=== PATIENT | female | born 1935 | race Caucasian/White ===

== ENCOUNTER → 2023-08-17 11:30 | Outpatient (REF) | payer OTHER, SELFPAY | LOC: WOUND 11:30 | PROVIDERS: ATTENDING PHYSICIAN Surgery Plastic and Reconstructive Surgery; REFERRING PHYSICIAN Family Medicine | DX: L89.623 Pressure ulcer of left heel, stage 3 (principal); L89.150 Pressure ulcer of sacral region, unstageable; I87.2 Venous insufficiency (chronic) (peripheral); I89.0 Lymphedema, not elsewhere classified; I12.9 Hypertensive chronic kidney disease with stage 1 through stage 4 chronic kidney disease, or unspecified chronic kidney disease; N18.32 Chronic kidney disease, stage 3b; I06.0 Rheumatic aortic stenosis; G89.4 Chronic pain syndrome; R26.2 Difficulty in walking, not elsewhere classified; I44.1 Atrioventricular block, second degree; I47.29 Other ventricular tachycardia; Z95.0 Presence of cardiac pacemaker | CPT/HCPCS: 11042; 17250; 97597; 99213 ==

== ENCOUNTER → 2023-08-31 14:26 | Outpatient (REF) | payer OTHER, SELFPAY | LOC: WOUND 14:26 | PROVIDERS: ATTENDING PHYSICIAN Surgery; FAMILY PHYSICIAN Family Medicine | DX: L89.153 Pressure ulcer of sacral region, stage 3 (principal); I87.2 Venous insufficiency (chronic) (peripheral); I10 Essential (primary) hypertension; I89.0 Lymphedema, not elsewhere classified; I12.9 Hypertensive chronic kidney disease with stage 1 through stage 4 chronic kidney disease, or unspecified chronic kidney disease; N18.32 Chronic kidney disease, stage 3b; I06.0 Rheumatic aortic stenosis; G89.4 Chronic pain syndrome; R26.2 Difficulty in walking, not elsewhere classified; I44.1 Atrioventricular block, second degree; I47.29 Other ventricular tachycardia; Z95.0 Presence of cardiac pacemaker | CPT/HCPCS: 11042; 17250; 99213 ==

== ENCOUNTER → 2023-09-13 12:56 | Outpatient (REF) | payer OTHER, SELFPAY | LOC: WOUND 12:56 | PROVIDERS: ATTENDING PHYSICIAN Surgery; REFERRING PHYSICIAN Family Medicine | DX: I87.2 Venous insufficiency (chronic) (peripheral) (principal); L89.154 Pressure ulcer of sacral region, stage 4; N18.32 Chronic kidney disease, stage 3b; I89.0 Lymphedema, not elsewhere classified; I12.9 Hypertensive chronic kidney disease with stage 1 through stage 4 chronic kidney disease, or unspecified chronic kidney disease; I06.0 Rheumatic aortic stenosis; G89.4 Chronic pain syndrome; R26.2 Difficulty in walking, not elsewhere classified; I44.1 Atrioventricular block, second degree; I47.29 Other ventricular tachycardia; Z95.0 Presence of cardiac pacemaker | CPT/HCPCS: 11044; 72190; 76700 ==

== ENCOUNTER → 2023-09-20 14:32 | Outpatient (REF) | payer OTHER, SELFPAY | LOC: WOUND 14:32 | PROVIDERS: ATTENDING PHYSICIAN Surgery; REFERRING PHYSICIAN Family Medicine | DX: L89.154 Pressure ulcer of sacral region, stage 4 (principal); I87.2 Venous insufficiency (chronic) (peripheral); I89.0 Lymphedema, not elsewhere classified; R26.2 Difficulty in walking, not elsewhere classified | CPT/HCPCS: 11042 ==

== ENCOUNTER 2023-09-21 13:14 | Emergency (ER) | payer OTHER, SELFPAY ==
[2023-09-21 13:20] VITALS: BP 132/78
--- NOTE | 2023-09-21 15:43 | ED.GENMED ---
History of Present Illness
General
Chief Complaint: Wound Check/Suture Removal
Source: patient
Exam Limitations: none
Time Seen by Provider: 09/21/23 15:20
Nursing documentation reviewed up to this point in time: agreed with
Travel History
Have you had any contact with someone who has COVID-19?: No
Do you have any symptoms of coronavirus? Fever > 100 degrees, chills, cough, shortness of breath, sore throat, loss of taste or smell, muscle aches, or headache?: No
History of Present Illness
History of Present Illness:
87-year-old female presents emergency department with stage IV wound to sacrum. She has been seen at the wound center. She is them today and was told to come to the emergency department due to the bleeding. She is on Eliquis, and has had the
wound debrided recently.
Past History
Past History
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
ED Past Surgical History: Bowel resection (Gastric bypass), Cardiac (TAVR), Cholecystectomy, Orthopedic (Bilateral knee replacement, ) and Other (Cataracts, Gastric bypas)
Social History
Tobacco: Non-smoker
Alcohol: None
Personal:
Living: with family (Resides with son)
Employment: Retired
Family History
Family History: Other (reviewed and Noncontributory)
Review of Systems
Review of Systems
Allergies reviewed?: Yes
All Other Systems: Not applicable
Constitutional: Reports no symptoms
EENT: Reports no symptoms
Respiratory: Reports no symptoms
Cardiac: Reports no symptoms
ABD/GI: Reports no symptoms
: Reports no symptoms
Musculoskeletal: Reports no symptoms
Skin: Reports other (Open wound)
Neurological: Reports no symptoms
Endocrine: Reports no symptoms
Hematologic/Lymphatic: Reports bleeding
Psychiatric: Reports no symptoms
Phy Exam
Physical Exam
Physical Exam:
Physical Exam
General: no apparent distress, not acutely ill
Neck: supple. no meningeal signs.
HEENT: Pupils equal round reactive to light, EOMI
Lungs: no acute respiratory distress.
Abdomen: Nondistended
Neuro: alert and oriented.
Skin: no rash, open wound sacrum, gauze packing, slight ooze dark red blood
Psychiatric: well kept. interactive and cooperative
Extremities: no edema. no calf tenderness. negative homans. good distal pulses
Course
Vital Signs
Initial and Last Documented VS:
Initial Vital Signs
Temp Pulse Resp BP Pulse Ox
97.7 F 82 18 132/78 98
09/21/23 13:20 09/21/23 13:20 09/21/23 13:20 09/21/23 13:20 09/21/23 13:20
Last Documented Vital Signs
Temp Pulse Resp BP Pulse Ox
97.7 F 82 18 132/78 98
09/21/23 13:20 09/21/23 13:20 09/21/23 13:20 09/21/23 13:20 09/21/23 13:20
Procedures
Wound Exploration
Middle Sacrum:
Preparation: other (Saline)
Procedure- wound: probed to visualize
Findings- Extent of wound is: clearly visualized and other (Bleeding controlled, packed with Surgifoam)
MDM/Problems Addressed
Differential Diagnosis Includes:
Abscess, bleeding wound
MDM/Problems Addressed:
87-year-old female with bleeding sacral wound, slight ooze of blood, repacked with Surgifoam. Patient will follow-up with wound care.
Chronic conditions affecting care: Arrhythmia and Other (Anticoagulation)
Acute Exacerbation and/or Progression of Chronic Illness: Arrhythmia and Other (Anticoagulation)
*Pulse Oximetry
Patient hypoxic: no
*EKG
Interpreted by ED Provider?: NA
*Operations Support Analyst Interpretation
Rate: Operations Support Analyst- N/A
*Critical Care Note
Total Time (30-74mins, 75-104mins- exclusive of procedures): Not Applicable
Patient Management
Social determinants of health affecting care: Living situation
Escalation/DeEscalation of care consider admission/obs:
Admit not indicated
ED Attending Note
-
Portions of this chart may have been created with voice recognition software.� Occasional wrong word or��sound alike� substitutions may have occurred due to the inherent limitations of voice recognition software.
Discharge Plan
Departure
Patient Disposition: Home (Routine Discharge)
Date of Disposition: 09/21/23
Time of Disposition: 15:49
Patient with high blood pressure during this ER visit?: Yes
Discharge Problem:
Wound of sacral region
Instructions: Wound Care ([place]), [facility], BLOOD PRESSURE
Prescriptions:
No Action
cyanocobalamin (vitamin B-12) 1,000 MCG tablet
500 mcg PO HS
oxybutynin chloride 5 mg Tablet
5 mg PO BID
gabapentin 300 mg capsule
300 mg PO TID
calcium carbonate-vitamin D3 [Calcium 600 + D(3)] 600 mg-10 mcg (400 unit) Tablet
1 tab PO DAILY Qty: 0
atorvastatin 40 MG tablet
40 mg PO HS
Hold Instructions: Resume on 04/24/23. Resume on April 24, 2023 after you finish taking your Paxlovid (Nirmatrelvir 300 mg with ritonavir 100 mg). DO NOT TAKE THE ATORVASTATIN WHILE TAKING PAXLOVID.
docusate sodium 100 mg capsule
100 mg PO BID
levothyroxine 150 MCG tablet
150 mcg PO DAILY Qty: 0 0RF
Rx Instructions:
increase from 5x/week to daily
multivitamin Tablet
1 tab PO DAILY
midodrine 5 mg Tablet
10 mg PO TID@0800,1300,1800 Qty: 60 1RF
amoxicillin 500 mg Capsule
500 mg PO TID Qty: 13 0RF
Paxlovid 300 mg (150 mg x 2)-100 mg Tablets,Dose Pack
See Rx Instructions .ROUTE .COMPLEX Qty: 3 0RF
Rx Instructions:
Nirmatrelvir 300 mg with ritonavir 100 mg, administered together, twice daily for 3 more days (Apr 21, 2023 to Apr 23, 2023)
clindamycin HCl 150 mg capsule
450 mg PO TID 7 Days Qty: 63 0RF
Interventions
Interventions:
*Risk Screen - Suicide Last Done: 09/21/23 13:20
*Neglect/Abuse Screening Last Done: 09/21/23 13:20
ED- Fall Risk Assessment Last Done: 09/21/23 15:48
*ED COVID-19 Vaccine History Last Done: 09/21/23 13:20
ED-Skin Assessment Last Done: 09/21/23 15:47
== END 2023-09-21 16:03 | disposition home or self-care (01) ==
LOC: EMR 13:14
PROVIDERS: EMERGENCY PHYSICIAN Emergency Medicine; FAMILY PHYSICIAN Family Medicine
DX: S31.000A Unspecified open wound of lower back and pelvis without penetration into retroperitoneum, initial encounter (principal); X58.XXXA Exposure to other specified factors, initial encounter
CPT/HCPCS: 99283

== ENCOUNTER → 2023-09-27 15:21 | Outpatient (REF) | payer OTHER, SELFPAY | LOC: WOUND 15:21 | PROVIDERS: ATTENDING PHYSICIAN Surgery; REFERRING PHYSICIAN Family Medicine | DX: L89.154 Pressure ulcer of sacral region, stage 4 (principal); I87.2 Venous insufficiency (chronic) (peripheral); N18.32 Chronic kidney disease, stage 3b; I89.0 Lymphedema, not elsewhere classified; I12.9 Hypertensive chronic kidney disease with stage 1 through stage 4 chronic kidney disease, or unspecified chronic kidney disease; I06.0 Rheumatic aortic stenosis; G89.4 Chronic pain syndrome; R26.2 Difficulty in walking, not elsewhere classified; J44.1 Chronic obstructive pulmonary disease with (acute) exacerbation; I47.29 Other ventricular tachycardia; Z95.0 Presence of cardiac pacemaker | CPT/HCPCS: 11042; 99213 ==

== ENCOUNTER → 2023-10-03 14:39 | Outpatient (REF) | payer OTHER, SELFPAY | LOC: WOUND 14:39 | PROVIDERS: ATTENDING PHYSICIAN Surgery; FAMILY PHYSICIAN Family Medicine | DX: L89.154 Pressure ulcer of sacral region, stage 4 (principal); I87.2 Venous insufficiency (chronic) (peripheral); N18.32 Chronic kidney disease, stage 3b; I89.0 Lymphedema, not elsewhere classified; I12.9 Hypertensive chronic kidney disease with stage 1 through stage 4 chronic kidney disease, or unspecified chronic kidney disease; I06.0 Rheumatic aortic stenosis; G89.4 Chronic pain syndrome; R26.2 Difficulty in walking, not elsewhere classified; I44.1 Atrioventricular block, second degree; I47.29 Other ventricular tachycardia; Z95.0 Presence of cardiac pacemaker | CPT/HCPCS: 11042; 97605; 99213 ==

== ENCOUNTER → 2023-10-10 12:11 | Outpatient (REF) | payer OTHER, SELFPAY | LOC: WOUND 12:11 | PROVIDERS: ATTENDING PHYSICIAN Surgery; FAMILY PHYSICIAN Family Medicine | DX: L89.154 Pressure ulcer of sacral region, stage 4 (principal); I87.2 Venous insufficiency (chronic) (peripheral); N18.32 Chronic kidney disease, stage 3b; I89.0 Lymphedema, not elsewhere classified; I12.9 Hypertensive chronic kidney disease with stage 1 through stage 4 chronic kidney disease, or unspecified chronic kidney disease; I06.0 Rheumatic aortic stenosis; G89.4 Chronic pain syndrome; R26.2 Difficulty in walking, not elsewhere classified; I47.29 Other ventricular tachycardia; Z95.0 Presence of cardiac pacemaker | CPT/HCPCS: 11042; 97605 ==

== ENCOUNTER → 2023-10-17 14:19 | Outpatient (REF) | payer OTHER, SELFPAY | LOC: WOUND 14:19 | PROVIDERS: ATTENDING PHYSICIAN Surgery; FAMILY PHYSICIAN Family Medicine | DX: L89.154 Pressure ulcer of sacral region, stage 4 (principal); I87.2 Venous insufficiency (chronic) (peripheral); N18.32 Chronic kidney disease, stage 3b; I89.0 Lymphedema, not elsewhere classified; I12.9 Hypertensive chronic kidney disease with stage 1 through stage 4 chronic kidney disease, or unspecified chronic kidney disease; I06.0 Rheumatic aortic stenosis; G89.4 Chronic pain syndrome; R26.2 Difficulty in walking, not elsewhere classified; I44.1 Atrioventricular block, second degree; I47.29 Other ventricular tachycardia; Z95.0 Presence of cardiac pacemaker | CPT/HCPCS: 11042; 97607 ==

== ENCOUNTER → 2023-10-24 12:42 | Outpatient (REF) | payer OTHER, SELFPAY | LOC: WOUND 12:42 | PROVIDERS: ATTENDING PHYSICIAN Surgery; FAMILY PHYSICIAN Family Medicine | DX: L89.154 Pressure ulcer of sacral region, stage 4 (principal); I87.2 Venous insufficiency (chronic) (peripheral); I10 Essential (primary) hypertension; N18.32 Chronic kidney disease, stage 3b; I89.0 Lymphedema, not elsewhere classified; I12.9 Hypertensive chronic kidney disease with stage 1 through stage 4 chronic kidney disease, or unspecified chronic kidney disease; G89.4 Chronic pain syndrome; R26.2 Difficulty in walking, not elsewhere classified; I44.1 Atrioventricular block, second degree; I47.29 Other ventricular tachycardia; Z95.0 Presence of cardiac pacemaker | CPT/HCPCS: 11042; 97607 ==

== ENCOUNTER → 2023-10-31 13:31 | Outpatient (REF) | payer OTHER, SELFPAY | LOC: WOUND 13:31 | PROVIDERS: ATTENDING PHYSICIAN Surgery; FAMILY PHYSICIAN Family Medicine | DX: I87.2 Venous insufficiency (chronic) (peripheral) (principal); L89.154 Pressure ulcer of sacral region, stage 4; N18.32 Chronic kidney disease, stage 3b; I89.0 Lymphedema, not elsewhere classified; I12.9 Hypertensive chronic kidney disease with stage 1 through stage 4 chronic kidney disease, or unspecified chronic kidney disease; I06.0 Rheumatic aortic stenosis; G89.4 Chronic pain syndrome; I44.1 Atrioventricular block, second degree; I47.29 Other ventricular tachycardia; Z95.0 Presence of cardiac pacemaker | CPT/HCPCS: 11042; 97607 ==

== ENCOUNTER → 2023-11-07 14:28 | Outpatient (REF) | payer OTHER, SELFPAY | LOC: WOUND 14:28 | PROVIDERS: ATTENDING PHYSICIAN Surgery; FAMILY PHYSICIAN Family Medicine | DX: L89.154 Pressure ulcer of sacral region, stage 4 (principal); I87.2 Venous insufficiency (chronic) (peripheral); N18.32 Chronic kidney disease, stage 3b; I89.0 Lymphedema, not elsewhere classified; I12.9 Hypertensive chronic kidney disease with stage 1 through stage 4 chronic kidney disease, or unspecified chronic kidney disease; I06.0 Rheumatic aortic stenosis; G89.4 Chronic pain syndrome; R26.2 Difficulty in walking, not elsewhere classified; I44.1 Atrioventricular block, second degree; I47.29 Other ventricular tachycardia; Z95.0 Presence of cardiac pacemaker | CPT/HCPCS: 11042; 97605 ==

== ENCOUNTER → 2023-11-14 14:43 | Outpatient (REF) | payer OTHER, SELFPAY | LOC: WOUND 14:43 | PROVIDERS: ATTENDING PHYSICIAN Surgery; FAMILY PHYSICIAN Family Medicine | DX: L89.154 Pressure ulcer of sacral region, stage 4 (principal); I87.2 Venous insufficiency (chronic) (peripheral); N18.32 Chronic kidney disease, stage 3b; I89.0 Lymphedema, not elsewhere classified; I12.9 Hypertensive chronic kidney disease with stage 1 through stage 4 chronic kidney disease, or unspecified chronic kidney disease; I06.0 Rheumatic aortic stenosis; G89.4 Chronic pain syndrome; R26.2 Difficulty in walking, not elsewhere classified; I47.29 Other ventricular tachycardia; I44.1 Atrioventricular block, second degree | CPT/HCPCS: 11042; 97607 ==

== ENCOUNTER → 2023-11-28 14:27 | Outpatient (REF) | payer OTHER, SELFPAY | LOC: WOUND 14:27 | PROVIDERS: ATTENDING PHYSICIAN Surgery; FAMILY PHYSICIAN Family Medicine | DX: L89.154 Pressure ulcer of sacral region, stage 4 (principal); I87.2 Venous insufficiency (chronic) (peripheral); N18.32 Chronic kidney disease, stage 3b; I89.0 Lymphedema, not elsewhere classified; I12.9 Hypertensive chronic kidney disease with stage 1 through stage 4 chronic kidney disease, or unspecified chronic kidney disease; I06.0 Rheumatic aortic stenosis; G89.4 Chronic pain syndrome; R26.2 Difficulty in walking, not elsewhere classified; I44.1 Atrioventricular block, second degree; I47.29 Other ventricular tachycardia; Z95.0 Presence of cardiac pacemaker | CPT/HCPCS: 11042; 97605 ==

== ENCOUNTER → 2023-12-05 14:08 | Outpatient (REF) | payer OTHER, SELFPAY | LOC: WOUND 14:08 | PROVIDERS: ATTENDING PHYSICIAN Surgery; FAMILY PHYSICIAN Family Medicine | DX: L89.154 Pressure ulcer of sacral region, stage 4 (principal); I87.2 Venous insufficiency (chronic) (peripheral); I10 Essential (primary) hypertension; N18.32 Chronic kidney disease, stage 3b; I89.0 Lymphedema, not elsewhere classified; I12.9 Hypertensive chronic kidney disease with stage 1 through stage 4 chronic kidney disease, or unspecified chronic kidney disease; I06.0 Rheumatic aortic stenosis; G89.4 Chronic pain syndrome; R26.2 Difficulty in walking, not elsewhere classified; I44.1 Atrioventricular block, second degree; I47.29 Other ventricular tachycardia; Z95.0 Presence of cardiac pacemaker | CPT/HCPCS: 11042; 97605 ==

== ENCOUNTER → 2023-12-05 15:17 | Outpatient (REF) | payer OTHER, SELFPAY | LOC: RAD 15:17 | PROVIDERS: ATTENDING PHYSICIAN Nurse Practitioner Family; FAMILY PHYSICIAN Family Medicine | DX: S99.921A Unspecified injury of right foot, initial encounter (principal); R60.0 Localized edema | CPT/HCPCS: 73630 ==

== ENCOUNTER → 2023-12-12 14:45 | Outpatient (REF) | payer OTHER, SELFPAY | LOC: WOUND 14:45 | PROVIDERS: ATTENDING PHYSICIAN Surgery; FAMILY PHYSICIAN Family Medicine | DX: L89.154 Pressure ulcer of sacral region, stage 4 (principal); I87.2 Venous insufficiency (chronic) (peripheral); N18.32 Chronic kidney disease, stage 3b; I89.0 Lymphedema, not elsewhere classified; I12.9 Hypertensive chronic kidney disease with stage 1 through stage 4 chronic kidney disease, or unspecified chronic kidney disease; I06.0 Rheumatic aortic stenosis; G89.4 Chronic pain syndrome; R26.2 Difficulty in walking, not elsewhere classified; I44.1 Atrioventricular block, second degree; I47.29 Other ventricular tachycardia; Z95.0 Presence of cardiac pacemaker | CPT/HCPCS: 11042; 97605 ==

== ENCOUNTER → 2023-12-26 14:01 | Outpatient (REF) | payer OTHER, SELFPAY | LOC: WOUND 14:01 | PROVIDERS: ATTENDING PHYSICIAN Surgery; FAMILY PHYSICIAN Family Medicine | DX: L89.154 Pressure ulcer of sacral region, stage 4 (principal); I87.2 Venous insufficiency (chronic) (peripheral); I12.9 Hypertensive chronic kidney disease with stage 1 through stage 4 chronic kidney disease, or unspecified chronic kidney disease; I89.0 Lymphedema, not elsewhere classified; N18.32 Chronic kidney disease, stage 3b; I06.0 Rheumatic aortic stenosis; G89.4 Chronic pain syndrome; R26.2 Difficulty in walking, not elsewhere classified; I44.1 Atrioventricular block, second degree; I47.29 Other ventricular tachycardia; Z95.0 Presence of cardiac pacemaker | CPT/HCPCS: 99213 ==

== ENCOUNTER → 2024-01-09 14:11 | Outpatient (REF) | payer OTHER, SELFPAY | LOC: WOUND 14:11 | PROVIDERS: ATTENDING PHYSICIAN Surgery; FAMILY PHYSICIAN Family Medicine | DX: L89.154 Pressure ulcer of sacral region, stage 4 (principal); I87.2 Venous insufficiency (chronic) (peripheral); N18.32 Chronic kidney disease, stage 3b; I89.0 Lymphedema, not elsewhere classified; I12.9 Hypertensive chronic kidney disease with stage 1 through stage 4 chronic kidney disease, or unspecified chronic kidney disease; I06.0 Rheumatic aortic stenosis; G89.4 Chronic pain syndrome; R26.2 Difficulty in walking, not elsewhere classified; I44.1 Atrioventricular block, second degree; I47.29 Other ventricular tachycardia; Z95.0 Presence of cardiac pacemaker | CPT/HCPCS: 11042 ==

== ENCOUNTER → 2024-01-23 09:57 | Outpatient (REF) | payer OTHER, SELFPAY | LOC: WOUND 09:57 | PROVIDERS: ATTENDING PHYSICIAN Surgery; FAMILY PHYSICIAN Family Medicine | DX: L89.154 Pressure ulcer of sacral region, stage 4 (principal); I87.2 Venous insufficiency (chronic) (peripheral); N18.32 Chronic kidney disease, stage 3b; I89.0 Lymphedema, not elsewhere classified; I12.9 Hypertensive chronic kidney disease with stage 1 through stage 4 chronic kidney disease, or unspecified chronic kidney disease; G89.4 Chronic pain syndrome; I06.0 Rheumatic aortic stenosis; R26.2 Difficulty in walking, not elsewhere classified; I44.1 Atrioventricular block, second degree; I47.29 Other ventricular tachycardia; Z95.0 Presence of cardiac pacemaker | CPT/HCPCS: 11042 ==

== ENCOUNTER → 2024-02-20 13:55 | Outpatient (REF) | payer OTHER, SELFPAY | LOC: MRI 13:55 | PROVIDERS: ATTENDING PHYSICIAN Surgery; FAMILY PHYSICIAN Family Medicine | DX: L89.154 Pressure ulcer of sacral region, stage 4 (principal) | CPT/HCPCS: 72195 ==

== ENCOUNTER → 2024-02-20 15:43 | Outpatient (REF) | payer OTHER, SELFPAY ==
[2024-02-20 14:04] LABS: % Eosinophils 4.1 % (0-6); % Immature Granulocytes 0.2 % (0-0.5); % Lymphocytes 24.2 % (20.5-51.1); % Monocytes 7.9 % (1.7-9.3); % Neutrophils 62.6 % (42.2-75.2); Absolute Basophils 0.1 10^3/uL (0-0.2); Absolute Eosinophils 0.2 10^3/uL (0-0.7); Absolute Lymphocytes 1.4 10^3/uL (1.2-3.4); Absolute Monocytes 0.5 10^3/uL (0.1-0.6); Absolute Neutrophils 3.7 10^3/uL (1.4-6.5); Hematocrit 36.4 % (37.0-47.0); Hemoglobin 11.4 g/dL (12.0-16.0); Mean Corp Hgb Conc. 31.3 g/dL (33.0-37.0); Mean Corpuscular Hgb 28.1 pg (27.0-31.0); Mean Corpuscular Volume 89.7 fL (81.0-99.0); Mean Platelet Volume 10.3 fL (7.4-10.4); Nucleated Red Blood Cells % 0 %; Platelet Count 175 10^3/uL (130-400); Red Blood Cell Count 4.06 10^6/uL (4.20-5.40); Red Cell Dist. Width 16.1 % (11.5-14.5); White Blood Cell Count 5.9 10^3/uL (4.8-10.8)
== END ==
LOC: OIDL 15:43
PROVIDERS: ATTENDING PHYSICIAN Internal Medicine Hematology & Oncology
DX: D50.9 Iron deficiency anemia, unspecified (principal)
CPT/HCPCS: 85025

== ENCOUNTER → 2024-02-21 13:29 | Outpatient (REF) | payer OTHER, SELFPAY | LOC: WOUND 13:29 | PROVIDERS: ATTENDING PHYSICIAN Surgery; FAMILY PHYSICIAN Family Medicine | DX: L89.154 Pressure ulcer of sacral region, stage 4 (principal); I87.2 Venous insufficiency (chronic) (peripheral); N18.32 Chronic kidney disease, stage 3b; I89.0 Lymphedema, not elsewhere classified; I12.9 Hypertensive chronic kidney disease with stage 1 through stage 4 chronic kidney disease, or unspecified chronic kidney disease; I06.0 Rheumatic aortic stenosis; G89.4 Chronic pain syndrome; R26.2 Difficulty in walking, not elsewhere classified; I44.1 Atrioventricular block, second degree; I47.29 Other ventricular tachycardia; Z95.0 Presence of cardiac pacemaker | CPT/HCPCS: 99213 ==

== ENCOUNTER → 2024-02-29 10:25 | Outpatient (REF) | payer OTHER, SELFPAY | LOC: WDC 10:25 | PROVIDERS: ATTENDING PHYSICIAN Nurse Practitioner Family | DX: N63.42 Unspecified lump in left breast, subareolar (principal); N63.10 Unspecified lump in the right breast, unspecified quadrant | CPT/HCPCS: 76642; 77062; 77066 ==

== ENCOUNTER → 2024-03-06 12:50 | Outpatient (REF) | payer OTHER, SELFPAY ==
[2024-03-06 13:00] LABS: % Basophils 0.4 % (0-2); % Immature Granulocytes 0.2 % (0-0.5); % Lymphocytes 29.4 % (20.5-51.1); % Monocytes 9.1 % (1.7-9.3); % Neutrophils 56.9 % (42.2-75.2); Absolute Eosinophils 0.2 10^3/uL (0-0.7); Absolute Lymphocytes 1.5 10^3/uL (1.2-3.4); Absolute Monocytes 0.5 10^3/uL (0.1-0.6); Absolute Neutrophils 2.8 10^3/uL (1.4-6.5); Hematocrit 32.5 % (37.0-47.0); Hemoglobin 10.6 g/dL (12.0-16.0); Mean Corp Hgb Conc. 32.6 g/dL (33.0-37.0); Mean Corpuscular Hgb 29.2 pg (27.0-31.0); Mean Corpuscular Volume 89.5 fL (81.0-99.0); Platelet Count 156 10^3/uL (130-400); Red Blood Cell Count 3.63 10^6/uL (4.20-5.40); Red Cell Dist. Width 16.1 % (11.5-14.5)
[2024-03-06 15:47] LABS: Iron 109 ug/dl (37-170)
[2024-03-06 15:56] LABS: Percent Saturation 50 % (20-50); Total Iron Binding Capacity 216 ug/dl (265-497)
== END ==
LOC: OIDL 12:50
PROVIDERS: ATTENDING PHYSICIAN Internal Medicine Hematology & Oncology
DX: D50.9 Iron deficiency anemia, unspecified (principal); K90.9 Intestinal malabsorption, unspecified; D63.1 Anemia in chronic kidney disease
CPT/HCPCS: 36415; 82728; 83540; 83550; 85025

== ENCOUNTER → 2024-03-09 13:20 | Outpatient (REF) | payer OTHER, SELFPAY | LOC: WOUND 13:20 | PROVIDERS: ATTENDING PHYSICIAN Surgery; FAMILY PHYSICIAN Family Medicine | DX: L89.154 Pressure ulcer of sacral region, stage 4 (principal); I87.2 Venous insufficiency (chronic) (peripheral) | CPT/HCPCS: 11042; 87070; 87075; 87076; 87077; 87186; 87205 ==

== ENCOUNTER 2024-03-17 13:36 | Inpatient (IN) | payer OTHER, SELFPAY ==
[2024-03-17] VITALS (19 sets, daily range): BP systolic 115–155; BP diastolic 45–114; BMI 29.2
[2024-03-17 11:33] LABS: % Basophils 0.7 % (0-2); % Eosinophils 3.9 % (0-6); % Immature Granulocytes 0.2 % (0-0.5); % Lymphocytes 25.6 % (20.5-51.1); % Monocytes 7.4 % (1.7-9.3); % Neutrophils 62.2 % (42.2-75.2); Absolute Eosinophils 0.2 10^3/uL (0-0.7); Absolute Monocytes 0.3 10^3/uL (0.1-0.6); Absolute Neutrophils 2.5 10^3/uL (1.4-6.5); Hematocrit 21.6 % (37.0-47.0); Hemoglobin 7.1 g/dL (12.0-16.0); Mean Corp Hgb Conc. 32.9 g/dL (33.0-37.0); Mean Corpuscular Hgb 29.7 pg (27.0-31.0); Mean Corpuscular Volume 90.4 fL (81.0-99.0); Mean Platelet Volume 9.7 fL (7.4-10.4); Nucleated Red Blood Cells % 0 %; Platelet Count 146 10^3/uL (130-400); Red Blood Cell Count 2.39 10^6/uL (4.20-5.40); Red Cell Dist. Width 17.7 % (11.5-14.5); White Blood Cell Count 4.1 10^3/uL (4.8-10.8)
[2024-03-17 11:47] LABS: ALT (SGPT) 56 U/L (0-35); AST (SGOT) 68 U/L (14-36); Alkaline Phosphatase 75 U/L (38-126); Blood Urea Nitrogen 47 mg/dl (7-17); Calcium 8.3 mg/dl (8.4-10.2); Carbon Dioxide 27 mmol/L (22-30); Chloride 105 mmol/L (98-107); Estimated Creatinine Clearance 34 ml/min; Glucose 130 mg/dl (70-99); Sodium 135 mmol/L (135-145); Total Bilirubin 0.3 mg/dl (0.2-1.3); eGFR 48.63
--- NOTE | 2024-03-17 12:00 | ED.GENMED ---
History of Present Illness
General
Chief Complaint: Fainting/Passed Out
Source: patient and family
Exam Limitations: none
Time Seen by Provider: 03/17/24 11:29
Nursing documentation reviewed up to this point in time: agreed with
History of Present Illness
History of Present Illness:
pt si a 88 y/o F with h/o pacer, s/p TAVR, orthostasis, h/o chronic anemia, s/p remotegastric bypass
here with syncope today witnessed by son
pt apparently had normal morning, was helped up and to breakfast
was sitting in her chair when son came downstairs and noticed she looked pale and wasn't really responding, staring off; he got her to wake up and then went to get her up to the commode and she had a full syncope episode, eyes still open but not
responsive; never stopped breathing, no sahking
911 pts bp 70s/50s
recovered with ivf
now feels fine
says she felt weak just before this happened
no cp, sob,
apparently pt has been having some blck stools the past few weeks but they did seem to clear up to a normal bottle blower brown
she has a remote history pof some sort of ulcer or something in her stomach years ago causing GI bleed
it was not treated here
she is not chroniclaly on PPI
no abdominal pain, fever, chills
does see heme for epogen for anemia
last hg 10 from 03/06
Past History
Past History
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
ED Past Surgical History: Bowel resection (Gastric bypass), Cardiac (TAVR), Cholecystectomy, Orthopedic (Bilateral knee replacement, ) and Other (Cataracts, Gastric bypas)
Social History
Tobacco: Non-smoker
Alcohol: None
Personal:
Living: with family (Resides with son)
Employment: Retired
Family History
Family History: Other (reviewed and Noncontributory)
Review of Systems
Review of Systems
Allergies reviewed?: Yes
All Other Systems: Not applicable
Phy Exam
Physical Exam
Physical Exam:
GENERAL: Alert , in no apparent distress
EYE: pupils equal and reactive
NECK: Supple
ENT: o/p clr, mmm.
CARDIAC: Regular rate and rhythm .
LUNGS: Clear breath sounds bilaterally, no acute respiratory distress, no wheezes/rales/rhonchi
ABDOMEN: Soft, without focal tenderness, no r/g, no cvat, normal bowel sounds
NEUROLOGICAL: Alert and oriented, no focal neuro deficits
SKIN: Warm and dry, skin intact.
MUSCULOSKELETAL: No edema, well perfused. neg shanelle's sign
PSYCH: Normal and appropriate interaction.
Course
Orders/Labs/Results
Orders:
Orders
03/17/24 11:12
Electrocardiogram (*1) Urgent
Reason for Study: Syncope
03/17/24 11:13
EKG- Treatment ONCE
03/17/24 11:20
UA Reflex to Culture [Urinalysis Reflex To Culture] Urgent
Date Specimen was Collected: 03/17/24
Time Specimen was Collected: 11:20
03/17/24 11:22
CMP [Comprehensive Metabolic Panel] Urgent
Complete Blood Count/With Diff Urgent
03/17/24 11:42
Type And Crossmatch Urgent
03/17/24 11:59
* Blood Bank Products Urgent
Blood Bank Products: *Packed RBC Leuko(PRBC's)
Quantity: 1
Transfuse Today: Yes
Reason: Anemia
03/17/24 12:07
0.9% Sodium Chloride 500 ml [Nss] 500 ml IV BOLUS
03/17/24 12:15
Pantoprazole 80 mg/100 ml Nss [Protonix] 80 mg in 100 ml IV Q10H
Abnormal Lab Results
03/17/24
11:22
WBC 4.1 L 10^3/uL
(4.8-10.8)
RBC 2.39 L 10^6/uL
(4.20-5.40)
Hgb 7.1 L g/dL
(12.0-16.0)
Hct 21.6 L %
(37.0-47.0)
MCHC 32.9 L g/dL
(33.0-37.0)
RDW 17.7 H %
(11.5-14.5)
Absolute Lymphs (auto) 1.0 L 10^3/uL
(1.2-3.4)
BUN 47 H mg/dl
(7-17)
Creatinine 1.1 H mg/dL
(0.6-1.0)
Glucose 130 H mg/dl
(70-99)
Calcium 8.3 L mg/dl
(8.4-10.2)
AST 68 H U/L
(14-36)
ALT 56 H U/L
(0-35)
Total Protein 6.0 L g/dl
(6.3-8.2)
Albumin 3.0 L g/dl
(3.5-5.0)
03/17/24 11:22
03/17/24 11:22
Vital Signs
Initial and Last Documented VS:
Initial Vital Signs
Temp Pulse Resp BP Pulse Ox
97.7 F 70 18 128/56 100
03/17/24 11:13 03/17/24 11:13 03/17/24 11:13 03/17/24 11:13 03/17/24 11:13
Last Documented Vital Signs
Temp Pulse Resp BP Pulse Ox
97.7 F 70 14 128/56 100
03/17/24 11:13 03/17/24 11:16 03/17/24 11:16 03/17/24 11:16 03/17/24 11:13
MDM/Problems Addressed
Differential Diagnosis Includes:
syncope, orthostasis, GI bleed, anemia
MDM/Problems Addressed:
rashaad pool 88 y/o F with h/ol remote gastric bypass and remote GI bleed (sounds like from stomach, treated elsewhere, son doesn' tknow details but said it wasn't an ulcer)
not on PPI
TAVR
pacer
chronic anemia on epogen; last hg 10 fro 03/06
had 2 syncopal events this morning and for EMS was hypotensive 70/50; bp here 120/60
apparently had been having a week or more of black stools but more recently look bottle blower brown
no abd pain, no cp, no sob
not anticoagulated
has h/o pacer for bradycardia
today abdomen notnender
pt awake and alert
pale
murmur on exam
abd soft nontender
small hernia
hg is 7.1
her stool was bottle blower brown in her vault, no active bleeeding, may have had a trace of red; def heme pos
getting iv protonix and i will transfuse;
pacer will be interrogated
GI attending aware
pacer interrogated no events, i spoke with rep at 1220;
*Critical Care Note
Total Time (30-74mins, 75-104mins- exclusive of procedures): Not Applicable
ED Attending Note
-
Portions of this chart may have been created with voice recognition software.� Occasional wrong word or��sound alike� substitutions may have occurred due to the inherent limitations of voice recognition software.
Discharge Plan
Departure
Patient Disposition: Admit
Date of Disposition: 03/17/24
Time of Disposition: 12:09
Admit to: IMU
Presentation/result/management discussed w/ accepting MD/DO: Hospitalist
Condition: Fair
Covid-19: Not Applicable
Discharge Problem:
GI bleed, Syncope, Symptomatic anemia
Prescriptions:
No Action
cyanocobalamin (vitamin B-12) 1,000 MCG tablet
500 mcg PO HS
oxybutynin chloride 5 mg Tablet
5 mg PO BID
gabapentin 300 mg capsule
300 mg PO TID
calcium carbonate-vitamin D3 [Calcium 600 + D(3)] 600 mg-10 mcg (400 unit) Tablet
1 tab PO DAILY Qty: 0
atorvastatin 40 MG tablet
40 mg PO HS
docusate sodium 100 mg capsule
100 mg PO BID
levothyroxine 150 MCG tablet
150 mcg PO DAILY Qty: 0 0RF
Rx Instructions:
increase from 5x/week to daily
multivitamin Tablet
1 tab PO DAILY
midodrine 5 mg Tablet
10 mg PO TID@0800,1300,1800 Qty: 60 1RF
amoxicillin 500 mg Capsule
500 mg PO TID Qty: 13 0RF
Paxlovid 300 mg (150 mg x 2)-100 mg Tablets,Dose Pack
See Rx Instructions .ROUTE .COMPLEX Qty: 3 0RF
Rx Instructions:
Nirmatrelvir 300 mg with ritonavir 100 mg, administered together, twice daily for 3 more days (Apr 21, 2023 to Apr 23, 2023)
clindamycin HCl 150 mg capsule
450 mg PO TID 7 Days Qty: 63 0RF
Referrals:
Dima Maldonado MD [Family Provider] -
Interventions
Interventions:
*Risk Screen - Suicide Last Done: 03/17/24 11:18
*General Assessment Last Done: 03/17/24 11:19
*Neglect/Abuse Screening Last Done: 03/17/24 11:18
ED- Fall Risk Assessment Last Done: 03/17/24 11:22
*ED COVID-19 Vaccine History Last Done: 03/17/24 11:21
ED- Cardiac Assessment Last Done: 03/17/24 11:22
ED- Neurological Assessment Last Done: 03/17/24 11:22
Discharge Date and Time
Print Language: BULGARIAN
[2024-03-17] MEDS: NSS 500 IV (12:13)
--- NOTE | 2024-03-17 12:23 | HPS.HSE ---
Family Physician
-
Family Physician: Dima Maldonado
Chief Complaint
-
syncope
History of Present Illness
88 y/o F with PMHx:
CKD3b
Chronic, mild transaminitis
Hyperlipidemia
h/o symptomatic orthostatic hypotension and chronic hypotension
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
Anemia of chronic disease
Paroxysmal A-fib
Hypothyroidism
h/o Right Distal Femur Fracture s/p Open Reduction Internal Fixation in January 2023
h/o Pneumonia with Parapneumonic Effusion requiring Thoracentesis in January 2023
h/o Hemorrhagic Pericardial effusion with Tamponade status post Pericardiocentesis in January 2023
Prior to admission wounds: Left heel pressure ulcer, Left heel unstageable in center, with ring of stage 2 vs 3 surrounding eschar
who p/w CC syncope. Patient reports she helped with breakfast this morning. She was in her wheelchair and felt too weak to get up. As per her family the patient was sitting in her wheelchair unresponsive. The patient's son was able to arouse
her. When he was trying to get her to the commode she passed out. No witnessed tonic-clonic activity. EMS was called and the patient's blood pressure was 70s/50s. Blood pressure improved with IV fluids. Currently the patient feels asymptomatic.
The patient states a few weeks ago she had a few days of melena. She denies chest pain, shortness of breath, abdominal pain, nausea, vomiting, diarrhea, headache, neck stiffness, rash, dysuria, focal neurological deficit.
Medical History
Past Medical History
Past Medical History: Reports Other (as per HPI)
Past Surgical History: Reports Other (as per HPI)
Social History
Tobacco: Non-smoker
Alcohol: None
Drug: None
Family History
Family History: Not pertinent
Allergies / Home Medications
Allergies reflects when Allergies were last updated in [facility].
Home Medications with original date entered in [facility]
Allergy/Medication List:
Allergies
Allergy/AdvReac Type Severity Reaction Status Date / Time
erythromycin base Allergy Unknown Verified 09/21/23 13:20
Penicillins Allergy skin rxn Verified 09/21/23 13:20
after
'shots';Tolerated
cephalosporins,
Amoxicillin
Home Medications
cyanocobalamin (vitamin B-12) 1,000 mcg tablet 1,000 mcg PO DAILY Supplement 07/25/21
oxybutynin chloride 5 mg tablet 5 mg PO BID Urinary issue 04/28/22
calcium carbonate 600 mg-vitamin D3 10 mcg (400 unit) tablet (Calcium 600 + D(3)) 1 tab PO DAILY Supplement ##0 02/11/23
gabapentin 300 mg capsule 300 mg PO BID Pain 02/11/23
docusate sodium 100 mg capsule 100 mg PO BID Constipation 02/24/23
levothyroxine 150 mcg tablet 150 mcg PO DAILY Thyroid #0 tabs 03/03/23
apixaban 5 mg tablet (Eliquis) 5 mg PO BID 03/17/24
atorvastatin 40 mg tablet 40 mg PO HS 03/17/24
flaxseed oil 1,000 mg capsule 1,000 mg PO HS 03/17/24
furosemide 20 mg tablet 20 mg PO DAILY 03/17/24
omega [id number]-fish oil 1,200 mg (144 mg-216 mg) capsule (Fish Oil) 1 cap PO BID 03/17/24
sennosides 8.6 mg tablet (senna) 8.6 mg PO HS 03/17/24
therapeutic multivitamin 1 tab PO DAILY 03/17/24
Review of Systems
-
History Source: Patient
A 12 point ROS was completed and negative except as noted: Yes
Physical Exam
Vital Signs
Vital Signs
Temp Pulse Resp BP Pulse Ox
97.7 F 70 14 128/56 100
03/17/24 11:13 03/17/24 11:16 03/17/24 11:16 03/17/24 11:16 03/17/24 11:13
Physical Exam
General: Other (.)
Laboratory Results
-
03/17/24 11:22
03/17/24 11:22
Laboratory Results
Total Bilirubin 0.3 mg/dl (0.2-1.3) 03/17/24 11:22
AST 68 U/L (14-36) H 03/17/24 11:22
ALT 56 U/L (0-35) H 03/17/24 11:22
Alkaline Phosphatase 75 U/L (38-126) 03/17/24 11:22
Impression/Plan
-
Gen: NAD, AAOx3.
Eyes: EOMI, PERRLA, no scleral icterus.
Neck: supple.
CV: RRR, +S1/S2, no m/r/g.
Resp: CTAB, no rales, wheezes, or rhonchi.
Abd: +BS, soft, NT, ND
Skin: No rashes. 2+ B/L LE lymphedema
Neuro: CN 2-12 intact, non-focal.
Psych: Normal mood and affect.
Syncope due to acute blood loss anemia (on chronic anemia) due to upper gastrointestinal bleeding exacerbated by Eliquis:
-stop Eliquis (last dose 03/17/24AM)
-NPO/IVFs/PPI gtt
-trend Hb
-transfuse 2U pRBCs
-c/s GI For EGD
Other problems:
CKD3b
Chronic, mild transaminitis
Hyperlipidemia: cont statin
h/o symptomatic orthostatic hypotension and chronic hypotension
Transcatheter aortic valve replacement 23mm Aquino KAE 3 on 11/10/22
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
Anemia of chronic disease
Paroxysmal A-fib: Hold Eliquis.
Hypothyroidism: cont Synthroid
h/o Right Distal Femur Fracture s/p Open Reduction Internal Fixation in January 2023
h/o Pneumonia with Parapneumonic Effusion requiring Thoracentesis in January 2023
h/o Hemorrhagic Pericardial effusion with Tamponade status post Pericardiocentesis in January 2023
Prior to admission wounds: Left heel pressure ulcer, Left heel unstageable in center, with ring of stage 2 vs 3 surrounding eschar
FULL/SCDs
[2024-03-17 12:35] LABS: Urine Albumin Negative (Neg - Trace); Urine Bilirubin Negative (Negative); Urine Character Clear (Clear); Urine Color Yellow; Urine Glucose Negative (Negative); Urine Ketone Negative (Negative); Urine Leukocyte Trace (Negative); Urine Nitrite Negative (Negative); Urine Occult Blood Negative (Negative); Urine Urobilinogen Negative (Neg - 1+)
--- NOTE | 2024-03-17 12:41 | CON.GI ---
Consultation
-
Date/Time Consultation Requested: 03/17/24
Date/Time Consultation Performed: 03/17/24
Requesting Provider: Valeri Cano
Performing Provider: Cristal Mitchell
Reason for Consultation: Anemia, c/f GIB
Medical History
Chief Complaint / HPI
Chief Complaint: GI bleeding, anemia
History of Present Illness:
Kianna is an 88-year-old female with past medical history of CKD, aortic valve replacement, left bundle branch block following aortic valve replacement, pacemaker, anemia of chronic disease, paroxysmal A-fib on Eliquis, hypothyroidism hemorrhagic
pericardial effusion with tamponade status post pericardiocentesis, sacral decubitus ulcer, hyperlipidemia, history of CVA, history of GI bleeding admitted from home after patient noted to be more lethargic and unresponsive. On arrival patient was
noted to be hypertensive with blood pressures 70s/50s, with large drop in hemoglobin of 7.1, previously 10.6 on 03/06. Most of history obtained from daughter, who is at bedside. Patient gets her labs checked every 2 weeks, hemoglobin has been stable
for the last few months. She was started on eliquis about 6 months ago. She was having black tarry stools last tuesday, which resolved on Tuesday. Her stool was brown on Tuesday, and last BM was yesterday, also brown. Kianna has a history of GI
bleeding, admitted in March 2017 with an acute drop in hemoglobin with associated melena, EGD and colonoscopy with evidence of diverticulosis and internal hemorrhoids, returned a week later with ongoing drops in hemoglobin and continued GI bleeding
with repeat endoscopy again without evidence of active bleeding. She then had a nuclear bleeding scan which showed abnormal radiotracer accumulation over the left mid abdomen with propagation into torturous bowel loops most suggestive of a small
bowel hemorrhage, this was followed by three-vessel mesenteric arteriogram which showed no active bleeding or pseudoaneurysm. She was then transferred to [facility] for a single balloon enteroscopy, which showed a single
angioectasia in the mid jejunum which was successfully treated with APC as well as an area in the mid jejunum which was erythematous and ulcerated, about 1.5 cm but no active bleeding after a hemostatic clip was applied. No recurrent bleeding
following successful treatment with APC and patient was discharged on a PPI. No recurrent bleeding following successful treatment with APC and patient was discharged on a PPI. Patient has not had any recurrent GI bleeding since that time.
-EGD 11/24/2016: Normal esophagus. Evidence of Traci-en-Y gastric bypass.
-Colonoscopy 11/24/2016: Sigmoid diverticulosis. Internal hemorrhoids.
-EGD 04/05/2017, Dr. Fernandes: Evidence of Traci-en-Y gastrojejunostomy. The pouch appeared healthy. Patch to jejunum limb was characterized by healthy-appearing mucosa. The blind loop was also healthy. No blood or inflammation seen anywhere during
the EGD.
-Single balloon enteroscopy (03/2017)�antegrade: Evidence of previous Traci-en-Y gastric bypass was seen, normal gastric pouch. A single angioectasia was seen in the mid jejunum, treated with APC erythema and ulceration of the mucosa with no
evidence of bleeding was found in the mid jejunum, 1 Endo Clip was applied to the mid jejunum. Gifty ink tattoo was applied to the most distal point of intubation in the jejunum.
Past Medical History
Past Medical History: Other (CVA, afib, AVR, sacral decubitus ulcer, GI bleeding, Anemia, pericardia effusion, hypothyroidism)
Past Surgical History: Other (pericardiocentesis, RYGB)
Social History
Tobacco: Non-Smoker
Alcohol: None
Drug: None
Living: With Family
Family History
Family History: Reviewed & Not Pertinent
Allergies / Home Medications
Allergy/AdvReac Type Severity Reaction Status Date / Time
erythromycin base Allergy Unknown Verified 09/21/23 13:20
Penicillins Allergy skin rxn Verified 09/21/23 13:20
after
'shots';Tolerated
cephalosporins,
Amoxicillin
�Medication �Instructions �Recorded
cyanocobalamin (vitamin B-12) 1,000 mcg PO DAILY Supplement 07/25/21
1,000 mcg tablet
oxybutynin chloride 5 mg tablet 5 mg PO BID Urinary issue 04/28/22
calcium carbonate 600 mg-vitamin 1 tab PO DAILY Supplement ##0 02/11/23
D3 10 mcg (400 unit) tablet
(Calcium 600 + D(3))
gabapentin 300 mg capsule 300 mg PO BID Pain 02/11/23
docusate sodium 100 mg capsule 100 mg PO BID Constipation 02/24/23
levothyroxine 150 mcg tablet 150 mcg PO DAILY Thyroid #0 tabs 03/03/23
apixaban 5 mg tablet (Eliquis) 5 mg PO BID 03/17/24
atorvastatin 40 mg tablet 40 mg PO HS 03/17/24
flaxseed oil 1,000 mg capsule 1,000 mg PO HS 03/17/24
furosemide 20 mg tablet 20 mg PO DAILY 03/17/24
omega 9-rtv-zwo-fish oil 1,200 mg 1 cap PO BID 03/17/24
(144 mg-216 mg) capsule (Fish Oil)
sennosides 8.6 mg tablet (senna) 8.6 mg PO HS 03/17/24
therapeutic multivitamin 1 tab PO DAILY 03/17/24
Review of Systems
-
History Source: Patient and Family
All other systems: A 12 pt ROS was Negative except as stated above in HPI
Vital Signs
Temp Pulse Resp BP Pulse Ox
97.7 F 70 14 128/56 100
03/17/24 11:13 03/17/24 11:16 03/17/24 11:16 03/17/24 11:16 03/17/24 11:13
Physical Exam
Exam
GENERAL: chronically-ill appearing, in no acute distress
ABDOMEN: +BS; soft, non-tender and non-distended; no rebound or guarding
RECTAL: brown, heme positive stool
Results
WBC 4.1 10^3/uL (4.8-10.8) L 03/17/24 11:22
Hgb 7.1 g/dL (12.0-16.0) L 03/17/24 11:22
Hct 21.6 % (37.0-47.0) L 03/17/24 11:22
MCV 90.4 fL (81.0-99.0) 03/17/24 11:22
Plt Count 146 10^3/uL (130-400) 03/17/24 11:22
Absolute Neuts (auto) 2.5 10^3/uL (1.4-6.5) 03/17/24 11:22
Sodium 135 mmol/L (135-145) 03/17/24 11:22
Potassium 4.0 mmol/L (3.5-5.1) 03/17/24 11:22
Chloride 105 mmol/L (98-107) 03/17/24 11:22
Carbon Dioxide 27 mmol/L (22-30) 03/17/24 11:22
BUN 47 mg/dl (7-17) H 03/17/24 11:22
Creatinine 1.1 mg/dL (0.6-1.0) H 03/17/24 11:22
Calcium 8.3 mg/dl (8.4-10.2) L 03/17/24 11:22
Total Bilirubin 0.3 mg/dl (0.2-1.3) 03/17/24 11:22
AST 68 U/L (14-36) H 03/17/24 11:22
ALT 56 U/L (0-35) H 03/17/24 11:22
Alkaline Phosphatase 75 U/L (38-126) 03/17/24 11:22
Diagnostic Image Results:
Prior GI Procedures:
EGD:
Colonoscopy:
Assessment / Plan
-
88-year-old female with past medical history of CKD, aortic valve replacement, hx RYGB, left bundle branch block following aortic valve replacement, pacemaker, anemia of chronic disease, paroxysmal A-fib on Eliquis, hypothyroidism hemorrhagic
pericardial effusion with tamponade status post pericardiocentesis, sacral decubitus ulcer, hyperlipidemia, history of CVA, history of GI bleeding admitted with change in mental status and melena with concerns for hemodynamically unstable GI
bleeding.
Anemia, Melena-- c/f UGIB
-hemoglobin drop 10.6 --> 7.1; brown stool on rectal, likely stopped bleeding, (pictures viewed from daughter) of melena, which stopped on Tuesday
-IVF
-blood transfusion-- agree with 2 units
-2 large bore peripheral gauge IVs
-active T&C
-IV iron
-hold eliquis--weigh risks/benefits-- if deemed absolutely necessary, prefer heparin gtt
-please check post-transfusion CBC
-hx of small bowel AVM bleeding requiring transfer to [facility] for small-bowel enteroscopy
-I suspect AVM bleeding is culprit-- had a lengthy discussion with patient and family regarding standard of care, proceeding with endoscopy, however, timing of this depends on clinical stability, as well as ideally once eliquis has been washed out
(48 hours); they are unsure if they want to proceed with endoscopy, but prefer to see how she does over the next 24 hours, then reevaluate, they understand it is possible the EGD will be unrevealing and may need to further evaluate for a small bowel
source
-if she develops active GI bleeding, please obtain STAT bleeding scan in attempts to help localize the source
Data Reviewed
-
Old Records: Reviewed
-
-
Thank you for consultation and allowing me to participate in the patient's care. Please call the business economist GI physician during the after hours with any questions or concerns.
[2024-03-17 12:47] LABS: Urine Bacteria Few (Negative); Urine Red Blood Cell 0-2 /HPF (0-2)
[2024-03-17] MEDS: PROTONIX 100 IV ×2 (13:02→21:28)
--- NOTE | 2024-03-17 17:06 | PTCARENOTE ---
Addendum entered by Alonso Mcmahon RN 03/17/24 17:06:
Pt was rec'd into IMU at approx 15:30. AOx3 with stock worker and deliverer Mi and son Spencer at bedside, assisting to answer admission questions. Pt will receive 2 units PRBCs per orders. Pt oriented to room and plan of care. Call bello in reach, no other
needs at this time.
Original Note:
1st unit blood rec'd and hung at this time.
--- NOTE | 2024-03-17 20:52 | PTCARENOTE ---
First unit PRBC finished infusing without any s/s of reaction. VSS. Afebrile. Slip sent for second unit PRBC.
[2024-03-17] MEDS: DITROPAN 5 MG PO (21:18)
[2024-03-17] MEDS: LIPITOR 40 MG PO (21:18)
[2024-03-17] MEDS: NEURONTIN 300 MG PO (21:18)
[2024-03-18] VITALS (21 sets, daily range): BP systolic 89–174; BP diastolic 48–102; PULSE 75–125; BMI 28.3
--- NOTE | 2024-03-18 00:15 | PTCARENOTE ---
Second unit PRBC finished infusing without issue. VSS. Afebrile. Pt more comfortable not as cold. Granddaughter Mi called floor and given update on pt. Pt currently resting comfortably. Call bello remains within reach. Will continue to monitor.
[2024-03-18] MEDS: NSS 1000 IV ×3 (00:37→13:19)
[2024-03-18] MEDS: NSS IV (00:37)
[2024-03-18 01:58] LABS: Hematocrit 23.7 % (37.0-47.0); Hemoglobin 8.4 g/dL (12.0-16.0); Mean Corp Hgb Conc. 35.4 g/dL (33.0-37.0); Mean Corpuscular Hgb 29.6 pg (27.0-31.0); Mean Corpuscular Volume 83.5 fL (81.0-99.0); Platelet Count 140 10^3/uL (130-400); Red Blood Cell Count 2.84 10^6/uL (4.20-5.40); Red Cell Dist. Width 16.8 % (11.5-14.5); White Blood Cell Count 5.3 10^3/uL (4.8-10.8)
[2024-03-18 02:04] LABS: Blood Urea Nitrogen 52 mg/dl (7-17); Calcium 8.2 mg/dl (8.4-10.2); Carbon Dioxide 25 mmol/L (22-30); Chloride 108 mmol/L (98-107); Estimated Creatinine Clearance 41 ml/min; Glucose 90 mg/dl (70-99); Potassium 4.3 mmol/L (3.5-5.1); Sodium 136 mmol/L (135-145); eGFR > 60.00
[2024-03-18] MEDS: SYNTHROID PO (06:25)
[2024-03-18] MEDS: PROTONIX 100 IV ×2 (07:59→17:03)
[2024-03-18] MEDS: DITROPAN 5 MG PO ×2 (08:00→20:09)
[2024-03-18] MEDS: NEURONTIN 300 MG PO ×2 (08:00→20:09)
[2024-03-18] MEDS: VITAMIN B-12 1000 MCG PO (08:00)
[2024-03-18] MEDS: THERAGRAN 1 TABLET PO (08:01)
--- NOTE | 2024-03-18 08:09 | W.PN.HOSP.TC ---
Today's Communication/Plan
-
see bold
Assessment / Plan
Assessment / Plan
Gen: NAD, AAOx3.
Eyes: EOMI, PERRLA, no scleral icterus.
Neck: supple.
CV: RRR, +S1/S2, no m/r/g.
Resp: CTAB, no rales, wheezes, or rhonchi.
Abd: +BS, soft, NT, ND
Skin: No rashes. 2+ B/L LE lymphedema
Neuro: CN 2-12 intact, non-focal.
Psych: Normal mood and affect.
Syncope due to acute blood loss anemia (on chronic anemia) due to upper gastrointestinal bleeding exacerbated by Eliquis:
-h/o SB AVMs (was transferred to [place] in the past for SB-enteroscopy)
-stop Eliquis (last dose 03/17/24)
-NPO/IVFs/PPI gtt
-Hb improved s/p 2U pRBCs, cont to trend
-GI following
-pt/family unsure if they would want EGD (would need 48 hours eliquis washout)
Other problems:
CKD3b
Chronic, mild transaminitis
Hyperlipidemia: cont statin
h/o symptomatic orthostatic hypotension and chronic hypotension
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
Anemia of chronic disease
Paroxysmal A-fib: Hold Eliquis.
Hypothyroidism: cont Synthroid
h/o Right Distal Femur Fracture s/p Open Reduction Internal Fixation in January 2023
h/o Pneumonia with Parapneumonic Effusion requiring Thoracentesis in January 2023
h/o Hemorrhagic Pericardial effusion with Tamponade status post Pericardiocentesis in January 2023
Prior to admission wounds: Left heel pressure ulcer, Left heel unstageable in center, with ring of stage 2 vs 3 surrounding eschar
FULL/SCDs
Total time spent on today's encounter was 50 minutes which included time spent in counseling the patient/family regarding diagnosis and treatment plan as listed above, goals of care, and symptom management. Case was discussed with nursing staff,
specialists, and care coordinators/case management. All labs and imaging personally reviewed by me. Remainder the time spent in detailed review of previous records, lab data, imaging, and other medical provider documentation.
Anticipated Discharge: 24 - 48 hours
Subjective/Interval History
-
Date of Service: March 18, 2024
No BM overnight. Denies CP/SOB.
Objective Data
-
Labs:
Laboratory Results
03/17/24 03/18/24 03/18/24
20:00 01:37 02:00
WBC Cancelled 5.3
Hgb Cancelled 8.4 L Cancelled
Hct Cancelled 23.7 L Cancelled
Plt Count Cancelled 140
Sodium 136
Potassium 4.3
Chloride 108 H
Carbon Dioxide 25
BUN 52 H
Creatinine 0.9
Glucose 90
Calcium 8.2 L
03/18/24 03/18/24 03/18/24
03:57 08:00 09:57
WBC
Hgb Cancelled Pending Pending
Hct Cancelled Pending Pending
Plt Count
Sodium
Potassium
Chloride
Carbon Dioxide
BUN
Creatinine
Glucose
Calcium
03/18/24
14:00
WBC
Hgb Pending
Hct Pending
Plt Count
Sodium
Potassium
Chloride
Carbon Dioxide
BUN
Creatinine
Glucose
Calcium
Vital Signs:
Vital Signs
Temp Pulse Resp BP Pulse Ox
98.1 F 70 15 137/61 96
03/18/24 07:25 03/18/24 06:15 03/18/24 06:15 03/18/24 06:00 03/18/24 06:15
I&O
03/17/24 03/18/24 03/19/24
06:59 06:59 06:59
Intake Total 750 / 750
Output Total 1400 / 1400
Balance -650 / -650
[2024-03-18] MEDS: OSCAL 500 + D 500 MG PO (08:13)
--- NOTE | 2024-03-18 09:07 | W.PN.GI.CBS2 ---
Today's Communication / Plan
-
Monitor H&H; obtain bleeding scan if active bleeding; consent family for EGD tomorrow. Start IV iron
Assessment / Plan
-
88-year-old female with past medical history of CKD, aortic valve replacement, hx RYGB, left bundle branch block following aortic valve replacement, pacemaker, anemia of chronic disease, paroxysmal A-fib on Eliquis, hypothyroidism hemorrhagic
pericardial effusion with tamponade status post pericardiocentesis, sacral decubitus ulcer, hyperlipidemia, history of CVA, history of GI bleeding admitted with change in mental status and melena with concerns for hemodynamically unstable GI
bleeding.
Anemia, Melena-- c/f UGIB
-hemoglobin drop 10.6 --> 7.1; brown stool on rectal, likely stopped bleeding, (pictures viewed from daughter) of melena, which stopped on Tuesday
-repeat Hgb following 2units of PRBC was 8.4, repeat AM labs pending, no BMs overnight
-IVF
-2 large bore peripheral gauge IVs
-active T&C
-IV iron
-hold eliquis--weigh risks/benefits-- if deemed absolutely necessary, prefer heparin gtt
-hx of small bowel AVM bleeding requiring transfer to [facility] for small-bowel enteroscopy
-I suspect AVM bleeding is culprit-- had a lengthy discussion with patient and family (granddaughter and son) regarding standard of care, proceeding with endoscopy, however, timing of this depends on clinical stability, as well as ideally once
eliquis has been washed out (48 hours); will call family again today, recommend proceeding with endoscopy tomorrow
-if she develops active GI bleeding, please obtain STAT bleeding scan in attempts to help localize the source
Subjective
Subjective
Date of Service: March 18, 2024
Patient seen in follow-up, reports feeling well, asking when she can go home. No bowel movements overnight. Hemoglobin was 8.4 yesterday from 7.1, she was transfused with 2 units of PRBC, a.m. labs pending.
Objective
Data Reviewed
Laboratory Data:
Laboratory Results
03/18/24 01:37
Laboratory Results
Total Bilirubin 0.3 mg/dl (0.2-1.3) 03/17/24 11:22
AST 68 U/L (14-36) H 03/17/24 11:22
ALT 56 U/L (0-35) H 03/17/24 11:22
Alkaline Phosphatase 75 U/L (38-126) 03/17/24 11:22
Vital Signs and I&O:
Vital Signs
Temp Pulse Resp BP Pulse Ox
98.1 F 72 16 149/79 95
03/18/24 07:25 03/18/24 08:00 03/18/24 08:00 03/18/24 08:00 03/18/24 08:00
I&O
03/17/24 03/18/24 03/19/24
06:59 06:59 06:59
Intake Total 750 / 750
Output Total 1400 / 1400
Balance -650 / -650
Physical Exam
Physical Exam
GENERAL: In no acute distress, appears comfortable; chronically-ill appearing
ABDOMEN: +BS; soft, non-tender and non-distended; no rebound or guarding
[2024-03-18 09:41] LABS: Hematocrit 24.6 % (37.0-47.0); Hemoglobin 8.4 g/dL (12.0-16.0)
--- NOTE | 2024-03-18 11:18 | PTCARENOTE ---
Pt rec'd this am from awake overnight counselor RN, AOx3, VSS, no complaints. Labs drawn and sent. Hgb stable, no BMs overnight. Remains NPO with sips and meds. Plan discussed with GI MD, will poss go for EGD in am. Pt fully washed, Q2T continue. Family visiting
at bedside, safe environment maintained.
[2024-03-18] MEDS: FERRLECIT 110 MG IV (13:19)
[2024-03-18 14:31] LABS: Hematocrit 22.2 % (37.0-47.0); Hemoglobin 7.8 g/dL (12.0-16.0)
--- NOTE | 2024-03-18 16:01 | CHAP ---
Visited Ms. Martinez at 10:00. She said she was doing okay. Offered a prayer for her and brought a prayer blanket, as she was cold.
--- NOTE | 2024-03-18 16:51 | PTCARENOTE ---
Orthos attempted while trying to get to bedside commode however pt became very weak upon standing, tachy to 130s (alarmed VTach on tele) and BP dropped to 89/77. ECG obtained, confirmed AV Paced rhythm. Pt assisted back to bed. Will notify attending.
--- NOTE | 2024-03-18 17:19 | W.PN.UPDATE ---
Update Note
Progress Note Update
As per nursing patient had an urge to have a bowel movement and then became tachycardic and weak. Blood pressure was 89/77 when the patient was upright. Patient reports that she requires stool softeners to have a bowel movement. MiraLAX ordered.
As hemoglobin is slightly trended down and patient was orthostatic we will order another unit of packed red blood cells. Should the patient have any evidence of active bleeding she will need a stat nuclear bleeding scan.
--- NOTE | 2024-03-18 18:11 | PTCARENOTE ---
1 unit PRBCs ordered per Dr. El. Infusing now.
[2024-03-18] MEDS: MIRALAX 17 GRAMS PO (18:14)
[2024-03-18] MEDS: SENOKOT 8.6 MG PO (20:09)
[2024-03-18] MEDS: MELATONIN 5 MG PO (20:09)
[2024-03-18] MEDS: LIPITOR 40 MG PO (20:09)
--- NOTE | 2024-03-18 20:56 | CON.CAR ---
Consultation
Consultation Request
Date/Time Consultation Requested: 03/17/2024 1310
Date/Time Consultation Performed: 03/18/2024 1215
Requesting Provider: Royer El MD
Performing Provider: Palomo Bustillo DO
Reason for Consultation: PAF, GIB on Eliquis
Medical History
-
Chief Complaint: Syncope
History of Present Illness:
Patient is a pleasant 88-year-old female with a past medical history significant for paroxysmal atrial fibrillation, recurrent syncope, severe status post TAVR, recurrent CVA, upon a ranch block, hypercholesterolemia, pericardial effusion
pericardiocentesis 2022, anemia, symptomatic bradycardia with left bundle branch block status post pacemaker, symptomatic orthostatic hypotension with chronic hypotension, CKD 3B initially presented due to fatigue and syncope. EMS had arrived at
home was noted to have blood pressure 70s over 50s which improved with IV fluids. Patient reports melena for past few days prior to admission. Patient noted to have downtrending hemoglobin concerning for GI bleed for which GI has been consulted.
In discussion with patient, patient reports that she otherwise feels well currently. Denies chest pain, shortness of breath, palpitations, PND, orthopnea, edema, or weakness. She does note some dizziness with position changes. Initial hemoglobin
noted to be 7.1 (previous 10.6 roughly 10 days prior). Patient given 2 units of packed red blood cells and hemoglobin has continued to trend downward 7.8 at most recent check. Eliquis is been placed on hold. Patient has possible planned
EGD/colonoscopy by GI service on 03/19/2024.
Past Medical History
Past Medical History: Other (see hpi)
Past Surgical History: Other (gastric bypass 2005, DTH 2016, breast bx, IVCF, TKR , TAVR 06/2022, pericardiocentesis 2022)
Social History
Tobacco: Non-Smoker
Alcohol: None
Drug: None
Living: With Family
Family History
Family History: Cancer and Hypertension
Allergies / Home Medications
Allergy/AdvReac Type Severity Reaction Status Date / Time
erythromycin base Allergy Unknown Verified 09/21/23 13:20
Penicillins Allergy skin rxn Verified 09/21/23 13:20
after
'shots';Tolerated
cephalosporins,
Amoxicillin
�Medication �Instructions �Recorded �Confirmed �Type
cyanocobalamin (vitamin B-12) 1,000 mcg PO DAILY Supplement 07/25/21 03/17/24 History
1,000 mcg tablet
oxybutynin chloride 5 mg tablet 5 mg PO BID Urinary issue 04/28/22 03/17/24 History
calcium carbonate 600 mg-vitamin 1 tab PO DAILY Supplement ##0 02/11/23 03/17/24 History
D3 10 mcg (400 unit) tablet
(Calcium 600 + D(3))
gabapentin 300 mg capsule 300 mg PO BID Pain 02/11/23 03/17/24 History
docusate sodium 100 mg capsule 100 mg PO BID Constipation 02/24/23 03/17/24 History
levothyroxine 150 mcg tablet 150 mcg PO DAILY Thyroid #0 tabs 03/03/23 03/17/24 Rx
apixaban 5 mg tablet (Eliquis) 5 mg PO BID Blood Clot 03/17/24 03/17/24 History
Prevention/Tx
atorvastatin 40 mg tablet 40 mg PO HS High Cholesterol 03/17/24 03/17/24 History
flaxseed oil 1,000 mg capsule 1,000 mg PO HS Supplement 03/17/24 03/17/24 History
furosemide 20 mg tablet 20 mg PO DAILY Fluid 03/17/24 03/17/24 History
Retention/Swelling
omega 0-tla-prc-fish oil 1,200 mg 1 cap PO BID Supplement 03/17/24 03/17/24 History
(144 mg-216 mg) capsule (Fish Oil)
sennosides 8.6 mg tablet (senna) 8.6 mg PO HS Constipation 03/17/24 03/17/24 History
therapeutic multivitamin 1 tab PO DAILY Supplement 03/17/24 03/17/24 History
Review of Systems
-
History Source: Patient and Family
All other systems: Negative unless noted
Constitutional: Fatigue
EENT: No Symptoms
Respiratory: No Symptoms
Cardiac: Syncope
Abdomen/GI: Abdominal Pain and Black Stools
: No Symptoms
Musculoskeletal: No Symptoms
Skin: No Symptoms
Neurological: No Symptoms
Endocrine: No Symptoms
Hematologic/Lymphatic: No Symptoms
Physical Exam
Vital Signs
Temp Pulse Resp BP Pulse Ox
99.0 F 70 19 155/76 96
03/18/24 19:35 03/18/24 18:24 03/18/24 18:24 03/18/24 18:24 03/18/24 18:24
Lab Results
03/18/24 14:20
03/18/24 01:37
Physical Exam
General: No Apparent Distress and Comfortable
HEENT: Normocephalic, Anicteric and Moist Mucous Membranes
Respiratory: Clear and Non Labored Respirations
Cardiac: S1/S2, Regular Rhythm and Other (no murmur, rub or gallop)
Breast: Deferred by me
GI: Soft, Non Tender, Non Distended and Normal Bowel Sounds
Rectal: Deferred by Provider
Musculoskeletal: No Clubbing, No Cyanosis and Edema (chronic BL LE 2+ lymphedema)
Skin: Warm and Dry
Neuro: Awake, Alert and Oriented
Psych: Calm
Impression / Plan
-
PCP:Family Physician:� Dima Maldonado
Senior Field Service Engineer: Dr. Sales
Impression:
Syncope, likely due to blood loss anemia with chronic medical conditions
GIB, acute
- Hbg 7.1 on admission (10 roughly 10 days prior)
- planned intervention/evaluation by GI this admission
History of Syncope
- Readmitted 04/17/2023 with syncope after getting out of car shortly after discharge 04/16/2023
- Presented 04/11/2023 with syncope/unresponsive episode while in the shower
Orthostatic hypotension-symptomatic
COVID+ 04/19/2023
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
LBBB following TAVR
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
s/p DC Murphy PPM placement 03/01/23Pericardial effusion with tamponade
status post pericardiocentesis 02/11/2023 for 650 mL of bloody fluid, drain removed 02/13/2023
Paroxysmal atrial fibrillation
- on Eliquis chronically, currently on hold
Right distal periprosthetic femoral fracture 02/11/23, for ORIF 02/16/2023
CVA 08/11
Obstructive sleep apnea
Chronic Lymphedema
Hypertension
Dyslipidemia
Morbid obesity/gastric bypass 2005
GI bleeding, gastric ulcer 2016, transfused 6 units of packed red blood cells, transferred to [facility]
Chronic anemia with transfusion 02/24/2023
IVC filter was prophylactically placed at the time of her gastric bypass
Bilateral TKA
Spinal stenosis/peripheral neuropathy
Ambulatory dysfunction
UTIs
Echocardiogram 11/15/2022: Ejection fraction 50 to 55%, status post TAVR mean gradient of 12 mmHg
ECHO 02/12/23:�Large pericardial effusion with cardiac tamponade.� LVEF estimated at 45% with no focal wall motion abnormality.� Echocardiogram obtained as a follow-up with resolution of pericardial effusion and pericardial tamponade then
demonstrates normal LV systolic function with LVEF estimated at approximately 55%.� Stable TAVR gradients
Echo February 14 2023:�EF 55% with mild LVH, AVR with peak/mean gradients of 30/13 mmHg, mil to mod TR with PASP 29 mmHg, small pericardial effusion without hemodynamic compromise.
Echo 02/21/23:�EF 55%, trivial pericardial effusion
ECHO 04/12/23: EF 55-60%, mild MR, mild TR, trace pericardial effusion, no significant change compared to prior
Recommendations:
- Hold Eliquis in the setting of possible GIB/acute blood loss anemia; patient currently AP sequential pacing; prior reported AF burden low; no recent CV or ablation; would resume when able pending results from GI; additional thoughtful discussion
recommended regarding benefits/risks associated with OAC for this patient and her frailty
- 2D echocardiogram given history of significant pericardial effusion, VHD, and syncope
- Monitor on telemetry
- Gentle diuresis with transfusions; monitor renal function and weights
- Will follow with you
d/w family at bedside, nursing
Data Reviewed
-
EKG: Tracing Personally Visualized and interpreted
Medical Tests (Nuc Med, Echo etc): Report Reviewed by me
Labs: Labs Reviewed by me
Old Records: Reviewed
Total Time Spent with Patient (in minutes): 55
--- NOTE | 2024-03-18 22:30 | PTCARENOTE ---
Pt received at beginning of shift resting in bed. Unit PRBC infusing. Pt without issues of s/s reactions. Unit PRBC finished infusing at approx 2114. During this time pt c/o feeling like she had to have a bm, feeling intense pressure. On assessment
pt had not had any bm in attends. She denied any abdominal pain or discomfort. Pt requesting this RN disimpact her. Pt informed that would not happen since we do not know where her bleeding is and it would not be safe. Apparently at home her
granddaughter disimpacts pt on a daily basis. Pt became very upset and started thrashing about in her bed appearing to cry but without tears. Pt stated she wanted to go home and attempted to get oob while blood infusing. Lily ELIAS on floor for
another pt made aware and spoke with pt with the same result. Pt stated she wanted her son here and became upset again when her son could not come up for approx 1 hr stating 'it doesn't take that long to get her.' Pt requested something to make her
sleep. Order entered for Senokot and Melatonin which pt received. Was turned to her side and was comfortable. Son arrived at approx 2100 but pt sleepy and left after approx 1.5hrs. Protonix gtt and IVF's infusing as ordered. Continues on clears till
the am. Purewick in place draining large amount clear yellow urine. Rest of assessment as documented. Call bello remains within reach. Will continue to monitor.
[2024-03-19] VITALS (21 sets, daily range): BP systolic 82–142; BP diastolic 52–88; PULSE 70–72; O2SAT 95–97; BMI 28.8
[2024-03-19] MEDS: NSS 1000 IV ×2 (02:07→10:43)
[2024-03-19] MEDS: PROTONIX 100 IV (02:07)
[2024-03-19 04:59] LABS: Hematocrit 21.8 % (37.0-47.0); Hemoglobin 7.5 g/dL (12.0-16.0); Mean Corp Hgb Conc. 34.4 g/dL (33.0-37.0); Mean Corpuscular Hgb 29.2 pg (27.0-31.0); Mean Corpuscular Volume 84.8 fL (81.0-99.0); Mean Platelet Volume 9.9 fL (7.4-10.4); Platelet Count 132 10^3/uL (130-400); Red Blood Cell Count 2.57 10^6/uL (4.20-5.40); Red Cell Dist. Width 16.9 % (11.5-14.5); White Blood Cell Count 5.3 10^3/uL (4.8-10.8)
[2024-03-19] MEDS: SYNTHROID PO (05:16)
[2024-03-19 05:21] LABS: Blood Urea Nitrogen 61 mg/dl (7-17); Calcium 7.8 mg/dl (8.4-10.2); Carbon Dioxide 23 mmol/L (22-30); Chloride 113 mmol/L (98-107); Estimated Creatinine Clearance 40 ml/min; Glucose 83 mg/dl (70-99); Sodium 137 mmol/L (135-145); eGFR > 60.00
--- NOTE | 2024-03-19 06:09 | PTCARENOTE ---
Pt able to sleep most of night after receiving Melatonin. VSS. Afebrile. MORTAR MAKER paced/PVCs on CM. IVF/Protonix gtt continue infusing. AM Hgb 7.5 after receiving one unit PRBC last evening - previous Hgb 7.8. No bleeding events overnight. Lily ELIAS
TT'd and updated on this am's Hgb after infusion last evening and that pt is for EGD today. Waiting for response back. Pt remained on bedrest. Maintained on Q2hr turns. Call bello remains within reach. Will continue to monitor.
--- NOTE | 2024-03-19 08:29 | W.PN.CARDCBS ---
Today's Communication / Plan
-
Cont to hold Eliquis given acute GIB with acute blood loss anemia.
She remains AV paced. Reported aFib burden has been low in the past.
Eventual resume anticoagulation once ok with surgery.
Given recurrent GI bleed, could consider eval for Watchman as outpt.
Echo pending.
Continue to transfuse as necessary. Monitor H/H. Hb coming down. AVM suspected per GI.
EGD pending. GI following.
Consider gentle diuresis IV lasix 20 mg between units.
Impression / Plan
-
.
PCP:Family Physician:� Dima Maldonado
Spinner Frame: Dr. Sales
Impression:
Syncope, likely due to blood loss anemia with chronic medical conditions
GIB, acute, Hbg 7.1 on admission (10 roughly 10 days prior)
History of Syncope
- Readmitted 04/17/2023 with syncope after getting out of car shortly after discharge 04/16/2023
- Presented 04/11/2023 with syncope/unresponsive episode while in the shower
Orthostatic hypotension-symptomatic
COVID+ 04/19/2023
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
LBBB following TAVR
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
s/p DC Murphy PPM placement 03/01/23Pericardial effusion with tamponade
status post pericardiocentesis 02/11/2023 for 650 mL of bloody fluid, drain removed 02/13/2023
Paroxysmal atrial fibrillation, on Eliquis chronically, currently on hold
Right distal periprosthetic femoral fracture 02/11/23, for ORIF 02/16/2023
CVA 08/11
Obstructive sleep apnea
Chronic Lymphedema
Hypertension
Dyslipidemia
Morbid obesity/gastric bypass 2005
Hx GI bleeding, gastric ulcer 2016, transfused 6 units of packed red blood cells, transferred to [facility]
Chronic anemia with transfusion 02/24/2023
IVC filter was prophylactically placed at the time of her gastric bypass
Bilateral TKA
Spinal stenosis/peripheral neuropathy
Ambulatory dysfunction
UTIs
Echo 11/15/2022: Ejection fraction 50 to 55%, status post TAVR mean gradient of 12 mmHg
Echo 02/12/23:�Large pericardial effusion with cardiac tamponade.� LVEF estimated at 45% with no focal wall motion abnormality.� Echocardiogram obtained as a follow-up with resolution of pericardial effusion and pericardial tamponade then
demonstrates normal LV systolic function with LVEF estimated at approximately 55%.� Stable TAVR gradients
Echo February 14 2023:�EF 55% with mild LVH, AVR with peak/mean gradients of 30/13 mmHg, mil to mod TR with PASP 29 mmHg, small pericardial effusion without hemodynamic compromise.
Echo 02/21/23:�EF 55%, trivial pericardial effusion
ECHO 04/12/23: EF 55-60%, mild MR, mild TR, trace pericardial effusion, no significant change compared to prior
Plan:
Cont to hold Eliquis given acute GIB with acute blood loss anemia.
She remains AV paced. Reported aFib burden has been low in the past.
Eventual resume anticoagulation once ok with surgery.
Given recurrent GI bleed, could consider eval for Watchman as outpt.
Echo pending.
Continue to transfuse as necessary. Monitor H/H. Hb coming down. AVM suspected per GI.
EGD pending. GI following.
Consider gentle diuresis IV lasix 20 mg between units.
Discussed with family at bedside.
HPI: Patient is a pleasant 88-year-old female with a past medical history significant for paroxysmal atrial fibrillation, recurrent syncope, severe status post TAVR, recurrent CVA, upon a ranch block, hypercholesterolemia, pericardial effusion
pericardiocentesis 2022, anemia, symptomatic bradycardia with left bundle branch block status post pacemaker, symptomatic orthostatic hypotension with chronic hypotension, CKD 3B initially presented due to fatigue and syncope. EMS had arrived at
home was noted to have blood pressure 70s over 50s which improved with IV fluids. Patient reports melena for past few days prior to admission. Patient noted to have downtrending hemoglobin concerning for GI bleed for which GI has been consulted.
In discussion with patient, patient reports that she otherwise feels well currently. Denies chest pain, shortness of breath, palpitations, PND, orthopnea, edema, or weakness. She does note some dizziness with position changes. Initial hemoglobin
noted to be 7.1 (previous 10.6 roughly 10 days prior). Patient given 2 units of packed red blood cells and hemoglobin has continued to trend downward 7.8 at most recent check. Eliquis is been placed on hold. Patient has possible planned
EGD/colonoscopy by GI service on 03/19/2024.
Progress Note - Spinner Frame
Subjective
Date of Service: March 19, 2024
Pt seen and examined. No cp or dyspnea
Objective
Labs:
03/19/24 04:37
03/19/24 04:37
Labs
Hgb 7.5 g/dL (12.0-16.0) L 03/19/24 04:37
Hct 21.8 % (37.0-47.0) L 03/19/24 04:37
Plt Count 132 10^3/uL (130-400) 03/19/24 04:37
Sodium 137 mmol/L (135-145) 03/19/24 04:37
Potassium 4.0 mmol/L (3.5-5.1) 03/19/24 04:37
BUN 61 mg/dl (7-17) H 03/19/24 04:37
Creatinine 0.9 mg/dL (0.6-1.0) 03/19/24 04:37
Glucose 83 mg/dl (70-99) 03/19/24 04:37
Vital Signs and I&O:
Vital Signs
Temp Pulse Resp BP Pulse Ox
98.0 F 70 18 126/57 93
03/19/24 07:17 03/19/24 06:00 03/19/24 06:00 03/19/24 04:00 03/19/24 06:00
Vital Signs
Temp Pulse Resp BP Pulse Ox
98.0 F 70 18 126/57 93
03/19/24 07:17 03/19/24 06:00 03/19/24 06:00 03/19/24 04:00 03/19/24 06:00
Intake & Output
03/17/24 03/18/24 03/19/24 03/20/24
06:59 06:59 06:59 06:59
Intake Total 1000 / 1000 3585 / 3585
Output Total 1400 / 1400 1850 / 1850
Balance -400 / -400 1735 / 1735
Physical Exam
Physical Exam
General: No acute distress, AAOX3
Neck: Negative JVD
Heart: Regular, Negative S3 positive S1/S2, Negative S4, No murmur
Lungs: CTA b/l, negative wheezes/rales/rhonchi
Abd: Positive BS, NT/ND, neg rebound/rigidity/guarding
Ext: Negative cyanosis/clubbing. b/l lymphedema
Neuro: nonfocal
--- NOTE | 2024-03-19 08:40 | VNURNOTE ---
Chart reviewed. Patient is current with [facility]. Will continue to follow hospital course.
--- NOTE | 2024-03-19 08:55 | W.PN.HOSP.TC ---
Today's Communication/Plan
-
Monitor Hb, restart a/c
Assessment / Plan
Assessment / Plan
Gen: NAD, AAOx3.
Eyes: EOMI, PERRLA, no scleral icterus.
Neck: supple.
CV: RRR, +S1/S2, no m/r/g.
Resp: CTAB, no rales, wheezes, or rhonchi.
Abd: +BS, soft, NT, ND
Skin: No rashes. 2+ B/L LE lymphedema
Neuro: CN 2-12 intact, non-focal.
Psych: Normal mood and affect.
A/P:
Syncope due to acute blood loss anemia (on chronic anemia) due to upper gastrointestinal bleeding exacerbated by Eliquis:
-h/o SB AVMs (was transferred to [place] in the past for SB-enteroscopy)
-stop Eliquis (last dose 03/17/24)
-Stop IV fluids, start regular diet, stop IV PPI drip and changed to oral Protonix daily, restart Eliquis tonight--> discussed with GI. Discussed with family at bedside.
-Hb improved s/p 2U pRBCs, cont to trend
-GI following
EGD:
Impression: - Normal esophagus.
- Traci-en-Y gastrojejunostomy with gastrojejunal
anastomosis characterized by healthy appearing mucosa.
- No specimens collected.
Recommendation: - [facility] patient to [facility] for ongoing care.
- Monitor HH. Okay to resume eliquis. If hemoglobin
remains stable after resuming AC, recommend outpatient
VCE. If evidence of active GI bleeding, please obtain
stat CTA.
Other problems:
CKD3b
Chronic, mild transaminitis
Hyperlipidemia: cont statin
h/o symptomatic orthostatic hypotension and chronic hypotension
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
Anemia of chronic disease
Paroxysmal A-fib: Hold Eliquis.
Hypothyroidism: cont Synthroid
h/o Right Distal Femur Fracture s/p Open Reduction Internal Fixation in January 2023
h/o Pneumonia with Parapneumonic Effusion requiring Thoracentesis in January 2023
h/o Hemorrhagic Pericardial effusion with Tamponade status post Pericardiocentesis in January 2023
Prior to admission wounds: Left heel pressure ulcer, Left heel unstageable in center, with ring of stage 2 vs 3 surrounding eschar
FULL/SCDs
Total time spent on today's encounter was 50 minutes which included time spent in counseling the patient/family regarding diagnosis and treatment plan as listed above, goals of care, and symptom management. Case was discussed with nursing staff,
specialists, and care coordinators/case management. All labs and imaging personally reviewed by me. Remainder the time spent in detailed review of previous records, lab data, imaging, and other medical provider documentation.
Anticipated Discharge: 24 - 48 hours
Subjective/Interval History
-
Date of Service: March 19, 2024
Denies hematemesis. Reports dark stools. No chest pain or shortness of breath
Objective Data
-
Labs:
Laboratory Results
03/19/24
04:37
WBC 5.3
Hgb 7.5 L
Hct 21.8 L
Plt Count 132
Sodium 137
Potassium 4.0
Chloride 113 H
Carbon Dioxide 23
BUN 61 H
Creatinine 0.9
Glucose 83
Calcium 7.8 L
Vital Signs:
Vital Signs
Temp Pulse Resp BP Pulse Ox
98.0 F 70 18 126/57 93
03/19/24 07:17 03/19/24 06:00 03/19/24 06:00 03/19/24 04:00 03/19/24 06:00
I&O
03/18/24 03/19/24 03/20/24
06:59 06:59 06:59
Intake Total 1000 / 1000 3585 / 3585
Output Total 1400 / 1400 1850 / 1850
Balance -400 / -400 1735 / 1735
--- NOTE | 2024-03-19 10:54 | CM ---
Cm met with pt and granddtr/Mi bedside
Pt resides with her granddtr and son/Singh (granddtr's uncle) in a 1SH with ramp entrance
Son works full-time and granddtr is full-time caregiver for pt
Pt is independent with ambulation and transfers with use of a WW
Granddtr assists with bathin tasks, pt is AxO 3x
Pt has a WC, WW, SPC, coomode, and tubseat
She sis current with [facility]
No financial insecurities
PCP- Dima Maldonado
Rx- [facility] Rx
TT/Dr Means- PT/OT requested as pt noted to be a 2 person nursing assist
Discharge Disposition- anticipate home with [facility], watch for higher needs
--- NOTE | 2024-03-19 12:48 | PTCARENOTE ---
Patient off unit to GI lab for EGD.
[2024-03-19] MEDS: DITROPAN 5 MG PO ×2 (14:04→21:10)
[2024-03-19] MEDS: NEURONTIN 300 MG PO ×2 (14:04→21:10)
[2024-03-19] MEDS: SYNTHROID 150 MCG PO (14:04)
[2024-03-19] MEDS: THERAGRAN PO (14:05)
[2024-03-19] MEDS: VITAMIN B-12 PO (14:05)
[2024-03-19] MEDS: OSCAL 500 + D PO (14:05)
[2024-03-19] MEDS: MIRALAX PO (14:05)
[2024-03-19] MEDS: LASIX 20 MG PO (15:06)
[2024-03-19] MEDS: FERRLECIT 110 MG IV (15:06)
--- NOTE | 2024-03-19 15:27 | PTCARENOTE ---
Patient on commode and while trying to get her back to bed patient unable to assist and we guided to the floor. Roselyn lift to get patient back to bed. Assistance of 6 staff members to get patient back to bed. Vital signs stable.
[2024-03-19] MEDS: PROTONIX IV (18:00)
--- NOTE | 2024-03-19 18:45 | PTCARENOTE ---
Patient resting comfortably in bed. Family in room at bedside. Patient tolerated dinner. No signs of rectal bleeding. Vital signs stable.
[2024-03-19] MEDS: ELIQUIS 5 MG PO (21:10)
[2024-03-19] MEDS: LIPITOR 40 MG PO (21:10)
[2024-03-20] VITALS (25 sets, daily range): BP systolic 82–109; BP diastolic 39–69; BMI 28.6
--- NOTE | 2024-03-20 01:33 | PTCARENOTE ---
Pt received from previous shift in bed w/family at bedside. AAOx3/forgetful. Telemetry = occasional A pacing w/BBC. Full physical assessment documented (refer to worklist). Purewick external catheter changed and maintained. Sacral dressing
w/drainage, packed wound noted. Sacral silicone border foam placed, WOC consult. Pt reports 'Mi takes care of wound' also reports being treated outpatient at wound center. #22 RW and #20 RAC INTs patent. Medications administered whole in
applesauce. Turned and positioned for comfort. Call bello w/in reach. Plan of care ongoing
--- NOTE | 2024-03-20 02:35 | PTCARENOTE ---
BPs running soft. 85/40 HR 84. PRIMER WATERPROOFING MACHINE ADJUSTER covering house contacted, electronic orders received for IV bolus (refer to MAR). Will evaluate for effectiveness.
[2024-03-20] MEDS: NSS 500 IV (02:40)
--- NOTE | 2024-03-20 03:11 | PTCARENOTE ---
Pt occasionally desats into 80s [address] asleep. Place on 3L midflow, sats >95%. CLINICAL DOCUMENTATION MANAGER covering house contacted for order.
[2024-03-20 05:10] LABS: Hematocrit 21.1 % (37.0-47.0); Hemoglobin 7.1 g/dL (12.0-16.0); Mean Corp Hgb Conc. 33.6 g/dL (33.0-37.0); Mean Corpuscular Hgb 30.2 pg (27.0-31.0); Mean Corpuscular Volume 89.8 fL (81.0-99.0); Mean Platelet Volume 9.9 fL (7.4-10.4); Platelet Count 118 10^3/uL (130-400); Red Blood Cell Count 2.35 10^6/uL (4.20-5.40); Red Cell Dist. Width 17.2 % (11.5-14.5); White Blood Cell Count 11.4 10^3/uL (4.8-10.8)
[2024-03-20 05:12] LABS: Blood Urea Nitrogen 50 mg/dl (7-17); Calcium 7.6 mg/dl (8.4-10.2); Carbon Dioxide 21 mmol/L (22-30); Chloride 113 mmol/L (98-107); Estimated Creatinine Clearance 37 ml/min; Glucose 105 mg/dl (70-99); Potassium 3.8 mmol/L (3.5-5.1); Sodium 136 mmol/L (135-145); eGFR 54.53
--- NOTE | 2024-03-20 06:01 | W.PN.UPDATE ---
Update Note
Progress Note Update
Patient continues with hypotension after NS IVF bolus. Hgb this am 7.1. One Unit PRBCs ordered. No sign of active GI bleed.
--- NOTE | 2024-03-20 06:05 | PTCARENOTE ---
Hgb 7.1, communicated to [facility] house. Electronic order to transfuse on unit PRBCs. Release sent to blood bank.
--- NOTE | 2024-03-20 08:33 | W.PN.CARDCBS ---
Today's Communication / Plan
-
EGD without acute findings. Eliquis resumed by primary service as ok with GI.
Receiving transfusion for anemia, Hb 7.1 March 20. Cont to monitor H/H closely. GI would consider stat CTA with recurrent bleeding. Transfuse as needed.
Receiving lasix 20 mg daily. Consider Lasix 20 mg IV if requiring multiple units.
Remains AV paced. Reported aFib burden has been low in the past.
Given recurrent GI bleed, could consider eval for Watchman as outpt.
Echo March 19 2024: EF 55-60% mild LVH, mild MR, well-seated TAVR, Aquino Elvis 23. Peak/mean gradients are 25/11mmHg. Mild AR, mild TR with PASP 25-30mmHg
Echo reviewed with pt.
Impression / Plan
-
.
PCP:Family Physician:� Dima Maldonado
Tractor Trailer Technician: Dr. Sales
Impression:
Syncope, likely due to blood loss anemia with chronic medical conditions
GIB, acute, Hbg 7.1 on admission (10 roughly 10 days prior)
History of Syncope
- Readmitted 04/17/2023 with syncope after getting out of car shortly after discharge 04/16/2023
- Presented 04/11/2023 with syncope/unresponsive episode while in the shower
Orthostatic hypotension-symptomatic
COVID+ 04/19/2023
TAVR 23mm Aquino ELVIS 3 on 07/01/22
LBBB following TAVR
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
s/p DC Murphy PPM placement 03/01/23Pericardial effusion with tamponade
status post pericardiocentesis 02/11/2023 for 650 mL of bloody fluid, drain removed 02/13/2023
Paroxysmal atrial fibrillation, on Eliquis chronically, currently on hold
Right distal periprosthetic femoral fracture 02/11/23, for ORIF 02/16/2023
CVA 08/11
Obstructive sleep apnea
Chronic Lymphedema
Hypertension
Dyslipidemia
Morbid obesity/gastric bypass 2005
Hx GI bleeding, gastric ulcer 2016, transfused 6 units of packed red blood cells, transferred to [facility]
Chronic anemia with transfusion 02/24/2023
IVC filter was prophylactically placed at the time of her gastric bypass
Bilateral TKA
Spinal stenosis/peripheral neuropathy
Ambulatory dysfunction
UTIs
Echo 11/15/2022: Ejection fraction 50 to 55%, status post TAVR mean gradient of 12 mmHg
Echo 02/12/23:�Large pericardial effusion with cardiac tamponade.� LVEF estimated at 45% with no focal wall motion abnormality.� Echocardiogram obtained as a follow-up with resolution of pericardial effusion and pericardial tamponade then
demonstrates normal LV systolic function with LVEF estimated at approximately 55%.� Stable TAVR gradients
Echo February 14 2023:�EF 55% with mild LVH, AVR with peak/mean gradients of 30/13 mmHg, mil to mod TR with PASP 29 mmHg, small pericardial effusion without hemodynamic compromise.
Echo 02/21/23:�EF 55%, trivial pericardial effusion
ECHO 04/12/23: EF 55-60%, mild MR, mild TR, trace pericardial effusion, no significant change compared to prior
EGD:
Impression: - Normal esophagus.
- Traci-en-Y gastrojejunostomy with gastrojejunal
anastomosis characterized by healthy appearing mucosa.
- No specimens collected.
Recommendation: - Monitor HH. Okay to resume eliquis. If hemoglobin
remains stable after resuming AC, recommend outpatient
VCE. If evidence of active GI bleeding, please obtain
stat CTA.
Plan:
EGD without acute findings. Eliquis resumed by primary service as ok with GI.
Receiving transfusion for anemia, Hb 7.1 March 20. Cont to monitor H/H closely. GI would consider stat CTA with recurrent bleeding. Transfuse as needed. Receiving lasix 20 mg daily. Consider Lasix 20 mg IV if requiring multiple units.
Remains AV paced. Reported aFib burden has been low in the past.
Given recurrent GI bleed, could consider eval for Watchman as outpt.
Echo March 19 2024: EF 55-60% mild LVH, mild MR, well-seated TAVR, Aquino Elvis 23. Peak/mean gradients are 25/11mmHg. Mild AR, mild TR with PASP 25-30mmHg
Echo reviewed with pt.
Discussed with family last 24 hrs.
HPI: Patient is a pleasant 88-year-old female with a past medical history significant for paroxysmal atrial fibrillation, recurrent syncope, severe status post TAVR, recurrent CVA, upon a ranch block, hypercholesterolemia, pericardial effusion
pericardiocentesis 2022, anemia, symptomatic bradycardia with left bundle branch block status post pacemaker, symptomatic orthostatic hypotension with chronic hypotension, CKD 3B initially presented due to fatigue and syncope. EMS had arrived at
home was noted to have blood pressure 70s over 50s which improved with IV fluids. Patient reports melena for past few days prior to admission. Patient noted to have downtrending hemoglobin concerning for GI bleed for which GI has been consulted.
In discussion with patient, patient reports that she otherwise feels well currently. Denies chest pain, shortness of breath, palpitations, PND, orthopnea, edema, or weakness. She does note some dizziness with position changes. Initial hemoglobin
noted to be 7.1 (previous 10.6 roughly 10 days prior). Patient given 2 units of packed red blood cells and hemoglobin has continued to trend downward 7.8 at most recent check. Eliquis is been placed on hold. Patient has possible planned
EGD/colonoscopy by GI service on 03/19/2024.
Progress Note - Tractor Trailer Technician
Subjective
Date of Service: March 20, 2024
Pt seen and examined. No complaints. No chest pain or shortness of breath.
Objective
Labs:
03/20/24 04:32
03/20/24 04:32
Labs
Hgb 7.1 g/dL (12.0-16.0) L 03/20/24 04:32
Hct 21.1 % (37.0-47.0) L 03/20/24 04:32
Plt Count 118 10^3/uL (130-400) L 03/20/24 04:32
Sodium 136 mmol/L (135-145) 03/20/24 04:32
Potassium 3.8 mmol/L (3.5-5.1) 03/20/24 04:32
BUN 50 mg/dl (7-17) H 03/20/24 04:32
Creatinine 1.0 mg/dL (0.6-1.0) 03/20/24 04:32
Glucose 105 mg/dl (70-99) H 03/20/24 04:32
Vital Signs and I&O:
Vital Signs
Temp Pulse Resp BP Pulse Ox
98.0 F 70 14 103/45 99
03/20/24 06:49 03/20/24 06:49 03/20/24 06:49 03/20/24 06:49 03/20/24 06:00
Vital Signs
Temp Pulse Resp BP Pulse Ox
98.0 F 70 14 103/45 99
03/20/24 06:49 03/20/24 06:49 03/20/24 06:49 03/20/24 06:49 03/20/24 06:00
Intake & Output
03/18/24 03/19/24 03/20/24 03/21/24
06:59 06:59 06:59 06:59
Intake Total 1000 / 1000 3585 / 3585 2069
Output Total 1400 / 1400 1850 / 1850 1230 / 1230
Balance -400 / -400 1735 / 1735 840 / 840
Physical Exam
Physical Exam
General: No acute distress, AAOX3
Neck: Negative JVD
Heart: Regular, Negative S3 positive S1/S2, Negative S4, No murmur
Lungs: CTA b/l, negative wheezes/rales/rhonchi
Abd: Positive BS, NT/ND, neg rebound/rigidity/guarding
Ext: Negative cyanosis/clubbing. +lymphedema
Neuro: nonfocal
--- NOTE | 2024-03-20 09:00 | PTCARENOTE ---
Patient received from db2 developer. Patient resting comfortably in bed. AAO, VSS. No major events noted overnight, Hgb did drop with AM lab work and 1 unit PRBC was ordered, recheck H&H after unit completes. No complaints of pain. Caregiver at
bedisde. Will monitor for signs of bleeding. Call bello in reach.
--- NOTE | 2024-03-20 09:18 | W.PN.HOSP.TC ---
Addendum entered and electronically signed by Yon Means MD 03/20/24 17:01:
GI will do colonoscopy on so will stop Eliquis.
Addendum entered and electronically signed by Yon Means MD 03/20/24 14:40:
Stage 2 coccyx pressure injury, POA
Original Note:
Today's Communication/Plan
-
Blood transfusion. Monitor hemoglobin
Assessment / Plan
Assessment / Plan
Gen: NAD, AAOx3.
Eyes: EOMI, PERRLA, no scleral icterus.
Neck: supple.
CV: RRR, +S1/S2, no m/r/g.
Resp: CTAB, no rales, wheezes, or rhonchi.
Abd: +BS, soft, NT, ND
Skin: No rashes. 2+ B/L LE lymphedema
Neuro: CN 2-12 intact, non-focal.
Psych: Normal mood and affect.
A/P:
Syncope due to acute blood loss anemia (on chronic anemia) due to upper gastrointestinal bleeding exacerbated by Eliquis:
-h/o SB AVMs (was transferred to [place] in the past for SB-enteroscopy)
-stop Eliquis (last dose 03/17/24AM)
-Off IV fluids, on regular diet, stop IV PPI drip and changed to oral Protonix daily, restarted Eliquis since last night--> discussed with GI. Discussed with family at bedside. Transfuse blood today. Repeat hemoglobin tomorrow and if stable plan
to discharge.
-Hb improved s/p 2U pRBCs, cont to trend
-GI following
EGD:
Impression: - Normal esophagus.
- Traci-en-Y gastrojejunostomy with gastrojejunal
anastomosis characterized by healthy appearing mucosa.
- No specimens collected.
Recommendation: - [facility] patient to [facility] for ongoing care.
- Monitor HH. Okay to resume eliquis. If hemoglobin
remains stable after resuming AC, recommend outpatient
VCE. If evidence of active GI bleeding, please obtain
stat CTA.
Other problems:
CKD3b
Chronic, mild transaminitis
Hyperlipidemia: cont statin
h/o symptomatic orthostatic hypotension and chronic hypotension
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
Anemia of chronic disease
Paroxysmal A-fib: Hold Eliquis.
Hypothyroidism: cont Synthroid
h/o Right Distal Femur Fracture s/p Open Reduction Internal Fixation in January 2023
h/o Pneumonia with Parapneumonic Effusion requiring Thoracentesis in January 2023
h/o Hemorrhagic Pericardial effusion with Tamponade status post Pericardiocentesis in January 2023
Prior to admission wounds: Left heel pressure ulcer, Left heel unstageable in center, with ring of stage 2 vs 3 surrounding eschar
FULL/SCDs
Anticipated Discharge: 24 - 48 hours
Subjective/Interval History
-
Date of Service: March 20, 2024
Patient has some dark stools. No abdominal pain or nausea vomit
Objective Data
-
Labs:
Laboratory Results
03/20/24
04:32
WBC 11.4 H
Hgb 7.1 L
Hct 21.1 L
Plt Count 118 L
Sodium 136
Potassium 3.8
Chloride 113 H
Carbon Dioxide 21 L
BUN 50 H
Creatinine 1.0
Glucose 105 H
Calcium 7.6 L
Vital Signs:
Vital Signs
Temp Pulse Resp BP Pulse Ox
98.0 F 70 14 103/45 99
03/20/24 06:49 03/20/24 06:49 03/20/24 06:49 03/20/24 06:49 03/20/24 06:00
I&O
03/19/24 03/20/24 03/21/24
06:59 06:59 06:59
Intake Total 3585 / 3585 2069
Output Total 1850 / 1850 1230 / 1230
Balance 1735 / 1735 840 / 840
[2024-03-20] MEDS: MIRALAX 17 GRAMS PO (09:30)
[2024-03-20] MEDS: DITROPAN 5 MG PO ×2 (09:31→21:28)
[2024-03-20] MEDS: VITAMIN B-12 1000 MCG PO (09:31)
[2024-03-20] MEDS: LASIX 20 MG PO (09:31)
[2024-03-20] MEDS: NEURONTIN 300 MG PO ×2 (09:31→21:28)
[2024-03-20] MEDS: OSCAL 500 + D 500 MG PO (09:31)
[2024-03-20] MEDS: ELIQUIS 5 MG PO (09:31)
[2024-03-20] MEDS: THERAGRAN 1 TABLET PO (09:31)
[2024-03-20] MEDS: PROTONIX 40 MG PO (09:31)
--- NOTE | 2024-03-20 10:23 | PN.CDI ---
CDI
- -
CDI:
Physician Documentation Request
Admit Date: 03/17/24 13:36
Dear Doctor Clary,
Patient admitted with syncope due to acute blood loss anemia.
03/17 Nursing skin assessment, 'Stage 2 coccyx pressure injury, POA.'
Physician documentation of the type and location of wounds is required for compliant documentation. Based on the above clinical findings and your assessment, please provide the following in your progress note:
Type (etiology) of ulcer/wound:
- Diabetic ulcer
- Arterial (ischemic) ulcer
- Traumatic wound
- Venous stasis ulcer
- Pressure (decubitus) ulcer
- Non-healing surgical wound
- Other
- Unable to determine
For a pressure ulcer, please also include the stage* of the ulcer:
- Stage 1 - Skin intact, non-blanchable redness
- Stage 2 - Partial thickness loss of dermis, includes intact or open blister
- Stage 3 - Full thickness tissue not including bone, tendon or muscle
- Stage 4 - Full thickness tissue loss, including exposed bone, tendon or muscle
- Unstageable - Full thickness loss in which the base of the ulcer is covered by slough (yellow, velasco, larsen, green or brown) and/or eschar (velasoc, brown or black) in the wound bed.
- Unable to determine
Use of terms such as suspected, likely, concern for, or probable (associated with a specific diagnosis that is being evaluated, monitored, or treated as if it exists) are acceptable and can be coded in the inpatient setting, when documented at the
time of discharge.
Thank you,
Lyumdila DICKSON,RN,CCDS
CDI Specialist
Available via [place] text
Please use your independent medical judgment in providing your response.
*Source: National Pressure Ulcer Advisory Panel (NPUAP)
[2024-03-20 11:39] LABS: Hematocrit 24.8 % (37.0-47.0); Hemoglobin 8.2 g/dL (12.0-16.0)
--- NOTE | 2024-03-20 14:03 | W.PN.GI.CBS2 ---
Today's Communication / Plan
-
Will discuss performing colonoscopy with POA; trend H&H; STAT CTA if evidence of active GI bleeding
Assessment / Plan
-
88-year-old female with past medical history of CKD, aortic valve replacement, hx RYGB, left bundle branch block following aortic valve replacement, pacemaker, anemia of chronic disease, paroxysmal A-fib on Eliquis, hypothyroidism hemorrhagic
pericardial effusion with tamponade status post pericardiocentesis, sacral decubitus ulcer, hyperlipidemia, history of CVA, history of GI bleeding admitted with change in mental status and melena with concerns for hemodynamically unstable GI
bleeding.
Anemia, Melena-- c/f UGIB vs. small bowel source
-hemoglobin drop 10.6 --> 7.1; with adequate response to blood transfusion, however, continues to slowly trend down, requiring repeat transfusions without overt signs of GI bleeding
-Hemoglobin 8.2 following 1 unit PRBC this morning
-heme positive stool overnight
-2 large bore peripheral gauge IVs
-active T&C
-IV iron
-seen by cardiology, outpatient f/u to discuss possible watchman given c/f recurrent GI bleeding
-if she develops active GI bleeding, please obtain STAT bleeding scan in attempts to help localize the source
-Suspect distal small bowel source-- unfortunately, unable to perform inpatient capsule endoscopies at . In order to transfer patient to a tertiary care center for a capsule study, I need to first rule out a colonic source of bleeding, requiring
patient to take a bowel prep in order to perform colonoscopy. I will reach out to patients POAs-- son and granddaughter to discuss this workup to see if they wish to proceed
Subjective
Subjective
Date of Service: March 20, 2024
Patient was noted to be hypotensive this morning, hemoglobin 7.1 from 7.5 the day prior. She was transfused with 1 unit of PRBC, repeat following transfusion was 8.2. She had no evidence of GI bleeding overnight, she did have a bowel movement,
which was heme positive.
Objective
Data Reviewed
Laboratory Data:
Laboratory Results
03/20/24 11:13
03/20/24 04:32
Laboratory Results
Total Bilirubin 0.3 mg/dl (0.2-1.3) 03/17/24 11:22
AST 68 U/L (14-36) H 03/17/24 11:22
ALT 56 U/L (0-35) H 03/17/24 11:22
Alkaline Phosphatase 75 U/L (38-126) 03/17/24 11:22
Vital Signs and I&O:
Vital Signs
Temp Pulse Resp BP Pulse Ox
97.9 F 70 13 99/69 100
03/20/24 09:26 03/20/24 09:31 03/20/24 09:26 03/20/24 09:31 03/20/24 09:26
I&O
03/19/24 03/20/24 03/21/24
06:59 06:59 06:59
Intake Total 3585 / 3585 2070 / 2070 250 / 250
Output Total 1850 / 1850 1230 / 1230
Balance 1735 / 1735 840 / 840 250 / 250
Physical Exam
Physical Exam
GENERAL: In no acute distress, appears comfortable; chronically-ill appearing
ABDOMEN: +BS; soft, non-tender and non-distended; no rebound or guarding
[2024-03-20] MEDS: FERRLECIT 110 MG IV (14:54)
--- NOTE | 2024-03-20 16:59 | WOUNDNOTE ---
SACRUM AND COCCYX WITH FLASH
--- NOTE | 2024-03-20 17:00 | WOUNDNOTE ---
SACRUM AND GLUTEAL CLEFT
--- NOTE | 2024-03-20 17:05 | WOUNDNOTE ---
EUSEBIO RN note: Patient admitted with GI bleed, syncope and anemia.
See H&P for complete history.
PMH: recent pacer, recent R femur ORIF for fracture, a fib, aortic stenosis, TAVR, syncope, CKD3, anemia, bilateral TKR, gastric bypass, venous stasis, sacral stage 4 PI, follows at [facility].
Wound Location and type/assessment: Patient admitted with Sacral stage 4 PI. Discussed current wound care with wound care center nurse. Currently using Mesalt packing with foam dressing. Had been using a wound vac but that was discontinued few wks
ago. Recent MRI showed mild osteomyelitis. Gluteal cleft with redness, mild MASD. Patient incontinent of stool, skin care given. Heels with adhesive foams in use. Chronic lymphedema of legs.
Appetite: good.
Pressure redistribution devices in place: Air mattress. Pillows under calves.
Plan: Mesalt ribbon packed into wound, cover with silicone foam daily. Barrier cream to gluteal cleft daily and prn stool. Offload heels and change foams q 2-3 days.
Will confirm the above with hospitalist and nurse Singh updated on care.
Care plan to be updated and will follow as needed.
Note to case management of equipment requested for discharge: Air mattress if not already in place. Patient to follow up with Dr. Chung.
[2024-03-20] MEDS: GAVILAX 238 GM PO (17:43)
[2024-03-20] MEDS: DULCOLAX 10 MG PO (17:43)
--- NOTE | 2024-03-20 19:00 | PTCARENOTE ---
Unable to verify VS captured prior to 190
[2024-03-20] MEDS: LIPITOR 40 MG PO (21:28)
--- NOTE | 2024-03-20 22:20 | PTCARENOTE ---
Telephone report to RN on 3W. VIDEO OPERATOR covering house contacted regarding soft BPs. Electronic orders received to transfer to telemetry and IVF at 75 (awaiting pharmacy verification).
--- NOTE | 2024-03-20 22:50 | PTCARENOTE ---
Pt transferred in bed with all personal belongings.
--- NOTE | 2024-03-20 23:15 | TRANSFER ---
Assumed care of patient following transfer to 327 from IMU. Patient alert and oriented, no complaints at this time, denies pain. Patient stating that she feels she needs to have a BM but has not been able to get anything out. Upon turning patient
with PCT, patient able to push out large amount of formed, dark stool, heme +. Patient still with more stool to come out but unable to get anything further out at this time. Purewick changed and maintained, sacral foam dressing CDI. Small slit to
sacral crease -- barrier applied at this time and patient maintained Q2T. IVFs initiated and maintained per MD orders, BP stable at this time. marine steamfitter #19 initiated on patient -- AV paced with BBBC and prolonged QT present. Patient ready
to fall asleep, comfortable in bed at this time, lights turned off and call bello in reach. Will continue to monitor.
[2024-03-20] MEDS: NSS 1000 IV (23:32)
[2024-03-21] VITALS (8 sets, daily range): BP systolic 101–120; BP diastolic 35–78; PULSE 68; O2SAT 99; BMI 28.6
--- NOTE | 2024-03-21 03:15 | PTCARENOTE ---
Assumed care of Pt previous RN. assessment unchanged. Pt resting comfortably. no complaints offered. call bello within reach.
[2024-03-21] MEDS: SYNTHROID 150 MCG PO (05:59)
[2024-03-21 06:33] LABS: Hematocrit 24.5 % (37.0-47.0); Hemoglobin 8.1 g/dL (12.0-16.0); Mean Corp Hgb Conc. 33.1 g/dL (33.0-37.0); Mean Corpuscular Hgb 29.5 pg (27.0-31.0); Mean Corpuscular Volume 89.1 fL (81.0-99.0); Platelet Count 117 10^3/uL (130-400); Red Blood Cell Count 2.75 10^6/uL (4.20-5.40); Red Cell Dist. Width 18.8 % (11.5-14.5); White Blood Cell Count 6.2 10^3/uL (4.8-10.8)
[2024-03-21 07:26] LABS: Blood Urea Nitrogen 34 mg/dl (7-17); Calcium 7.6 mg/dl (8.4-10.2); Carbon Dioxide 23 mmol/L (22-30); Chloride 112 mmol/L (98-107); Estimated Creatinine Clearance 41 ml/min; Glucose 87 mg/dl (70-99); Potassium 3.8 mmol/L (3.5-5.1); Sodium 137 mmol/L (135-145); eGFR > 60.00
--- NOTE | 2024-03-21 08:43 | W.PN.HOSP.TC ---
Today's Communication/Plan
-
Plan for colonoscopy tomorrow
Assessment / Plan
Assessment / Plan
Gen: NAD, AAOx3.
Eyes: EOMI, PERRLA, no scleral icterus.
Neck: supple.
CV: RRR, +S1/S2, no m/r/g.
Resp: CTAB, no rales, wheezes, or rhonchi.
Abd: +BS, soft, NT, ND
Skin: No rashes. 2+ B/L LE lymphedema
Neuro: CN 2-12 intact, non-focal.
Psych: Normal mood and affect.
A/P:
Syncope due to acute blood loss anemia (on chronic anemia) due to upper gastrointestinal bleeding exacerbated by Eliquis:
-h/o SB AVMs (was transferred to [place] in the past for SB-enteroscopy)
-stop Eliquis (last dose 03/17/24)
-Off IV fluids, on regular diet, stop IV PPI drip and changed to oral Protonix daily, Eliquis on hold, GI planning doing a colonoscopy tomorrow . Blood transfusion as needed. Discussed with daughter at bedside today.
-Hb improved s/p 2U pRBCs, cont to trend. Latest hemoglobin 8.1
-GI following
EGD:
Impression: - Normal esophagus.
- Traci-en-Y gastrojejunostomy with gastrojejunal
anastomosis characterized by healthy appearing mucosa.
- No specimens collected.
Recommendation: - [facility] to [facility] for [facility] care.
- Monitor HH. Okay to resume eliquis. If hemoglobin
remains stable after resuming AC, recommend outpatient
VCE. If evidence of active GI bleeding, please obtain
stat CTA.
Other problems:
CKD3b
Chronic, mild transaminitis
Hyperlipidemia: cont statin
h/o symptomatic orthostatic hypotension and chronic hypotension
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
Anemia of chronic disease
Paroxysmal A-fib: Hold Eliquis. Might consider Watchman procedure but will defer to cardiology if she is a candidate for it.
Hypothyroidism: cont Synthroid
h/o Right Distal Femur Fracture s/p Open Reduction Internal Fixation in January 2023
h/o Pneumonia with Parapneumonic Effusion requiring Thoracentesis in January 2023
h/o Hemorrhagic Pericardial effusion with Tamponade status post Pericardiocentesis in January 2023
Prior to admission wounds: Left heel pressure ulcer, Left heel unstageable in center, with ring of stage 2 vs 3 surrounding eschar
FULL/SCDs
Anticipated Discharge: 24 - 48 hours
Subjective/Interval History
-
Date of Service: March 21, 2024
No bowel movement today. No hematemesis or melena.
Objective Data
-
Labs:
Laboratory Results
03/21/24
06:08
WBC 6.2
Hgb 8.1 L
Hct 24.5 L
Plt Count 117 L
Sodium 137
Potassium 3.8
Chloride 112 H
Carbon Dioxide 23
BUN 34 H
Creatinine 0.9
Glucose 87
Calcium 7.6 L
Vital Signs:
Vital Signs
Temp Pulse Resp BP Pulse Ox
97.9 F 74 17 107/44 99
03/21/24 08:00 03/21/24 08:00 03/21/24 08:00 03/21/24 08:00 03/21/24 08:00
I&O
03/20/24 03/21/24 03/22/24
06:59 06:59 06:59
Intake Total 2069
Output Total 1230 / 1230 1000 / 1000
Balance 840 / 840 958 / 580
[2024-03-21] MEDS: NEURONTIN 300 MG PO ×2 (08:56→20:34)
[2024-03-21] MEDS: PROTONIX 40 MG PO (08:56)
[2024-03-21] MEDS: LASIX 20 MG PO (08:56)
[2024-03-21] MEDS: THERAGRAN 1 TABLET PO (08:56)
[2024-03-21] MEDS: VITAMIN B-12 1000 MCG PO (08:56)
[2024-03-21] MEDS: OSCAL 500 + D 500 MG PO (08:57)
[2024-03-21] MEDS: MIRALAX PO (08:57)
[2024-03-21] MEDS: DITROPAN 5 MG PO ×2 (08:57→20:34)
--- NOTE | 2024-03-21 11:00 | WOUNDNOTE ---
EUSEBIO PAGE NOTE: Followed up today regarding heels with assist from PCT. Patient is on a [facility] air bed with pillow under calves. Old L heel pressure injury is healed, R heel intact. Skin prep and adhesive foams re applied.
--- NOTE | 2024-03-21 11:06 | W.PN.GI.CBS2 ---
Today's Communication / Plan
-
Hemoglobin stable. Colonoscopy tomorrow.
Assessment / Plan
-
88-year-old female with past medical history of CKD, aortic valve replacement, hx RYGB, left bundle branch block following aortic valve replacement, pacemaker, anemia of chronic disease, paroxysmal A-fib on Eliquis, hypothyroidism hemorrhagic
pericardial effusion with tamponade status post pericardiocentesis, sacral decubitus ulcer, hyperlipidemia, history of CVA, history of GI bleeding admitted with change in mental status and melena with concerns for hemodynamically unstable GI
bleeding.
Anemia, Melena-- c/f UGIB vs. small bowel source
-hemoglobin drop 10.6 --> 7.1; with adequate response to blood transfusion, however, continues to slowly trend down, requiring repeat transfusions without overt signs of GI bleeding
-Hemoglobin 8.2 following 1 unit PRBC yesterday, repeat this morning with stable hemoglobin of 8.2
-2 large bore peripheral gauge IVs
-active T&C
-eliquis held (last dose 03/20)
-seen by cardiology, outpatient f/u to discuss possible watchman given c/f recurrent GI bleeding
-if she develops active GI bleeding, please obtain STAT bleeding scan in attempts to help localize the source
-Suspect distal small bowel source-- unfortunately, unable to perform inpatient capsule endoscopies at . In order to transfer patient to a tertiary care center for a capsule study, I need to first rule out a colonic source of bleeding, requiring
patient to take a bowel prep in order to perform colonoscopy. Discussed at length with Mi, patient's POA. She would like to proceed with colonoscopy. She will remain on clear liquid diet and prep today, plan for colonoscopy tomorrow as the next
step in her evaluation.
Subjective
Subjective
Date of Service: March 21, 2024
No overnight events. Patient started taking prep last night, says it is going well. Offers no complaints. Hemoglobin stable.
Objective
Data Reviewed
Laboratory Data:
Laboratory Results
03/21/24 06:08
03/21/24 06:08
Laboratory Results
Total Bilirubin 0.3 mg/dl (0.2-1.3) 03/17/24 11:22
AST 68 U/L (14-36) H 03/17/24 11:22
ALT 56 U/L (0-35) H 03/17/24 11:22
Alkaline Phosphatase 75 U/L (38-126) 03/17/24 11:22
Vital Signs and I&O:
Vital Signs
Temp Pulse Resp BP Pulse Ox
97.9 F 74 17 107/44 99
03/21/24 08:00 03/21/24 08:56 03/21/24 08:00 03/21/24 08:56 03/21/24 08:00
I&O
03/20/24 03/21/24 03/22/24
06:59 06:59 06:59
Intake Total 2069
Output Total 1230 / 1230 1000 / 1000
Balance 840 / 840 958 / 958
Physical Exam
Physical Exam
GENERAL: In no acute distress, appears comfortable; chronically-ill appearing
ABDOMEN: +BS; soft, non-tender and non-distended; no rebound or guarding
[2024-03-21] MEDS: NSS 1000 IV (12:19)
--- NOTE | 2024-03-21 14:28 | W.PN.CARDCBS ---
Addendum entered and electronically signed by Pola Campbell MD 03/21/24 15:14:
I saw and examined the patient.
The New Car Driver's note was reviewed and I agree with the note.
Comment:
GEN: No distress, awake, Ox3
HEENT: supple, anicteric, mmm
LUNGS: CTA, no wheezes/rales
CV: Reg, S1/S2, 1/6 syst LSB, no murmur
ABD: soft, BS+, NT/ND
EXT: No edema
NEURO: Gross non-focal
SKIN: No rash
PLan:
Hemoglobin at 8.1. Continue to follow. Continue to hold anticoagulation. For colonoscopy tomorrow.
Would eventually consider watchman evaluation.
On echocardiogram transcatheter aortic valve is stable with mild AI and a preserved ejection fraction.
Weight is overall stable at 156 pounds. Continue to follow. Continue Lasix 20 mg daily with extra IV Lasix as needed. If she requires transfusion will give IV Lasix.
Original Note:
Today's Communication / Plan
-
Colonoscopy tomorrow
Follow weight, she has received 8 L IVFs and 4 units of PRBCs, cont Lasix 20 mg PO daily for now
Impression / Plan
-
PCP:Family Physician:� Dima Maldonado
Band Instrument Repairer: Dr. Sales
Impression:
Syncope, likely due to blood loss anemia with chronic medical conditions
Acute blood loss anemia, GIB
h/o GI bleeding, gastric ulcer, transfused 6 units of packed red blood cells, transferred to [facility] 2016
History of Syncope
previous admission 04/17/2023 with syncope after getting out of car shortly after discharge 04/16/2023
previous admission 04/11/2023 with syncope/unresponsive episode while in the shower
Orthostatic hypotension, symptomatic
TAVR 23mm Aquino ELVIS 3 on 07/01/22
LBBB following TAVR
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
s/p DC [facility] PPM placement 03/01/23
Pericardial effusion with tamponade
status post pericardiocentesis 02/11/2023 for 650 mL of bloody fluid, drain removed 02/13/2023
Paroxysmal atrial fibrillation
Chronic Eliquis OAC
Right distal periprosthetic femoral fracture 02/11/23, for ORIF 02/16/2023
CVA 08/11
Obstructive sleep apnea
Chronic Lymphedema
Hypertension
Dyslipidemia
Morbid obesity/gastric bypass 2005
IVC filter was prophylactically placed at the time of her gastric bypass
Bilateral TKA
Spinal stenosis/peripheral neuropathy
Ambulatory dysfunction
h/o UTIs
Echo 11/15/2022: Ejection fraction 50 to 55%, status post TAVR mean gradient of 12 mmHg
Echo 02/12/23:�Large pericardial effusion with cardiac tamponade.� LVEF estimated at 45% with no focal wall motion abnormality.� Echocardiogram obtained as a follow-up with resolution of pericardial effusion and pericardial tamponade then
demonstrates normal LV systolic function with LVEF estimated at approximately 55%.� Stable TAVR gradients
Echo February 14 2023:�EF 55% with mild LVH, AVR with peak/mean gradients of 30/13 mmHg, mil to mod TR with PASP 29 mmHg, small pericardial effusion without hemodynamic compromise.
Echo 02/21/23:�EF 55%, trivial pericardial effusion
ECHO 04/12/23: EF 55-60%, mild MR, mild TR, trace pericardial effusion, no significant change compared to prior
Echo 03/19/24: EF 55-60% mild LVH, mild MR, well-seated TAVR, Aquino Elvis 23. Peak/mean gradients are 25/11mmHg. Mild AR, mild TR with PASP 25-30mmHg
Plan:
-Patient admitted with syncope in the setting of GIB. Patient with a h/o of GIB and syncope. Eliquis 5 mg BID held on admission and patient had unremarkable upper endoscopy 03/19/24. Eliquis restarted 03/19/24 PM and Hgb dropped again. Now scheduled
for colonoscopy 03/22/24.
-Patient is stable to proceed with colonoscopy from a cardiac standpoint.
-Cont to hold Eliquis. No h/o thromboembolic event and so need for bridge. Eventual consideration for watchman once recovered from this acute event.
-Weight is up 2 lbs from admission after 8 L IVFs and 4 units PRBCs. Outpatient dose of Lasix 20 mg PO dialy has been continued. No doses of Lasix IV have been given. She is not SOB or hypoxic. Follow volume status closely and would give Lasix 40 mg
IV x1 if weight increases further or patient becomes symptomatic.
-Tele is AV paced by my review. Patient with h/o paroxysmal Afib. Last episode of Afib detected on [facility] PPM was 06/2023
HPI: Patient is a pleasant 88-year-old female with a past medical history significant for paroxysmal atrial fibrillation, recurrent syncope, severe status post TAVR, recurrent CVA, upon a ranch block, hypercholesterolemia, pericardial effusion
pericardiocentesis 2022, anemia, symptomatic bradycardia with left bundle branch block status post pacemaker, symptomatic orthostatic hypotension with chronic hypotension, CKD 3B initially presented due to fatigue and syncope. EMS had arrived at
home was noted to have blood pressure 70s over 50s which improved with IV fluids. Patient reports melena for past few days prior to admission. Patient noted to have downtrending hemoglobin concerning for GI bleed for which GI has been consulted.
In discussion with patient, patient reports that she otherwise feels well currently. Denies chest pain, shortness of breath, palpitations, PND, orthopnea, edema, or weakness. She does note some dizziness with position changes. Initial hemoglobin
noted to be 7.1 (previous 10.6 roughly 10 days prior). Patient given 2 units of packed red blood cells and hemoglobin has continued to trend downward 7.8 at most recent check. Eliquis is been placed on hold. Patient has possible planned
EGD/colonoscopy by GI service on 03/19/2024.
Progress Note - Band Instrument Repairer
Subjective
Date of Service: March 21, 2024
She is tired
Objective
Labs:
03/21/24 06:08
03/21/24 06:08
Labs
Hgb 8.1 g/dL (12.0-16.0) L 03/21/24 06:08
Hct 24.5 % (37.0-47.0) L 03/21/24 06:08
Plt Count 117 10^3/uL (130-400) L 03/21/24 06:08
Sodium 137 mmol/L (135-145) 03/21/24 06:08
Potassium 3.8 mmol/L (3.5-5.1) 03/21/24 06:08
BUN 34 mg/dl (7-17) H 03/21/24 06:08
Creatinine 0.9 mg/dL (0.6-1.0) 03/21/24 06:08
Glucose 87 mg/dl (70-99) 03/21/24 06:08
Vital Signs and I&O:
Vital Signs
Temp Pulse Resp BP Pulse Ox
97.7 F 91 18 112/54 94
03/21/24 11:00 03/21/24 11:00 03/21/24 11:00 03/21/24 11:00 03/21/24 11:00
Vital Signs
Temp Pulse Resp BP Pulse Ox
97.7 F 91 18 112/54 94
03/21/24 11:00 03/21/24 11:00 03/21/24 11:00 03/21/24 11:00 03/21/24 11:00
Intake & Output
03/19/24 03/20/24 03/21/24 03/22/24
06:59 06:59 06:59 06:59
Intake Total 3585 / 3585 2069 / 2069
Output Total 1850 / 1850 1230 / 1230 1000 / 1000
Balance 1735 / 1735 840 / 840 958 / 958
Physical Exam
Physical Exam
GEN: AAOx3
HEENT: mmm
LUNGS: No audible wheeze
CV: Paced on tele review
ABD: ND
EXT: No edema B/L
NEURO: Gross non-focal
SKIN: No rash
--- NOTE | 2024-03-21 16:03 | CM ---
Case management following for d/c planning
Chart reviewed
For colonoscopy tomorrow
PT/OT recommending HH - Current with [facility]
Plan - anticipate home with HH when medically ready
[2024-03-21] MEDS: GAVILAX 238 GM PO (17:46)
[2024-03-21] MEDS: LIPITOR 40 MG PO (20:34)
[2024-03-22] VITALS (9 sets, daily range): BP systolic 97–135; BP diastolic 46–71; BMI 29.3
[2024-03-22] MEDS: SYNTHROID 150 MCG PO (05:45)
[2024-03-22 06:22] LABS: Hematocrit 22.4 % (37.0-47.0); Hemoglobin 7.5 g/dL (12.0-16.0); Mean Corp Hgb Conc. 33.5 g/dL (33.0-37.0); Mean Corpuscular Hgb 29.5 pg (27.0-31.0); Mean Corpuscular Volume 88.2 fL (81.0-99.0); Platelet Count 109 10^3/uL (130-400); Red Blood Cell Count 2.54 10^6/uL (4.20-5.40); Red Cell Dist. Width 18.4 % (11.5-14.5); White Blood Cell Count 8.4 10^3/uL (4.8-10.8)
[2024-03-22 06:45] LABS: Blood Urea Nitrogen 22 mg/dl (7-17); Calcium 7.9 mg/dl (8.4-10.2); Carbon Dioxide 23 mmol/L (22-30); Chloride 110 mmol/L (98-107); Estimated Creatinine Clearance 46 ml/min; Glucose 85 mg/dl (70-99); Potassium 3.4 mmol/L (3.5-5.1); Sodium 136 mmol/L (135-145); eGFR > 60.00
[2024-03-22] MEDS: NEURONTIN 300 MG PO ×2 (08:35→20:17)
[2024-03-22] MEDS: DITROPAN 5 MG PO ×2 (08:35→20:17)
[2024-03-22] MEDS: PROTONIX 40 MG PO (08:35)
[2024-03-22] MEDS: THERAGRAN 1 TABLET PO (08:35)
[2024-03-22] MEDS: VITAMIN B-12 1000 MCG PO (08:35)
[2024-03-22] MEDS: OSCAL 500 + D 500 MG PO (08:35)
[2024-03-22] MEDS: LASIX 20 MG PO (08:36)
--- NOTE | 2024-03-22 09:03 | W.PN.HOSP.TC ---
Today's Communication/Plan
-
Colonoscopy today
Assessment / Plan
Assessment / Plan
Gen: NAD, AAOx3.
Eyes: EOMI, PERRLA, no scleral icterus.
Neck: supple.
CV: RRR, +S1/S2, no m/r/g.
Resp: CTAB, no rales, wheezes, or rhonchi.
Abd: +BS, soft, NT, ND
Skin: No rashes. 2+ B/L LE lymphedema
Neuro: CN 2-12 intact, non-focal.
Psych: Normal mood and affect.
A/P:
Syncope due to acute blood loss anemia (on chronic anemia) due to upper gastrointestinal bleeding exacerbated by Eliquis:
-h/o SB AVMs (was transferred to [place] in the past for SB-enteroscopy)
-stop Eliquis (last dose 03/17/24)
-Off IV fluids, on regular diet, stop IV PPI drip and changed to oral Protonix daily, Eliquis on hold, GI planning doing a colonoscopy today. Blood transfusion as needed. Discussed with daughter at bedside.
-Hb improved s/p 2U pRBCs, cont to trend. Latest hemoglobin 8.1
-GI following
EGD:
Impression: - Normal esophagus.
- Traci-en-Y gastrojejunostomy with gastrojejunal
anastomosis characterized by healthy appearing mucosa.
- No specimens collected.
Recommendation: - [facility] to [facility] for [facility] care.
- Monitor HH. Okay to resume eliquis. If hemoglobin
remains stable after resuming AC, recommend outpatient
VCE. If evidence of active GI bleeding, please obtain
stat CTA.
Other problems:
CKD3b
Chronic, mild transaminitis
Hyperlipidemia: cont statin
h/o symptomatic orthostatic hypotension and chronic hypotension
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
Anemia of chronic disease
Paroxysmal A-fib: Hold Eliquyazan. Might consider Watchman procedure but will defer to cardiology if she is a candidate for it.
Hypothyroidism: cont Synthroid
h/o Right Distal Femur Fracture s/p Open Reduction Internal Fixation in January 2023
h/o Pneumonia with Parapneumonic Effusion requiring Thoracentesis in January 2023
h/o Hemorrhagic Pericardial effusion with Tamponade status post Pericardiocentesis in January 2023
Prior to admission wounds: Left heel pressure ulcer, Left heel unstageable in center, with ring of stage 2 vs 3 surrounding eschar
FULL/SCDs
Anticipated Discharge: 24 - 48 hours
Subjective/Interval History
-
Date of Service: March 22, 2024
No new complaints. No abdominal pain or nausea.
Objective Data
-
Labs:
Laboratory Results
03/22/24
05:46
WBC 8.4
Hgb 7.5 L
Hct 22.4 L
Plt Count 109 L
Sodium 136
Potassium 3.4 L
Chloride 110 H
Carbon Dioxide 23
BUN 22 H
Creatinine 0.8
Glucose 85
Calcium 7.9 L
Vital Signs:
Vital Signs
Temp Pulse Resp BP Pulse Ox
98.2 F 78 17 110/55 95
03/22/24 08:00 03/22/24 08:36 03/22/24 08:00 03/22/24 08:36 03/22/24 08:00
I&O
03/21/24 03/22/24 03/23/24
06:59 06:59 06:59
Intake Total 1957 / 1957 1005 / 1005
Output Total 1000 / 1000 300 / 300
Balance 958 / 958 705 / 705
[2024-03-22] MEDS: KCL 270 MEQ IV (09:18)
--- NOTE | 2024-03-22 13:47 | VNURNOTE ---
Obtained updates from SEMAJ Marley. WOC RN recommending air mattress overlay at home. This author called patient's son Singh who confirmed they have a hospital bed with air mattress overlay at home. DME co [facility]. Son aware [facility] will reach
out within a few days of DC to schedule resumption VN visit.
--- NOTE | 2024-03-22 14:39 | CM ---
Case management following for d/c planning
Discussed PT/OT recs - with pt and grand-daughter
Current with [facility] - prefers to continue with them for home care needs
[facility] following for needs
CM will follow for d/c needs
Plan - anticipate home with [facility] when medically stable
--- NOTE | 2024-03-22 15:12 | W.PN.CARDCBS ---
Today's Communication / Plan
-
Colonoscopy noted. Anticoagulation with Eliquis to be resumed once ok with GI.
Monitor H/H.
Consider Watchman eval as outpt.
Echo with stable TAVR and preserved EF
Cont oral lasix. Remains euvolemic. Consider IV lasix after transfusions
AV pacing. Hx PaFib. Last episode AFib detected on ST PPM Jun 2023.
Impression / Plan
-
.
PCP:Family Physician:� Dima Maldonado
[employer] Lead: Dr. Sales
Impression:
Syncope, likely due to blood loss anemia with chronic medical conditions
Acute blood loss anemia, GIB
h/o GI bleeding, gastric ulcer, transfused 6 units of packed red blood cells, transferred to [facility] 2016
History of Syncope
previous admission 04/17/2023 with syncope after getting out of car shortly after discharge 04/16/2023
previous admission 04/11/2023 with syncope/unresponsive episode while in the shower
Orthostatic hypotension, symptomatic
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
LBBB following TAVR
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
s/p DC [facility]/Murphy PPM placement 03/01/23
Pericardial effusion with tamponade
status post pericardiocentesis 02/11/2023 for 650 mL of bloody fluid, drain removed 02/13/2023
Paroxysmal atrial fibrillation
Chronic Eliquis OAC
Right distal periprosthetic femoral fracture 02/11/23, for ORIF 02/16/2023
CVA 08/11
Obstructive sleep apnea
Chronic Lymphedema
Hypertension
Dyslipidemia
Morbid obesity/gastric bypass 2005
IVC filter was prophylactically placed at the time of her gastric bypass
Bilateral TKA
Spinal stenosis/peripheral neuropathy
Ambulatory dysfunction
h/o UTIs
Echo 11/15/2022: Ejection fraction 50 to 55%, status post TAVR mean gradient of 12 mmHg
Echo 02/12/23:�Large pericardial effusion with cardiac tamponade.� LVEF estimated at 45% with no focal wall motion abnormality.� Echocardiogram obtained as a follow-up with resolution of pericardial effusion and pericardial tamponade then
demonstrates normal LV systolic function with LVEF estimated at approximately 55%.� Stable TAVR gradients
Echo February 14 2023:�EF 55% with mild LVH, AVR with peak/mean gradients of 30/13 mmHg, mil to mod TR with PASP 29 mmHg, small pericardial effusion without hemodynamic compromise.
Echo 02/21/23:�EF 55%, trivial pericardial effusion
ECHO 04/12/23: EF 55-60%, mild MR, mild TR, trace pericardial effusion, no significant change compared to prior
Echo 03/19/24: EF 55-60% mild LVH, mild MR, well-seated TAVR, Aquino Kae 23. Peak/mean gradients are 25/11mmHg. Mild AR, mild TR with PASP 25-30mmHg
Plan:
Colonoscopy noted. Anticoagulation with Eliquis to be resumed once ok with GI.
Monitor H/H.
Consider Watchman eval as outpt.
Echo with stable TAVR and preserved EF
Cont oral lasix. Remains euvolemic. Consider IV lasix after transfusions
AV pacing. Hx PaFib. Last episode AFib detected on ST PPM Jun 2023.
Discussed with family at bedside.
Additional hx: Patient admitted with syncope in the setting of GIB. Patient with a h/o of GIB and syncope. Eliquis 5 mg BID held on admission and patient had unremarkable upper endoscopy 03/19/24. Eliquis restarted 03/19/24 PM and Hgb dropped again.
Now scheduled for colonoscopy 03/22/24.
HPI: Patient is a pleasant 88-year-old female with a past medical history significant for paroxysmal atrial fibrillation, recurrent syncope, severe status post TAVR, recurrent CVA, upon a ranch block, hypercholesterolemia, pericardial effusion
pericardiocentesis 2022, anemia, symptomatic bradycardia with left bundle branch block status post pacemaker, symptomatic orthostatic hypotension with chronic hypotension, CKD 3B initially presented due to fatigue and syncope. EMS had arrived at
home was noted to have blood pressure 70s over 50s which improved with IV fluids. Patient reports melena for past few days prior to admission. Patient noted to have downtrending hemoglobin concerning for GI bleed for which GI has been consulted.
In discussion with patient, patient reports that she otherwise feels well currently. Denies chest pain, shortness of breath, palpitations, PND, orthopnea, edema, or weakness. She does note some dizziness with position changes. Initial hemoglobin
noted to be 7.1 (previous 10.6 roughly 10 days prior). Patient given 2 units of packed red blood cells and hemoglobin has continued to trend downward 7.8 at most recent check. Eliquis is been placed on hold. Patient has possible planned
EGD/colonoscopy by GI service on 03/19/2024.
Progress Note - [employer] Lead
Subjective
Date of Service: March 22, 2024
Pt seen and examined. No complaints. No chest pain or shortness of breath.
Objective
Labs:
03/22/24 05:46
03/22/24 05:46
Labs
Hgb 7.5 g/dL (12.0-16.0) L 03/22/24 05:46
Hct 22.4 % (37.0-47.0) L 03/22/24 05:46
Plt Count 109 10^3/uL (130-400) L 03/22/24 05:46
Sodium 136 mmol/L (135-145) 03/22/24 05:46
Potassium 3.4 mmol/L (3.5-5.1) L 03/22/24 05:46
BUN 22 mg/dl (7-17) H 03/22/24 05:46
Creatinine 0.8 mg/dL (0.6-1.0) 03/22/24 05:46
Glucose 85 mg/dl (70-99) 03/22/24 05:46
Vital Signs and I&O:
Vital Signs
Temp Pulse Resp BP Pulse Ox
97.5 F 71 18 121/61 100
03/22/24 13:03 03/22/24 13:03 03/22/24 13:03 03/22/24 13:03 03/22/24 13:03
Vital Signs
Temp Pulse Resp BP Pulse Ox
97.5 F 71 18 121/61 100
03/22/24 13:03 03/22/24 13:03 03/22/24 13:03 03/22/24 13:03 03/22/24 13:03
Intake & Output
03/20/24 03/21/24 03/22/24 03/23/24
06:59 06:59 06:59 06:59
Intake Total 2069 / 2069 1957 / 1957 1005 / 1005
Output Total 1230 / 1230 1000 / 1000 300 / 300
Balance 840 / 840 958 / 958 705 / 705
Physical Exam
Physical Exam
General: No acute distress, AAOX3
Neck: Negative JVD
Heart: Regular, Negative S3 positive S1/S2, Negative S4, No murmur
Lungs: CTA b/l, negative wheezes/rales/rhonchi
Abd: Positive BS, NT/ND, neg rebound/rigidity/guarding
Ext: Negative cyanosis/clubbing/edema
Neuro: nonfocal
[2024-03-22 20:03] LABS: Hematocrit 26.7 % (37.0-47.0); Hemoglobin 8.8 g/dL (12.0-16.0)
[2024-03-22] MEDS: LIPITOR 40 MG PO (20:17)
[2024-03-23] VITALS (7 sets, daily range): BP systolic 92–126; BP diastolic 37–64; PULSE 102–105; O2SAT 93
[2024-03-23] MEDS: SYNTHROID 150 MCG PO (05:45)
[2024-03-23 06:22] LABS: Hematocrit 24.7 % (37.0-47.0); Hemoglobin 7.8 g/dL (12.0-16.0); Mean Corp Hgb Conc. 32.8 g/dL (33.0-37.0); Mean Corpuscular Hgb 29.2 pg (27.0-31.0); Mean Corpuscular Volume 89.1 fL (81.0-99.0); Platelet Count 120 10^3/uL (130-400); Red Blood Cell Count 2.67 10^6/uL (4.20-5.40); Red Cell Dist. Width 18.2 % (11.5-14.5); White Blood Cell Count 5.1 10^3/uL (4.8-10.8)
[2024-03-23 06:49] LABS: Blood Urea Nitrogen 18 mg/dl (7-17); Calcium 7.8 mg/dl (8.4-10.2); Carbon Dioxide 24 mmol/L (22-30); Chloride 109 mmol/L (98-107); Estimated Creatinine Clearance 42 ml/min; Glucose 87 mg/dl (70-99); Magnesium 1.6 mg/dl (1.6-2.3); Potassium 4.1 mmol/L (3.5-5.1); Sodium 136 mmol/L (135-145); eGFR > 60.00
[2024-03-23] MEDS: NEURONTIN 300 MG PO ×2 (09:08→21:13)
[2024-03-23] MEDS: PROTONIX 40 MG PO (09:09)
[2024-03-23] MEDS: DITROPAN 5 MG PO ×2 (09:09→21:13)
[2024-03-23] MEDS: VITAMIN B-12 1000 MCG PO (09:09)
[2024-03-23] MEDS: LASIX 20 MG PO (09:09)
[2024-03-23] MEDS: MIRALAX 17 GRAMS PO (09:09)
[2024-03-23] MEDS: OSCAL 500 + D 500 MG PO (09:09)
[2024-03-23] MEDS: THERAGRAN 1 TABLET PO (09:09)
--- NOTE | 2024-03-23 09:35 | W.PN.HOSP.TC ---
Addendum entered and electronically signed by Yon Means MD 03/23/24 14:37:
Thrombocytopenia
Original Note:
Today's Communication/Plan
-
Monitor hemoglobin. Awaiting GI recommendations.
Assessment / Plan
Assessment / Plan
Gen: NAD, AAOx3.
Eyes: EOMI, PERRLA, no scleral icterus.
Neck: supple.
CV: RRR, +S1/S2, no m/r/g.
Resp: CTAB, no rales, wheezes, or rhonchi.
Abd: +BS, soft, NT, ND
Skin: No rashes. 2+ B/L LE lymphedema
Neuro: CN 2-12 intact, non-focal.
Psych: Normal mood and affect.
A/P:
Syncope due to acute blood loss anemia (on chronic anemia) due to upper gastrointestinal bleeding exacerbated by Eliquis:
-h/o SB AVMs (was transferred to [place] in the past for SB-enteroscopy)
-stop Eliquis (last dose 03/17/24AM)
-Colonoscopy showed AVM as below. Reached out to GI to see if she would require transfer and if they have touched base with GI on the referring side or if they'd want to pursue these as outpatient and awaiting for response.
-Hb improved s/p 2U pRBCs, cont to trend. Latest hemoglobin 8.5
-GI following
Colonoscopy:
Impression: - Three non-bleeding colonic angioectasias. Treated
with a monopolar probe.
- Diverticulosis in the sigmoid colon.
- Stool in the entire examined colon.
- No specimens collected.

EGD:
Impression: - Normal esophagus.
- Traci-en-Y gastrojejunostomy with gastrojejunal
anastomosis characterized by healthy appearing mucosa.
- No specimens collected.
Recommendation: - [facility].
- Monitor HH. Okay to resume eliquis. If hemoglobin
remains stable after resuming AC, recommend outpatient
VCE. If evidence of active GI bleeding, please obtain
stat CTA.

Other problems:
CKD3b
Chronic, mild transaminitis
Hyperlipidemia: cont statin
h/o symptomatic orthostatic hypotension and chronic hypotension
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
Anemia of chronic disease
Paroxysmal A-fib: Hold Eliquis. Might consider Watchman procedure but will defer to cardiology if she is a candidate for it.
Hypothyroidism: cont Synthroid
h/o Right Distal Femur Fracture s/p Open Reduction Internal Fixation in January 2023
h/o Pneumonia with Parapneumonic Effusion requiring Thoracentesis in January 2023
h/o Hemorrhagic Pericardial effusion with Tamponade status post Pericardiocentesis in January 2023
Prior to admission wounds: Left heel pressure ulcer, Left heel unstageable in center, with ring of stage 2 vs 3 surrounding eschar
FULL/SCDs
Anticipated Discharge: 24 - 48 hours
Subjective/Interval History
-
Date of Service: March 23, 2024
No abdominal pain nausea or vomiting. No hematemesis or melena but there continues to be a drift on hemoglobin.
Objective Data
-
Labs:
Laboratory Results
03/23/24 03/23/24
05:57 12:00
WBC 5.1
Hgb 7.8 L Pending
Hct 24.7 L
Plt Count 120 L
Sodium 136
Potassium 4.1
Chloride 109 H
Carbon Dioxide 24
BUN 18 H
Creatinine 0.9
Glucose 87
Calcium 7.8 L
Vital Signs:
Vital Signs
Temp Pulse Resp BP Pulse Ox
98.1 F 79 18 105/60 96
03/23/24 07:05 03/23/24 09:09 03/23/24 07:05 03/23/24 09:09 03/23/24 07:05
I&O
03/22/24 03/23/24 03/24/24
06:59 06:59 06:59
Intake Total 1005 / 1005 800 / 800
Output Total 300 / 300 800 / 800
Balance 705 / 705 0 / 0
--- NOTE | 2024-03-23 10:50 | W.PN.CARDCBS ---
Addendum entered and electronically signed by Pola Campbell MD 03/23/24 11:35:
I saw and examined the patient.
The Waitstaff Captain's note was reviewed and I agree with the note.
Comment:
GEN: No distress, awake, Ox3
HEENT: supple, anicteric, mmm
LUNGS: CTA, no wheezes/rales
CV: Reg, S1/S2, 1/6 syst LSB, no gallop
ABD: soft, BS+, NT/ND
EXT: ++ chronic edema
NEURO: Gross non-focal
SKIN: No rash
PLan:
Hemoglobin back down to 7.8. Continue to hold anticoagulation. May need further evaluation at tertiary center for further evaluation of blood loss. Colonoscopy revealed several AVMs.
Volume status is overall acceptable. Continue to follow daily weights.
Continue Lasix 20 mg daily. If needs transfusion would give IV Lasix.
Original Note:
Today's Communication / Plan
-
Hgb down to 7.8. Repeat pending at noon
Continue to hold Eliquis
Continue PO lasix, if requires further transfusions, consider IV lasix following transfusions
Consideration for transfer to tertiary care center for VCE
Impression / Plan
-
PCP:Family Physician:� Dima Maldonado
[employer]ing Pipe Inspector: Dr. Sales
Impression:
Syncope, likely due to blood loss anemia with chronic medical conditions
Acute blood loss anemia, GIB
h/o GI bleeding, gastric ulcer, transfused 6 units of packed red blood cells, transferred to [facility] 2016
History of Syncope
previous admission 04/17/2023 with syncope after getting out of car shortly after discharge 04/16/2023
previous admission 04/11/2023 with syncope/unresponsive episode while in the shower
Orthostatic hypotension, symptomatic
TAVR 23mm Aquino ELVIS 3 on 07/01/22
LBBB following TAVR
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
s/p DC [facility]/Murphy PPM placement 03/01/23
Pericardial effusion with tamponade
status post pericardiocentesis 02/11/2023 for 650 mL of bloody fluid, drain removed 02/13/2023
Paroxysmal atrial fibrillation
Chronic Eliquis OAC
Right distal periprosthetic femoral fracture 02/11/23, s/p ORIF 02/16/2023
CVA 07/2021
Obstructive sleep apnea
Chronic Lymphedema
Hypertension
Dyslipidemia
Morbid obesity/gastric bypass 2005
IVC filter was prophylactically placed at the time of her gastric bypass
Bilateral TKA
Spinal stenosis/peripheral neuropathy
Ambulatory dysfunction
h/o UTIs
Echo 11/15/2022: Ejection fraction 50 to 55%, status post TAVR mean gradient of 12 mmHg
Echo 02/12/23:�Large pericardial effusion with cardiac tamponade.� LVEF estimated at 45% with no focal wall motion abnormality.� Echocardiogram obtained as a follow-up with resolution of pericardial effusion and pericardial tamponade then
demonstrates normal LV systolic function with LVEF estimated at approximately 55%.� Stable TAVR gradients
Echo February 14 2023:�EF 55% with mild LVH, AVR with peak/mean gradients of 30/13 mmHg, mil to mod TR with PASP 29 mmHg, small pericardial effusion without hemodynamic compromise.
Echo 02/21/23:�EF 55%, trivial pericardial effusion
ECHO 04/12/23: EF 55-60%, mild MR, mild TR, trace pericardial effusion, no significant change compared to prior
Echo 03/19/24: EF 55-60% mild LVH, mild MR, well-seated TAVR, Aquino Elvis 23. Peak/mean gradients are 25/11mmHg. Mild AR, mild TR with PASP 25-30mmHg
Plan:
-Patient admitted w/ syncope in the setting of GIB. She has known h/o GIB and syncope.
-Eliquis held on admission. Endoscopy 03/19 was unremarkable and Eliquis restarted, however then had drop in Hgb and Eliquis again placed on hold.
-s/p colonoscopy 03/22/2024 with three non bleeding colonic angioectasias.
-Hgb again dropped in AM 8, down to 7.8. down from 8.8 in PM 03/22. Repeat hemoglobin pending at noon. s/p 4 units PRBCs this admission, most recently 03/20.
-If hemoglobin continues to drop, considering transfer to tertiary care facility for VCE.
-May consider watchman eval as OP. For now continuing to hold Eliquis given ongoing anemia/GIB.
-Echo 03/19 with stable TAVR and preserved EF.
-Appears euvolemic. Continue PO lasix for now. If she requires further transfusions, would consider IV lasix after transfusions.
-Noted h/p paroxysmal atrial fibrillation. Last episode of AFib detected on ST PPM Jun 2023.
HPI: Patient is a pleasant 88-year-old female with a past medical history significant for paroxysmal atrial fibrillation, recurrent syncope, severe status post TAVR, recurrent CVA, upon a ranch block, hypercholesterolemia, pericardial effusion
pericardiocentesis 2022, anemia, symptomatic bradycardia with left bundle branch block status post pacemaker, symptomatic orthostatic hypotension with chronic hypotension, CKD 3B initially presented due to fatigue and syncope. EMS had arrived at
home was noted to have blood pressure 70s over 50s which improved with IV fluids. Patient reports melena for past few days prior to admission. Patient noted to have downtrending hemoglobin concerning for GI bleed for which GI has been consulted.
In discussion with patient, patient reports that she otherwise feels well currently. Denies chest pain, shortness of breath, palpitations, PND, orthopnea, edema, or weakness. She does note some dizziness with position changes. Initial hemoglobin
noted to be 7.1 (previous 10.6 roughly 10 days prior). Patient given 2 units of packed red blood cells and hemoglobin has continued to trend downward 7.8 at most recent check. Eliquis is been placed on hold. Patient has possible planned
EGD/colonoscopy by GI service on 03/19/2024.
Progress Note - Cooling Pipe Inspector
Subjective
Date of Service: March 23, 2024
Objective
Labs:
03/23/24 05:57
Labs
Hgb 7.8 g/dL (12.0-16.0) L 03/23/24 05:57
Hct 24.7 % (37.0-47.0) L 03/23/24 05:57
Plt Count 120 10^3/uL (130-400) L 03/23/24 05:57
Sodium 136 mmol/L (135-145) 03/23/24 05:57
Potassium 4.1 mmol/L (3.5-5.1) 03/23/24 05:57
BUN 18 mg/dl (7-17) H 03/23/24 05:57
Creatinine 0.9 mg/dL (0.6-1.0) 03/23/24 05:57
Glucose 87 mg/dl (70-99) 03/23/24 05:57
Vital Signs and I&O:
Vital Signs
Temp Pulse Resp BP Pulse Ox
98.1 F 79 18 105/60 96
03/23/24 07:05 03/23/24 09:09 03/23/24 07:05 03/23/24 09:09 03/23/24 07:05
Vital Signs
Temp Pulse Resp BP Pulse Ox
98.1 F 79 18 105/60 96
03/23/24 07:05 03/23/24 09:09 03/23/24 07:05 03/23/24 09:09 03/23/24 07:05
Intake & Output
03/21/24 03/22/24 03/23/24 03/24/24
06:59 06:59 06:59 06:59
Intake Total 1957 / 1957 1005 / 1005 800 / 800
Output Total 1000 / 1000 300 / 300 800 / 800
Balance 958 / 958 705 / 705 0 / 0
[2024-03-23 12:23] LABS: Hemoglobin 8.5 g/dL (12.0-16.0)
--- NOTE | 2024-03-23 12:55 | PN.CDI ---
CDI
- -
CDI:
Physician Documentation Request
Admit Date: 03/17/24 13:36
Dear Doctor Clary,
Patient admitted with syncope due to acute blood loss anemia.
Platelet count's documented below:
Laboratory Tests
03/20/24 03/21/24 03/22/24
04:32 06:08 05:46
Plt Count 118 L 117 L 109 L
03/23/24
05:57
Plt Count 120 L
Based on the above, please clarify in the progress notes, the appropriate diagnosis, if significant, that supports the above abnormalities and additional evaluation, monitoring and/or treatment rendered:
Thrombocytopenia
Insignificant abnormal lab findings
Other
Use of terms such as suspected, likely, concern for, or probable (associated with a specific diagnosis that is being evaluated, monitored, or treated as if it exists) are acceptable and can be coded in the inpatient setting, when documented at the
time of discharge.
Thank you,
Lyudmila DICKSON,RN,CCDS
CDI Specialist
Available via tiger text
Please use your independent medical judgment in providing your response.
--- NOTE | 2024-03-23 14:18 | CM ---
Case management following for d/c planning
PT recs - SNF at d/c
Discussed with pt - declining snf - reports she will have assist at home with friends and family. Pt does not want to stop chemo and is adamant about going home. Pt will accept home care - requesting [facility]
CM will send referral in [facility] for home care needs
Plan - anticipate home with [facility] when medically stable
--- NOTE | 2024-03-23 14:27 | CM ---
Case management following for d/c planning
Chart reviewed. Spoke with pt and granddaughter
[facility] to follow at d/c
CM available for d/c needs
Plan - anticipate home with [facility] when medically stable
--- NOTE | 2024-03-23 15:22 | W.PN.GI.CBS2 ---
Today's Communication / Plan
-
monitor Hb, reg diet
Assessment / Plan
-
88-year-old female with past medical history of CKD, aortic valve replacement, hx RYGB, left bundle branch block following aortic valve replacement, pacemaker, anemia of chronic disease, paroxysmal A-fib on Eliquis, hypothyroidism hemorrhagic
pericardial effusion with tamponade status post pericardiocentesis, sacral decubitus ulcer, hyperlipidemia, history of CVA, history of GI bleeding admitted with change in mental status and melena with concerns for hemodynamically unstable GI
bleeding.
Anemia, Melena-- likely small bowel bleed
s/p push entero and colon (small AVMs)
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
Hb today is stable no further overt bleeding
Recommendations:
- Regular diet
- Trend Hb
- Hold Eliquis (last dose 03/20)
- If no further bleeding plan d/c over weekend; if has ongoing bleeding needs to be transferred to [facility]
- Should have outpatient GI follow up - likely best to follow up at [facility] with history of small bowel AVM
D/w granddaughter at bedside and hospitalist
Total Time Spent with Patient (in minutes): 35
Subjective
Subjective
Date of Service: March 23, 2024
No BM today
Objective
Data Reviewed
Laboratory Data:
Laboratory Results
03/23/24 12:13
03/23/24 05:57
Laboratory Results
Magnesium 1.6 mg/dl (1.6-2.3) 03/23/24 05:57
Total Bilirubin 0.3 mg/dl (0.2-1.3) 03/17/24 11:22
AST 68 U/L (14-36) H 03/17/24 11:22
ALT 56 U/L (0-35) H 03/17/24 11:22
Alkaline Phosphatase 75 U/L (38-126) 03/17/24 11:22
Vital Signs and I&O:
Vital Signs
Temp Pulse Resp BP Pulse Ox
98.1 F 89 18 93/49 98
03/23/24 11:00 03/23/24 11:00 03/23/24 11:00 03/23/24 11:00 03/23/24 11:00
I&O
03/22/24 03/23/24 03/24/24
06:59 06:59 06:59
Intake Total 1005 / 1005 800 / 800
Output Total 300 / 300 800 / 800
Balance 705 / 705 0 / 0
Physical Exam
Physical Exam
HEENT: Anicteric
Cardiology: Normal Sinus Rhythm
Pulmonary: Clear
GI: Non Distended and Non Tender
[2024-03-23] MEDS: MAGNESIUM SULFATE 50 IV (17:57)
[2024-03-23] MEDS: LIPITOR 40 MG PO (21:13)
[2024-03-24 03:37] VITALS: BP 130/65
[2024-03-24] MEDS: SYNTHROID 150 MCG PO (05:00)
[2024-03-24 07:00] VITALS: BP 119/55
--- NOTE | 2024-03-24 08:43 | W.PN.HOSP.TC ---
Addendum entered and electronically signed by Yon Means MD 03/24/24 11:22:
GI reached out to me to restart anticoagulation today and if stable possible d/c in am.
Original Note:
Today's Communication/Plan
-
Monitor Hb
Assessment / Plan
Assessment / Plan
Gen: NAD, AAOx3.
Eyes: EOMI, PERRLA, no scleral icterus.
Neck: supple.
CV: RRR, +S1/S2, no m/r/g.
Resp: CTAB, no rales, wheezes, or rhonchi.
Abd: +BS, soft, NT, ND
Skin: No rashes. 2+ B/L LE lymphedema
Neuro: CN 2-12 intact, non-focal.
Psych: Normal mood and affect.
A/P:
Syncope due to acute blood loss anemia (on chronic anemia) due to upper gastrointestinal bleeding exacerbated by Eliquis:
-h/o SB AVMs (was transferred to [facility] in the past for SB-enteroscopy)
-stop Eliquis (last dose 03/17/24AM)
-Colonoscopy showed AVM as below. Reached out to GI and will follow final decision if d/c with OP follow up or ?need for inpte transfer. Cont monitor Hb
-Hb improved s/p 2U pRBCs, cont to trend. Latest hemoglobin 8.4
-GI following
Colonoscopy:
Impression: - Three non-bleeding colonic angioectasias. Treated
with a monopolar probe.
- Diverticulosis in the sigmoid colon.
- Stool in the entire examined colon.
- No specimens collected.

EGD:
Impression: - Normal esophagus.
- Traci-en-Y gastrojejunostomy with gastrojejunal
anastomosis characterized by healthy appearing mucosa.
- No specimens collected.
Recommendation: - [facility].
- Monitor HH. Okay to resume eliquis. If hemoglobin
remains stable after resuming AC, recommend outpatient
VCE. If evidence of active GI bleeding, please obtain
stat CTA.

Other problems:
CKD3b-->mild worsening so monitor closely
Hypomagnesemia-repleted yesterday iv-->today Mg 2.1 (K 4.1). On oral diuretics per cardio.
Chronic, mild transaminitis
Hyperlipidemia: cont statin
h/o symptomatic orthostatic hypotension and chronic hypotension
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
Anemia of chronic disease
Paroxysmal A-fib: Hold Eliquis. Might consider Watchman procedure but will defer to cardiology if she is a candidate for it.
Hypothyroidism: cont Synthroid
h/o Right Distal Femur Fracture s/p Open Reduction Internal Fixation in January 2023
h/o Pneumonia with Parapneumonic Effusion requiring Thoracentesis in January 2023
h/o Hemorrhagic Pericardial effusion with Tamponade status post Pericardiocentesis in January 2023
Prior to admission wounds: Left heel pressure ulcer, Left heel unstageable in center, with ring of stage 2 vs 3 surrounding eschar
FULL/SCDs
Anticipated Discharge: 24 - 48 hours
Subjective/Interval History
-
Date of Service: March 24, 2024
no BM today, no abd pain n/v. No cp/sob
Objective Data
-
Labs:
Laboratory Results
03/24/24
06:16
WBC Pending
Hgb Pending
Hct Pending
Plt Count Pending
Sodium Pending
Potassium Pending
Chloride Pending
Carbon Dioxide Pending
BUN Pending
Creatinine Pending
Glucose Pending
Calcium Pending
Vital Signs:
Vital Signs
Temp Pulse Resp BP Pulse Ox
97.6 F 71 16 119/55 97
03/24/24 07:00 03/24/24 07:00 03/24/24 07:00 03/24/24 07:00 03/24/24 07:00
I&O
03/23/24 03/24/24 03/25/24
06:59 06:59 06:59
Intake Total 800 / 800 1020 / 1020
Output Total 800 / 800 400 / 400
Balance 0 / 0 620 / 620
[2024-03-24] MEDS: VITAMIN B-12 1000 MCG PO (08:46)
[2024-03-24] MEDS: NEURONTIN 300 MG PO ×2 (08:46→19:54)
[2024-03-24] MEDS: PROTONIX 40 MG PO (08:46)
[2024-03-24] MEDS: DITROPAN 5 MG PO ×2 (08:46→19:55)
[2024-03-24] MEDS: THERAGRAN 1 TABLET PO (08:46)
[2024-03-24] MEDS: OSCAL 500 + D 500 MG PO (08:46)
[2024-03-24] MEDS: LASIX 20 MG PO (08:46)
[2024-03-24] MEDS: MIRALAX 17 GRAMS PO (08:46)
[2024-03-24 09:31] LABS: Hematocrit 25.4 % (37.0-47.0); Hemoglobin 8.4 g/dL (12.0-16.0); Mean Corp Hgb Conc. 33.1 g/dL (33.0-37.0); Mean Corpuscular Hgb 30.1 pg (27.0-31.0); Mean Platelet Volume 10.4 fL (7.4-10.4); Platelet Count 142 10^3/uL (130-400); Red Blood Cell Count 2.79 10^6/uL (4.20-5.40); Red Cell Dist. Width 18.2 % (11.5-14.5); White Blood Cell Count 5.3 10^3/uL (4.8-10.8)
[2024-03-24 09:34] LABS: Blood Urea Nitrogen 19 mg/dl (7-17); Calcium 7.6 mg/dl (8.4-10.2); Carbon Dioxide 24 mmol/L (22-30); Chloride 107 mmol/L (98-107); Estimated Creatinine Clearance 31 ml/min; Glucose 79 mg/dl (70-99); Magnesium 2.1 mg/dl (1.6-2.3); Phosphorus 3.8 mg/dl (2.5-4.5); Potassium 4.1 mmol/L (3.5-5.1); Sodium 135 mmol/L (135-145); eGFR 43.81
--- NOTE | 2024-03-24 09:52 | W.PN.CARDCBS ---
Today's Communication / Plan
-
Stable cv status
Remains euvolemic
Await further GI input regarding transfer vs outpt reeval and timing of resuming anticoagulation.
Impression / Plan
-
PCP:Family Physician:� Dima Maldonado
Sign Installer: Dr. Sales
Impression:
Syncope, likely due to blood loss anemia with chronic medical conditions
Acute blood loss anemia, GIB
h/o GI bleeding, gastric ulcer, transfused 6 units of packed red blood cells, transferred to [facility] 2016
History of Syncope
previous admission 04/17/2023 with syncope after getting out of car shortly after discharge 04/16/2023
previous admission 04/11/2023 with syncope/unresponsive episode while in the shower
Orthostatic hypotension, symptomatic
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
LBBB following TAVR
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
s/p DC [facility]/Murphy PPM placement 03/01/23
Pericardial effusion with tamponade
status post pericardiocentesis 02/11/2023 for 650 mL of bloody fluid, drain removed 02/13/2023
Paroxysmal atrial fibrillation
Chronic Eliquis OAC
Right distal periprosthetic femoral fracture 02/11/23, s/p ORIF 02/16/2023
CVA 07/2021
Obstructive sleep apnea
Chronic Lymphedema
Hypertension
Dyslipidemia
Morbid obesity/gastric bypass 2005
IVC filter was prophylactically placed at the time of her gastric bypass
Bilateral TKA
Spinal stenosis/peripheral neuropathy
Ambulatory dysfunction
h/o UTIs
Echo 11/15/2022: Ejection fraction 50 to 55%, status post TAVR mean gradient of 12 mmHg
Echo 02/12/23:�Large pericardial effusion with cardiac tamponade.� LVEF estimated at 45% with no focal wall motion abnormality.� Echocardiogram obtained as a follow-up with resolution of pericardial effusion and pericardial tamponade then
demonstrates normal LV systolic function with LVEF estimated at approximately 55%.� Stable TAVR gradients
Echo February 14 2023:�EF 55% with mild LVH, AVR with peak/mean gradients of 30/13 mmHg, mil to mod TR with PASP 29 mmHg, small pericardial effusion without hemodynamic compromise.
Echo 02/21/23:�EF 55%, trivial pericardial effusion
ECHO 04/12/23: EF 55-60%, mild MR, mild TR, trace pericardial effusion, no significant change compared to prior
Echo 03/19/24: EF 55-60% mild LVH, mild MR, well-seated TAVR, Aquino Kae 23. Peak/mean gradients are 25/11mmHg. Mild AR, mild TR with PASP 25-30mmHg
Plan:
-Patient admitted w/ syncope in the setting of GIB. She has known h/o GIB and syncope.
Eliquis held on admission. Endoscopy 03/19 was unremarkable and Eliquis restarted, however then had drop in Hgb and Eliquis again placed on hold.
-s/p colonoscopy 03/22/2024 with three non bleeding colonic angioectasias.
Hgb dropped in AM 03/23, down to 7.8. down from 8.8 in PM 03/22. Repeat hemoglobin 8.5 noon 03/23. Hemoglobin 8.4 on 03/24. s/p 4 units PRBCs this admission, most recently 03/20.
-If hemoglobin continues to drop, GI considering transfer to tertiary care facility for VCE vs outpt reeval
May consider watchman eval as outpt. For now continuing to hold Eliquis given ongoing anemia/GIB.
Remains euvolemic. Cont PO lasix.
-Echo 03/19 with stable TAVR and preserved EF.
-If she requires further transfusions, would consider IV lasix after transfusions.
-Noted h/x paroxysmal atrial fibrillation. Last episode of AFib detected on ST PPM Jun 2023.
Remains AV paced
Discussed with GI.
HPI: Patient is a pleasant 88-year-old female with a past medical history significant for paroxysmal atrial fibrillation, recurrent syncope, severe status post TAVR, recurrent CVA, upon a ranch block, hypercholesterolemia, pericardial effusion
pericardiocentesis 2022, anemia, symptomatic bradycardia with left bundle branch block status post pacemaker, symptomatic orthostatic hypotension with chronic hypotension, CKD 3B initially presented due to fatigue and syncope. EMS had arrived at
home was noted to have blood pressure 70s over 50s which improved with IV fluids. Patient reports melena for past few days prior to admission. Patient noted to have downtrending hemoglobin concerning for GI bleed for which GI has been consulted.
In discussion with patient, patient reports that she otherwise feels well currently. Denies chest pain, shortness of breath, palpitations, PND, orthopnea, edema, or weakness. She does note some dizziness with position changes. Initial hemoglobin
noted to be 7.1 (previous 10.6 roughly 10 days prior). Patient given 2 units of packed red blood cells and hemoglobin has continued to trend downward 7.8 at most recent check. Eliquis is been placed on hold. Patient has possible planned
EGD/colonoscopy by GI service on 03/19/2024.
Progress Note - Sign Installer
Subjective
Date of Service: March 24, 2024
Pt seen and examined. No complaints. No chest pain or shortness of breath.
Objective
Labs:
03/24/24 06:16
03/24/24 06:16
Labs
Hgb 8.4 g/dL (12.0-16.0) L 03/24/24 06:16
Hct 25.4 % (37.0-47.0) L 03/24/24 06:16
Plt Count 142 10^3/uL (130-400) 03/24/24 06:16
Sodium 135 mmol/L (135-145) 03/24/24 06:16
Potassium 4.1 mmol/L (3.5-5.1) 03/24/24 06:16
BUN 19 mg/dl (7-17) H 03/24/24 06:16
Creatinine 1.2 mg/dL (0.6-1.0) H 03/24/24 06:16
Glucose 79 mg/dl (70-99) 03/24/24 06:16
Vital Signs and I&O:
Vital Signs
Temp Pulse Resp BP Pulse Ox
97.6 F 71 16 119/55 97
03/24/24 07:00 03/24/24 07:00 03/24/24 07:00 03/24/24 07:00 03/24/24 07:00
Vital Signs
Temp Pulse Resp BP Pulse Ox
97.6 F 71 16 119/55 97
03/24/24 07:00 03/24/24 07:00 03/24/24 07:00 03/24/24 07:00 03/24/24 07:00
Intake & Output
03/22/24 03/23/24 03/24/24 03/25/24
06:59 06:59 06:59 06:59
Intake Total 1005 / 1005 800 / 800 1020 / 1020
Output Total 300 / 300 800 / 800 400 / 400
Balance 705 / 705 0 / 0 620 / 620
Physical Exam
Physical Exam
General: No acute distress, AAOX3
Neck: Negative JVD
Heart: Regular, Negative S3 positive S1/S2, Negative S4, No murmur
Lungs: CTA b/l, negative wheezes/rales/rhonchi
Abd: Positive BS, NT/ND, neg rebound/rigidity/guarding
Ext: Negative cyanosis/clubbing/edema
Neuro: nonfocal
[2024-03-24 11:00] VITALS: BP 113/52
--- NOTE | 2024-03-24 13:24 | W.PN.GI.CBS2 ---
Today's Communication / Plan
-
resume viji prieto planning
Assessment / Plan
-
88-year-old female with past medical history of CKD, aortic valve replacement, hx RYGB, left bundle branch block following aortic valve replacement, pacemaker, anemia of chronic disease, paroxysmal A-fib on Eliquis, hypothyroidism hemorrhagic
pericardial effusion with tamponade status post pericardiocentesis, sacral decubitus ulcer, hyperlipidemia, history of CVA, history of GI bleeding admitted with change in mental status and melena with concerns for hemodynamically unstable GI
bleeding.
Anemia, Melena-- likely small bowel bleed
s/p push entero and colon (small AVMs)
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
Hb today is stable no further overt bleeding
Recommendations:
- Regular diet
- Trend Hb
- Resume Luisa sykes d/w hospitalist
- If no further bleeding plan d/c tomorrow; if has ongoing bleeding needs to be transferred to [place]
- Should have outpatient GI follow up - likely best to follow up at [place] with history of small bowel AVM
Subjective
Subjective
Date of Service: March 24, 2024
hb stable no further bm
Objective
Data Reviewed
Laboratory Data:
Laboratory Results
03/24/24 06:16
03/24/24 06:16
Laboratory Results
Phosphorus 3.8 mg/dl (2.5-4.5) 03/24/24 06:16
Magnesium 2.1 mg/dl (1.6-2.3) 03/24/24 06:16
Total Bilirubin 0.3 mg/dl (0.2-1.3) 03/17/24 11:22
AST 68 U/L (14-36) H 03/17/24 11:22
ALT 56 U/L (0-35) H 03/17/24 11:22
Alkaline Phosphatase 75 U/L (38-126) 03/17/24 11:22
Vital Signs and I&O:
Vital Signs
Temp Pulse Resp BP Pulse Ox
97.8 F 71 16 113/52 98
03/24/24 11:00 03/24/24 11:00 03/24/24 11:00 03/24/24 11:00 03/24/24 11:00
I&O
03/23/24 03/24/24 03/25/24
06:59 06:59 06:59
Intake Total 800 / 800 1020 / 1020
Output Total 800 / 800 400 / 400
Balance 0 / 0 620 / 620
Physical Exam
Physical Exam
GI: Non Distended and Non Tender
[2024-03-24 15:00] VITALS: BP 121/59
[2024-03-24 19:15] VITALS: BP 120/54
[2024-03-24] MEDS: ELIQUIS 5 MG PO (19:54)
[2024-03-24] MEDS: LIPITOR 40 MG PO (19:55)
[2024-03-24 23:25] VITALS: BP 128/59
[2024-03-25] VITALS (7 sets, daily range): BP systolic 110–125; BP diastolic 51–65; PULSE 82
[2024-03-25] MEDS: SYNTHROID 150 MCG PO (05:34)
[2024-03-25] MEDS: OSCAL 500 + D 500 MG PO (08:14)
[2024-03-25] MEDS: THERAGRAN 1 TABLET PO (08:14)
[2024-03-25] MEDS: PROTONIX 40 MG PO (08:14)
[2024-03-25] MEDS: NEURONTIN 300 MG PO ×2 (08:14→21:59)
[2024-03-25] MEDS: MIRALAX 17 GRAMS PO (08:14)
[2024-03-25] MEDS: VITAMIN B-12 1000 MCG PO (08:14)
[2024-03-25] MEDS: LASIX 20 MG PO (08:15)
[2024-03-25] MEDS: DITROPAN 5 MG PO ×2 (08:15→22:01)
[2024-03-25] MEDS: ELIQUIS 5 MG PO ×2 (08:15→22:00)
--- NOTE | 2024-03-25 08:40 | W.PN.HOSP.TC ---
Today's Communication/Plan
-
Monitor hemoglobin.
Assessment / Plan
Assessment / Plan
Gen: NAD, AAOx3.
Eyes: EOMI, PERRLA, no scleral icterus.
Neck: supple.
CV: RRR, +S1/S2, no m/r/g.
Resp: CTAB, no rales, wheezes, or rhonchi.
Abd: +BS, soft, NT, ND
Skin: No rashes. 2+ B/L LE lymphedema
Neuro: CN 2-12 intact, non-focal.
Psych: Normal mood and affect.
A/P:
Syncope due to acute blood loss anemia (on chronic anemia) due to upper gastrointestinal bleeding exacerbated by Eliquis:
-h/o SB AVMs (was transferred to [place] in the past for SB-enteroscopy)
-Tolerating Eliquis
-Colonoscopy showed AVM as below. Hb remains stable after resuming anticoagulation. I reached out to granddaughter and she adamantly does not want her grandmother to be discharged today and she wants to repeat hemoglobin tomorrow-I let GI know.
-Hb improved s/p 2U pRBCs, cont to trend. Latest hemoglobin 9
-GI following
Colonoscopy:
Impression: - Three non-bleeding colonic angioectasias. Treated
with a monopolar probe.
- Diverticulosis in the sigmoid colon.
- Stool in the entire examined colon.
- No specimens collected.

EGD:
Impression: - Normal esophagus.
- Traci-en-Y gastrojejunostomy with gastrojejunal
anastomosis characterized by healthy appearing mucosa.
- No specimens collected.
Recommendation: - [facility].
- Monitor HH. Okay to resume eliquis. If hemoglobin
remains stable after resuming AC, recommend outpatient
VCE. If evidence of active GI bleeding, please obtain
stat CTA.

Other problems:
[id number]
Hypomagnesemia-repleted
Chronic, mild transaminitis
Hyperlipidemia: cont statin
h/o symptomatic orthostatic hypotension and chronic hypotension
Transcatheter aortic valve replacement 23mm Aquino KAE 3 on 07/01/22. On oral diuretics.
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
Anemia of chronic disease
Paroxysmal A-fib: Hold Eliquis. Might consider Watchman procedure as OP.
Hypothyroidism: cont Synthroid
h/o Right Distal Femur Fracture s/p Open Reduction Internal Fixation in January 2023
h/o Pneumonia with Parapneumonic Effusion requiring Thoracentesis in January 2023
h/o Hemorrhagic Pericardial effusion with Tamponade status post Pericardiocentesis in January 2023
Prior to admission wounds: Left heel pressure ulcer, Left heel unstageable in center, with ring of stage 2 vs 3 surrounding eschar
FULL/SCDs
Anticipated Discharge: 24 - 48 hours
Subjective/Interval History
-
Date of Service: March 25, 2024
No melena or hematemesis. No abdominal pain nausea or vomiting.
Objective Data
-
Labs:
Laboratory Results
03/25/24
06:00
WBC Pending
Hgb Pending
Hct Pending
Plt Count Pending
Sodium Pending
Potassium Pending
Chloride Pending
Carbon Dioxide Pending
BUN Pending
Creatinine Pending
Glucose Pending
Calcium Pending
Vital Signs:
Vital Signs
Temp Pulse Resp BP Pulse Ox
97.8 F 76 19 125/65 96
03/25/24 08:00 03/25/24 08:00 03/25/24 08:00 03/25/24 08:00 03/25/24 08:00
I&O
03/24/24 03/25/24 03/26/24
06:59 06:59 06:59
Intake Total 1020 / 1020 720 / 720
Output Total 400 / 400 900 / 900
Balance 620 / 620 -180 / -180
[2024-03-25 09:20] LABS: Hematocrit 27.6 % (37.0-47.0); Mean Corp Hgb Conc. 32.6 g/dL (33.0-37.0); Mean Corpuscular Hgb 30.2 pg (27.0-31.0); Mean Corpuscular Volume 92.6 fL (81.0-99.0); Mean Platelet Volume 9.8 fL (7.4-10.4); Platelet Count 146 10^3/uL (130-400); Red Blood Cell Count 2.98 10^6/uL (4.20-5.40); Red Cell Dist. Width 17.9 % (11.5-14.5)
--- NOTE | 2024-03-25 09:26 | W.PN.CARDCBS ---
Today's Communication / Plan
-
Back on Eliquis and hemoglobin stable at 9.0.
Okay for discharge from cardiac standpoint. Continue close monitoring of hemoglobin.
Will discuss watchman as outpatient.
Continue Lasix 20 mg daily.
Impression / Plan
-
PCP:Family Physician:� Dima Maldonado
Shipping Room Supervisor: Dr. Sales
Impression:
Syncope, likely due to blood loss anemia with chronic medical conditions
Acute blood loss anemia, GIB
h/o GI bleeding, gastric ulcer, transfused 6 units of packed red blood cells, transferred to [facility] 2016
History of Syncope
previous admission 04/17/2023 with syncope after getting out of car shortly after discharge 04/16/2023
previous admission 04/11/2023 with syncope/unresponsive episode while in the shower
Orthostatic hypotension, symptomatic
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
LBBB following TAVR
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
s/p DC [facility]/Murphy PPM placement 03/01/23
Pericardial effusion with tamponade
status post pericardiocentesis 02/11/2023 for 650 mL of bloody fluid, drain removed 02/13/2023
Paroxysmal atrial fibrillation
Chronic Eliquis OAC
Right distal periprosthetic femoral fracture 02/11/23, s/p ORIF 02/16/2023
CVA 07/2021
Obstructive sleep apnea
Chronic Lymphedema
Hypertension
Dyslipidemia
Morbid obesity/gastric bypass 2005
IVC filter was prophylactically placed at the time of her gastric bypass
Bilateral TKA
Spinal stenosis/peripheral neuropathy
Ambulatory dysfunction
h/o UTIs
Echo 11/15/2022: Ejection fraction 50 to 55%, status post TAVR mean gradient of 12 mmHg
Echo 02/12/23:�Large pericardial effusion with cardiac tamponade.� LVEF estimated at 45% with no focal wall motion abnormality.� Echocardiogram obtained as a follow-up with resolution of pericardial effusion and pericardial tamponade then
demonstrates normal LV systolic function with LVEF estimated at approximately 55%.� Stable TAVR gradients
Echo February 14 2023:�EF 55% with mild LVH, AVR with peak/mean gradients of 30/13 mmHg, mil to mod TR with PASP 29 mmHg, small pericardial effusion without hemodynamic compromise.
Echo 02/21/23:�EF 55%, trivial pericardial effusion
ECHO 04/12/23: EF 55-60%, mild MR, mild TR, trace pericardial effusion, no significant change compared to prior
Echo 03/19/24: EF 55-60% mild LVH, mild MR, well-seated TAVR, Aquino Kae 23. Peak/mean gradients are 25/11mmHg. Mild AR, mild TR with PASP 25-30mmHg
Plan:
-Patient admitted w/ syncope in the setting of GIB. She has known h/o GIB and syncope.
Eliquis held on admission. Endoscopy 03/19 was unremarkable and Eliquis restarted, however then had drop in Hgb and Eliquis again placed on hold.
-s/p colonoscopy 03/22/2024 with three non bleeding colonic angioectasias.
Hgb dropped in AM 03/23, down to 7.8. down from 8.8 in PM 03/22. Repeat hemoglobin 8.5 noon 03/23. Hemoglobin 8.4 on 03/24. s/p 4 units PRBCs this admission, most recently 03/20.
Hemoglobin back to 9.0 and back on Eliquis 03/24. Will need close monitoring of hemoglobin as outpatient.
May consider watchman eval as outpt.
Remains euvolemic. Cont PO lasix.
-Echo 03/19 with stable TAVR and preserved EF.
-If she requires further transfusions, would consider IV lasix after transfusions.
-Noted h/x paroxysmal atrial fibrillation. Last episode of AFib detected on ST PPM Jun 2023.
Remains AV paced
Discussed with GI.
HPI: Patient is a pleasant 88-year-old female with a past medical history significant for paroxysmal atrial fibrillation, recurrent syncope, severe status post TAVR, recurrent CVA, upon a ranch block, hypercholesterolemia, pericardial effusion
pericardiocentesis 2022, anemia, symptomatic bradycardia with left bundle branch block status post pacemaker, symptomatic orthostatic hypotension with chronic hypotension, CKD 3B initially presented due to fatigue and syncope. EMS had arrived at
home was noted to have blood pressure 70s over 50s which improved with IV fluids. Patient reports melena for past few days prior to admission. Patient noted to have downtrending hemoglobin concerning for GI bleed for which GI has been consulted.
In discussion with patient, patient reports that she otherwise feels well currently. Denies chest pain, shortness of breath, palpitations, PND, orthopnea, edema, or weakness. She does note some dizziness with position changes. Initial hemoglobin
noted to be 7.1 (previous 10.6 roughly 10 days prior). Patient given 2 units of packed red blood cells and hemoglobin has continued to trend downward 7.8 at most recent check. Eliquis is been placed on hold. Patient has possible planned
EGD/colonoscopy by GI service on 03/19/2024.
Progress Note - Shipping Room Supervisor
Subjective
Date of Service: March 25, 2024
Overall feels well with no further bleeding.
Objective
Labs:
03/25/24 08:50
Labs
Hgb 9.0 g/dL (12.0-16.0) L 03/25/24 08:50
Hct 27.6 % (37.0-47.0) L 03/25/24 08:50
Plt Count 146 10^3/uL (130-400) 03/25/24 08:50
Sodium 135 mmol/L (135-145) 03/24/24 06:16
Potassium 4.1 mmol/L (3.5-5.1) 03/24/24 06:16
BUN 19 mg/dl (7-17) H 03/24/24 06:16
Creatinine 1.2 mg/dL (0.6-1.0) H 03/24/24 06:16
Glucose 79 mg/dl (70-99) 03/24/24 06:16
Vital Signs and I&O:
Vital Signs
Temp Pulse Resp BP Pulse Ox
97.8 F 76 19 125/65 96
03/25/24 08:00 03/25/24 08:00 03/25/24 08:00 03/25/24 08:00 03/25/24 08:00
Vital Signs
Temp Pulse Resp BP Pulse Ox
97.8 F 76 19 125/65 96
03/25/24 08:00 03/25/24 08:00 03/25/24 08:00 03/25/24 08:00 03/25/24 08:00
Intake & Output
03/23/24 03/24/24 03/25/24 03/26/24
06:59 06:59 06:59 06:59
Intake Total 800 / 800 1020 / 1020 720 / 720
Output Total 800 / 800 400 / 400 900 / 900
Balance 0 / 0 620 / 620 -180 / -180
Physical Exam
Physical Exam
GEN: No distress, awake, Ox3
HEENT: supple, anicteric, mmm
LUNGS: CTA, no wheezes/rales
CV: Reg, S1/S2, 1/6 syst LSB, no gallop
ABD: soft, BS+, NT/ND
EXT: +1 edema
NEURO: Gross non-focal
SKIN: No rash
[2024-03-25 09:27] LABS: Blood Urea Nitrogen 21 mg/dl (7-17); Calcium 8.1 mg/dl (8.4-10.2); Carbon Dioxide 26 mmol/L (22-30); Chloride 109 mmol/L (98-107); Estimated Creatinine Clearance 34 ml/min; Glucose 103 mg/dl (70-99); Potassium 4.1 mmol/L (3.5-5.1); Sodium 139 mmol/L (135-145); eGFR 48.63
--- NOTE | 2024-03-25 11:27 | W.PN.GI.CBS2 ---
Today's Communication / Plan
-
DC planning
Assessment / Plan
-
88-year-old female with past medical history of CKD, aortic valve replacement, hx RYGB, left bundle branch block following aortic valve replacement, pacemaker, anemia of chronic disease, paroxysmal A-fib on Eliquis, hypothyroidism hemorrhagic
pericardial effusion with tamponade status post pericardiocentesis, sacral decubitus ulcer, hyperlipidemia, history of CVA, history of GI bleeding admitted with change in mental status and melena with concerns for hemodynamically unstable GI
bleeding.
Anemia, Melena-- likely small bowel bleed
s/p push entero and colon (small AVMs)
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
Hb today is stable no further overt bleeding on Eliquis
Recommendations:
- Regular diet
- Follow up CBC 1 week outpatient
- OK GI POV for discharge GI will sign off
- Should have outpatient GI follow up - likely best to follow up at [place] with history of small bowel AVM d/w pt
Subjective
Subjective
Date of Service: March 25, 2024
stool reported brown most recently
Objective
Data Reviewed
Laboratory Data:
Laboratory Results
03/25/24 08:50
03/25/24 08:50
Laboratory Results
Phosphorus 3.8 mg/dl (2.5-4.5) 03/24/24 06:16
Magnesium 2.1 mg/dl (1.6-2.3) 03/24/24 06:16
Total Bilirubin 0.3 mg/dl (0.2-1.3) 03/17/24 11:22
AST 68 U/L (14-36) H 03/17/24 11:22
ALT 56 U/L (0-35) H 03/17/24 11:22
Alkaline Phosphatase 75 U/L (38-126) 03/17/24 11:22
Vital Signs and I&O:
Vital Signs
Temp Pulse Resp BP Pulse Ox
97.8 F 76 19 125/65 98
03/25/24 08:00 03/25/24 08:00 03/25/24 08:00 03/25/24 08:00 03/25/24 09:14
I&O
03/24/24 03/25/24 03/26/24
06:59 06:59 06:59
Intake Total 1020 / 1020 720 / 720
Output Total 400 / 400 900 / 900
Balance 620 / 620 -180 / -180
Physical Exam
Physical Exam
GI: Non Distended and Non Tender
[2024-03-25] MEDS: LIPITOR 40 MG PO (21:59)
[2024-03-26 03:00] VITALS: BP 124/54
[2024-03-26] MEDS: SYNTHROID 150 MCG PO (05:57)
[2024-03-26 07:00] VITALS: BP 127/68
[2024-03-26] MEDS: OSCAL 500 + D 500 MG PO (08:15)
[2024-03-26] MEDS: ELIQUIS 5 MG PO (08:15)
[2024-03-26] MEDS: DITROPAN 5 MG PO (08:15)
[2024-03-26] MEDS: THERAGRAN 1 TABLET PO (08:15)
[2024-03-26] MEDS: NEURONTIN 300 MG PO (08:15)
[2024-03-26] MEDS: PROTONIX 40 MG PO (08:15)
[2024-03-26] MEDS: LASIX 20 MG PO (08:16)
[2024-03-26] MEDS: VITAMIN B-12 1000 MCG PO (08:19)
[2024-03-26] MEDS: MIRALAX 17 GRAMS PO (08:21)
[2024-03-26 10:05] LABS: Hematocrit 26.3 % (37.0-47.0); Hemoglobin 8.5 g/dL (12.0-16.0); Mean Corp Hgb Conc. 32.3 g/dL (33.0-37.0); Mean Corpuscular Hgb 29.6 pg (27.0-31.0); Mean Corpuscular Volume 91.6 fL (81.0-99.0); Mean Platelet Volume 9.5 fL (7.4-10.4); Platelet Count 162 10^3/uL (130-400); Red Blood Cell Count 2.87 10^6/uL (4.20-5.40); Red Cell Dist. Width 17.8 % (11.5-14.5); White Blood Cell Count 6.3 10^3/uL (4.8-10.8)
[2024-03-26 10:53] VITALS: BP 111/66
[2024-03-26 12:06] VITALS: BP 125/58; PULSE 142; PULSE 75; O2SAT 98
[2024-03-26 12:10] VITALS: BP 125/58; PULSE 112; PULSE 75
[2024-03-26 15:14] VITALS: BP 99/70
--- NOTE | 2024-03-26 15:27 | CM ---
Case management following for d/c planning
Chart reviewed. Spoke with pt
[facility] to follow at d/c
CM available for d/c needs
Plan - anticipate home with [facility] when medically stable
--- NOTE | 2024-03-26 16:17 | W.PN.HOSP.TC ---
Today's Communication/Plan
-
dc today
Assessment / Plan
Assessment / Plan
Syncope due to acute blood loss anemia (on chronic anemia) due to upper gastrointestinal bleeding exacerbated by Eliquis:
-h/o SB AVMs (was transferred to [place] in the past for SB-enteroscopy)
-Tolerating Eliquis
-Colonoscopy showed AVM as below. Hb remains stable after resuming anticoagulation. Discussed with granddaughter and son and they are comfortable discharging today with follow up of Hgb as outpt
-Hb improved s/p 2U pRBCs, cont to trend. Latest hemoglobin 9
-GI following
03/22 Colonoscopy:
Impression: - Three non-bleeding colonic angioectasias. Treated
with a monopolar probe.
- Diverticulosis in the sigmoid colon.
- Stool in the entire examined colon.
- No specimens collected.

03/19 EGD:
Impression: - Normal esophagus.
- Traci-en-Y gastrojejunostomy with gastrojejunal
anastomosis characterized by healthy appearing mucosa.
- No specimens collected.
Recommendation: - [facility].
- Monitor HH. Okay to resume eliquis. If hemoglobin
remains stable after resuming AC, recommend outpatient
VCE. If evidence of active GI bleeding, please obtain
stat CTA.

Other problems:
[id number]
Hypomagnesemia-repleted
Chronic, mild transaminitis
Hyperlipidemia: cont statin
h/o symptomatic orthostatic hypotension and chronic hypotension
Transcatheter aortic valve replacement 23mm Aquino KAE 3 on 07/01/22. On oral diuretics.
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
Anemia of chronic disease
Paroxysmal A-fib: Hold Eliquis. Might consider Watchman procedure as OP.
Hypothyroidism: cont Synthroid
h/o Right Distal Femur Fracture s/p Open Reduction Internal Fixation in January 2023
h/o Pneumonia with Parapneumonic Effusion requiring Thoracentesis in January 2023
h/o Hemorrhagic Pericardial effusion with Tamponade status post Pericardiocentesis in January 2023
Prior to admission wounds: Left heel pressure ulcer, Left heel unstageable in center, with ring of stage 2 vs 3 surrounding eschar
Sacral Stage 4 pressure ulcer
FULL/SCDs
dc to home
see dictated note
time 50 minutes
Anticipated Discharge: Today
Subjective/Interval History
-
Date of Service: March 26, 2024
Pt feels well and would like to go home today
Objective Data
-
Labs:
Laboratory Results
03/26/24
09:46
WBC 6.3
Hgb 8.5 L
Hct 26.3 L
Plt Count 162
Vital Signs:
Vital Signs
Temp Pulse Resp BP Pulse Ox
97.4 F 74 16 99/70 98
03/26/24 15:14 03/26/24 15:14 03/26/24 15:14 03/26/24 15:14 03/26/24 15:14
I&O
03/25/24 03/26/24 03/27/24
06:59 06:59 06:59
Intake Total 720 / 720 1080 / 1080
Output Total 900 / 900
Balance -180 / -180 1080 / 1080
Review of Systems
-
History Source: Patient and Family (reviewed with Mi beaver and pt's son Singh)
Constitutional: Reports Weakness
Respiratory: Reports No Symptoms
Cardiac: Reports Syncope
Abdomen/GI: Reports No Symptoms
Physical Exam
-
General: Well Developed
HEENT: Normocephalic
Respiratory: Clear to Auscultation
Cardiac: Regular Rhythm
GI: Soft and Nontender
Musculoskeletal: Normal Gait & Station
Skin: Warm
Neuro: Awake, Alert and Oriented
Psych: Calm
--- NOTE | 2024-03-26 19:09 | W.DCSUMMARY ---
Discharge Summary
Discharge Data
Date of Admission: 03/17/24
Date of Discharge: 03/26/24
-
Pending Results: No
Hospital Course
Patient 88 years old female history of paroxysmal A-fib, syncope, severe status post TAVR, recurrent CVA, hyperlipidemia, pericardial effusion status post pericardiocentesis in the past, anemia, symptomatic bradycardia with pacemaker, orthostatic
hypotension, CKD, presented to hospital with hypotension and melena. Patient received IV fluids. Hemoglobin noticed to be 7.1 from baseline of around 10.6. She was given blood transfusions. Oral anticoagulation with her Eliquis was placed on
hold. GI consulted. Cardiology consulted as well. Updated echocardiogram EF 55 to 60% and valvulopathy. Patient underwent EGD on 03/19 normal esophagus, Traci-en-Y gastrojejunostomy with gastrojejunal anastomosis healthy mucosa. Patient was
restarted on anticoagulation but she had recurrent anemia so anticoagulation was placed on hold again and she was prepped for colonoscopy. She had colonoscopy on 03/22 and she had 3 nonbleeding colonic angioectasias treated with a monopolar probe.
She was also seen with diverticulosis in the sigmoid colon. There were discussions if she were to bleed again she will need to be transferred to [facility] for VCE to assess for small bowel source of bleed but that was not necessary since patient
improved and hemoglobin remained stable. Her diet was advanced and she tolerated well. Recommended repeat colonoscopy as outpatient. Also recommended possible evaluation as outpatient to look out for small bowel source of bleed. Patient also had
stage IV sacral ulcer and this needs to be follow-up as outpatient very closely but this time she was afebrile and no signs of active infection but there is some cultures that grew some colonization of bacteria. Recommended to readdress after her
GI issues have been resolved and stable. I was not the discharge physician on 03/26 (Dr De Jesus was the physician covering for me) but I did saw her on 03/25 and I had discussions about discharge planning at the time. Patient had been discharged in
stable condition.
Discharge duration: 34 minutes
Discharge Plan
-
Patient Disposition: Home with Home Care
Discharge Diagnosis/Procedures: Gastrointestinal Bleed. Chronic kidney disease stage IIIb. Chronic diastolic congestive heart failure. Paroxysmal atrial fibrillation. Stage IV sacral pressure ulcer. Bilateral heel pressure ulcers as well.
Condition: Fair
Diet: Regular
Activity: With assistance
Driving Restrictions: No driving
Bathing Restrictions: None
Blood Work: CBC on 03/28 an 04/04, results to PCP (Dima Maldonado) and GI (Amira)
Other Services: VN
Activity Restrictions/Additional Instructions:
Wound Care Instructions
Sacrum: clean with saline, skin prep periwound, Mesalt ribbon packed into wound, cover with silicone foam daily.
Heels: skin prep and adhesive foam change q 2-3 days offload with pillow under calves
air mattress
Follow up at wound care center call for an appointment.
Referrals:
Dima Maldonado MD [Family Provider] - in less than 1 week
Mani Sales MD [Active] - in three to four weeks
Di Fernandes DO [Active] - in two to four weeks
Prescriptions:
New
pantoprazole 40 mg Tablet,Delayed Release (Dr/Ec)
40 mg PO DAILY Qty: 60 0RF
Continued
cyanocobalamin (vitamin B-12) 1,000 MCG tablet
1,000 mcg PO DAILY
oxybutynin chloride 5 mg Tablet
5 mg PO BID
gabapentin 300 mg capsule
300 mg PO BID
calcium carbonate-vitamin D3 [Calcium 600 + D(3)] 600 mg-10 mcg (400 unit) Tablet
1 tab PO DAILY Qty: 0
docusate sodium 100 mg capsule
100 mg PO BID
levothyroxine 150 MCG tablet
150 mcg PO DAILY Qty: 0 0RF
atorvastatin 40 mg Tablet
40 mg PO HS
sennosides [senna] 8.6 mg Tablet
8.6 mg PO HS
therapeutic multivitamin Tablet
1 tab PO DAILY
flaxseed oil 1,000 mg Capsule
1,000 mg PO HS
furosemide 20 mg Tablet
20 mg PO DAILY
omega 8-hju-hmh-fish oil [Fish Oil] 1,200 (144-216) mg Capsule
1 cap PO BID
Eliquis 5 mg Tablet
5 mg PO BID
Discharge Orders:
Discharge Patient (As Directed); Ordered 03/26/24
Ordered By: Timothy De Jesus
Discharge Date and Time
Discharge Date/Time: 03/26/24 17:00
Print Language: TAJIK
== END 2024-03-26 17:00 | disposition home health service (06) | DRG 813 ==
LOC: 3 WEST ACU 13:36
PROVIDERS: Hospitalist; Internal Medicine Gastroenterology; ADMITTING PHYSICIAN Internal Medicine; ATTENDING PHYSICIAN Internal Medicine; EMERGENCY PHYSICIAN Emergency Medicine; FAMILY PHYSICIAN Family Medicine; OTHER PHYSICIAN Internal Medicine; OTHER PHYSICIAN Internal Medicine Cardiovascular Disease
PROC: 30233N1 Transfusion of Nonautologous Red Blood Cells into Peripheral Vein, Percutaneous Approach (ICD-10-PCS; 2024-03-17)
PROC: 0DJ08ZZ Inspection of Upper Intestinal Tract, Via Natural or Artificial Opening Endoscopic (ICD-10-PCS; 2024-03-19)
PROC: 0W3P8ZZ Control Bleeding in Gastrointestinal Tract, Via Natural or Artificial Opening Endoscopic (ICD-10-PCS; 2024-03-22)
DX: D68.32 Hemorrhagic disorder due to extrinsic circulating anticoagulants (principal); K55.21 Angiodysplasia of colon with hemorrhage; L89.154 Pressure ulcer of sacral region, stage 4; L89.623 Pressure ulcer of left heel, stage 3; D62 Acute posthemorrhagic anemia; I13.0 Hypertensive heart and chronic kidney disease with heart failure and stage 1 through stage 4 chronic kidney disease, or unspecified chronic kidney disease; I50.32 Chronic diastolic (congestive) heart failure; D69.6 Thrombocytopenia, unspecified; D63.8 Anemia in other chronic diseases classified elsewhere; N18.32 Chronic kidney disease, stage 3b; Z95.3 Presence of xenogenic heart valve; E03.9 Hypothyroidism, unspecified; I44.1 Atrioventricular block, second degree; L89.619 Pressure ulcer of right heel, unspecified stage; K57.30 Diverticulosis of large intestine without perforation or abscess without bleeding; K64.8 Other hemorrhoids; T45.515A Adverse effect of anticoagulants, initial encounter; G47.33 Obstructive sleep apnea (adult) (pediatric); R74.01 Elevation of levels of liver transaminase levels; E78.5 Hyperlipidemia, unspecified; I95.1 Orthostatic hypotension; I44.7 Left bundle-branch block, unspecified; I48.0 Paroxysmal atrial fibrillation; I89.0 Lymphedema, not elsewhere classified; K21.9 Gastro-esophageal reflux disease without esophagitis; M48.00 Spinal stenosis, site unspecified; Z87.01 Personal history of pneumonia (recurrent); Z79.890 Hormone replacement therapy; Z79.899 Other long term (current) drug therapy; Z95.0 Presence of cardiac pacemaker; Z87.11 Personal history of peptic ulcer disease; Z87.81 Personal history of (healed) traumatic fracture; Z86.79 Personal history of other diseases of the circulatory system; Z86.73 Personal history of transient ischemic attack (TIA), and cerebral infarction without residual deficits; Z86.16 Personal history of COVID-19; Z98.0 Intestinal bypass and anastomosis status; Z98.84 Bariatric surgery status; Z88.0 Allergy status to penicillin; Z88.1 Allergy status to other antibiotic agents; Z96.653 Presence of artificial knee joint, bilateral
CPT/HCPCS: 80048; 80053; 81003; 81015; 83735; 84100; 85014; 85018; 85025; 85027; 86850; 86900; 86901; 86920; 93005; 93306; 96374; 97116; 97163; 97167; 97530; 97535; 99285; J2916; P9016

== ENCOUNTER 2024-03-31 11:50 | Emergency (ER) | payer OTHER, SELFPAY ==
[2024-03-31] VITALS (9 sets, daily range): BP systolic 110–142; BP diastolic 55–73; PULSE 70–75
--- NOTE | 2024-03-31 12:09 | ED.GENMED ---
History of Present Illness
General
Chief Complaint: Fainting/Passed Out
Source: patient
Time Seen by Provider: 03/31/24 11:58
History of Present Illness
History of Present Illness:
88-year-old female with past medical history of paroxysmal atrial fibrillation, severe aortic stenosis status post TAVR, status post permanent pacemaker placement, chronic kidney disease presenting to the emergency department via EMS after she had a
syncopal episode while reportedly getting helped into the shower by family. Patient states she has no recollection of the syncope or any symptoms leading up to the syncope. Patient currently stating she feels in her usual state of health and is
denying any chest pain, shortness of breath, abdominal pain, nausea, vomiting, bowel changes or urinary symptoms. It was noted that patient was recently admitted and discharged from this facility from March 17 to March 26 for GI bleeding. Patient
had her anticoagulation discontinued but due to continued drop in her hemoglobin was sent for colonoscopy where she had 3 nonbleeding colonic angioectasias that were treated with a monopolar probe. It was also noted that patient had a stage IV
sacral ulcer and was going to be following up with wound care as an outpatient. Patient believes she was restarted on her anticoagulation.
Past History
Past History
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
ED Past Surgical History: Bowel resection (Gastric bypass), Cardiac (TAVR), Cholecystectomy, Orthopedic (Bilateral knee replacement, ) and Other (Cataracts, Gastric bypas)
Social History
Tobacco: Non-smoker
Alcohol: None
Drug: None
Personal:
Living: with family (Resides with son)
Employment: Retired
Family History
Family History: Other (reviewed and Noncontributory)
Review of Systems
Review of Systems
All Other Systems: ROS reviewed and negative except as documented in HPI and ROS
Phy Exam
Physical Exam
Physical Exam:
GENERAL: Alert , in no apparent distress
EYE: Clear conjunctiva
NECK: Supple
ENT: o/p clr, mmm.
CARDIAC: Paced rate, normal rhythm, systolic murmur right second intercostal space
LUNGS: Clear breath sounds bilaterally, no acute respiratory distress, no wheezes/rales/rhonchi
ABDOMEN: Soft, without focal tenderness, no r/g, no cvat
NEUROLOGICAL: Alert and oriented
SKIN: Warm and dry
MUSCULOSKELETAL: No edema
PSYCH: Normal and appropriate interaction but somewhat flat affect
Scores
Heart Failure Risk
Heart Failure Risk Score: Not Applicable
Heart Score for Chest Pain Patients
STEMI patient?: Not applicable
Withdrawal Assessment of Alcohol
Withdrawal Assessment Completed?: Not applicable
Course
Orders/Labs/Results
Orders:
Orders
03/31/24 11:57
Electrocardiogram (*1) Urgent
Reason for Study: Chest Pain
EKG- Treatment ONCE
03/31/24 11:59
Complete Blood Count/With Diff Urgent
Comprehensive Metabolic Panel Urgent
Magnesium Urgent
03/31/24 12:07
Add On- LAB Urgent
Tests Added?: magnesium
03/31/24 12:36
Type+Screen Urgent
PTT Urgent
Prothrombin Time Urgent
03/31/24 14:08
Orthostatic VS- Treatment ONCE
Abnormal Lab Results
03/31/24 03/31/24
11:59 12:36
RBC 2.84 L 10^6/uL
(4.20-5.40)
Hgb 8.5 L g/dL
(12.0-16.0)
Hct 25.8 L %
(37.0-47.0)
MCHC 32.9 L g/dL
(33.0-37.0)
RDW 17.6 H %
(11.5-14.5)
Absolute Lymphs (auto) 1.0 L 10^3/uL
(1.2-3.4)
Immature Gran % 0.6 H %
(0-0.5)
Lymphocytes % 19.3 L %
(20.5-51.1)
PT 20.5 H Sec
(11.4-14.6)
APTT 37.7 H Sec
(23.4-35.0)
BUN 31 H mg/dl
(7-17)
Creatinine 1.1 H mg/dL
(0.6-1.0)
Glucose 105 H mg/dl
(70-99)
Calcium 8.0 L mg/dl
(8.4-10.2)
AST 85 H U/L
(14-36)
ALT 61 H U/L
(0-35)
Total Protein 5.9 L g/dl
(6.3-8.2)
Albumin 2.9 L g/dl
(3.5-5.0)
03/31/24 11:59
03/31/24 11:59
Vital Signs
Initial and Last Documented VS:
Initial Vital Signs
Pulse Resp BP Pulse Ox
70 20 110/55 99
03/31/24 11:51 03/31/24 11:51 03/31/24 11:51 03/31/24 11:51
Last Documented Vital Signs
Pulse Resp BP Pulse Ox
71 13 123/60 96
03/31/24 15:00 03/31/24 15:00 03/31/24 15:00 03/31/24 15:00
MDM/Problems Addressed
Differential Diagnosis Includes:
Recurring anemia secondary to GI bleed, deconditioning due to recent hospitalization, electrolyte disturbance, cardiac dysrhythmia
MDM/Problems Addressed:
88-year-old female presenting to the emergency department for evaluation after she had syncopal episode while family was helping her get into the shower. Patient does not recollect the events and last memory is getting into the shower. Currently
without any complaints. Recent discharge from this facility for GI bleed resulting in anemia status post transfusions. Will recheck labs. Patient has a Murphy permanent pacemaker so we will interrogate this for any signs of cardiac dysrhythmia.
Disposition pending
Chronic conditions affecting care: Arrhythmia and Other (GI bleeding)
*Pulse Oximetry
Patient hypoxic: no
*EKG
Interpreted by ED Provider?: Yes
Comparison EKG: no changes
Heart Rate: 75
Rate: normal
Rhythm: av sequential
*B[employer] Machine Helper Interpretation
Rate: normal
Rhythm: av sequential
*Critical Care Note
Total Time (30-74mins, 75-104mins- exclusive of procedures): Not Applicable
Data Reviewed
Review of Other/Old Records Reveals: Labs, Records and Discharge Summary
Comment
Comment:
Patient pacemaker interrogation without signs of any arrhythmia per [facility]
Patient Management
Escalation/DeEscalation of care consider admission/obs:
Patient's son in the emergency department and corroborates story of patient had gotten up from a chair and was using her walker to get to the shower chair and upon sitting in the shower chair noted felt like she was going to pass out and then
proceeded to with unresponsiveness for about 30 seconds. Patient has no recollection of this event. Son reports that patient had a similar episode not too long ago which was very similar and thought to be related to a drop in her blood pressure.
Patient's labs are all at her baseline from when she was discharged from the hospital 5 days ago. Both patient and son would prefer to be discharged home. Will check orthostatic vital signs and as long as patient is able to ambulate at her
baseline feel it would be reasonable for her to be discharged home.
Static vital signs noted. Patient continues to feel well and is in no acute distress. Both patient and son still feel comfortable with discharge home. They are aware of return precautions to the ER. Patient notes she has repeat blood work to
recheck her hemoglobin this coming Tuesday.
ED Attending Note
-
Portions of this chart may have been created with voice recognition software.� Occasional wrong word or��sound alike� substitutions may have occurred due to the inherent limitations of voice recognition software.
Discharge Plan
Departure
Patient Disposition: Home (Routine Discharge)
Date of Disposition: 03/31/24
Time of Disposition: 14:59
Patient with high blood pressure during this ER visit?: No
Discharge Problem:
Syncope
Instructions: Syncope (Fainting) (DC)
Prescriptions:
No Action
cyanocobalamin (vitamin B-12) 1,000 MCG tablet
1,000 mcg PO DAILY
oxybutynin chloride 5 mg Tablet
5 mg PO BID
gabapentin 300 mg capsule
300 mg PO BID
calcium carbonate-vitamin D3 [Calcium 600 + D(3)] 600 mg-10 mcg (400 unit) Tablet
1 tab PO DAILY Qty: 0
docusate sodium 100 mg capsule
100 mg PO BID
levothyroxine 150 MCG tablet
150 mcg PO DAILY Qty: 0 0RF
atorvastatin 40 mg Tablet
40 mg PO HS
sennosides [senna] 8.6 mg Tablet
8.6 mg PO HS
therapeutic multivitamin Tablet
1 tab PO DAILY
flaxseed oil 1,000 mg Capsule
1,000 mg PO HS
furosemide 20 mg Tablet
20 mg PO DAILY
omega 0-nml-mdc-fish oil [Fish Oil] 1,200 (144-216) mg Capsule
1 cap PO BID
Eliquis 5 mg Tablet
5 mg PO BID
pantoprazole 40 mg Tablet,Delayed Release (Dr/Ec)
40 mg PO DAILY Qty: 60 0RF
Referrals:
Dima Maldonado MD [Family Provider] -
Interventions
Interventions:
*Risk Screen - Suicide Last Done: 03/31/24 11:51
*General Assessment Last Done: 03/31/24 11:51
*Neglect/Abuse Screening Last Done: 03/31/24 11:51
*Nursing Disposition Last Done: 03/31/24 15:20
ED- Cardiac Assessment Last Done: 03/31/24 12:15
ED- Neurological Assessment Last Done: 03/31/24 12:15
Discharge Date and Time
Discharge Date/Time: 03/31/24 15:20
Print Language: SETSWANA
[2024-03-31 12:14] LABS: % Basophils 0.6 % (0-2); % Eosinophils 2.8 % (0-6); % Immature Granulocytes 0.6 % (0-0.5); % Lymphocytes 19.3 % (20.5-51.1); % Monocytes 7.6 % (1.7-9.3); % Neutrophils 69.1 % (42.2-75.2); Absolute Eosinophils 0.2 10^3/uL (0-0.7); Absolute Monocytes 0.4 10^3/uL (0.1-0.6); Absolute Neutrophils 3.7 10^3/uL (1.4-6.5); Hematocrit 25.8 % (37.0-47.0); Hemoglobin 8.5 g/dL (12.0-16.0); Mean Corp Hgb Conc. 32.9 g/dL (33.0-37.0); Mean Corpuscular Hgb 29.9 pg (27.0-31.0); Mean Corpuscular Volume 90.8 fL (81.0-99.0); Mean Platelet Volume 9.6 fL (7.4-10.4); Nucleated Red Blood Cells % 0 %; Platelet Count 191 10^3/uL (130-400); Red Blood Cell Count 2.84 10^6/uL (4.20-5.40); Red Cell Dist. Width 17.6 % (11.5-14.5); White Blood Cell Count 5.3 10^3/uL (4.8-10.8)
[2024-03-31 12:24] LABS: ALT (SGPT) 61 U/L (0-35); AST (SGOT) 85 U/L (14-36); Albumin 2.9 g/dl (3.5-5.0); Alkaline Phosphatase 73 U/L (38-126); Blood Urea Nitrogen 31 mg/dl (7-17); Carbon Dioxide 26 mmol/L (22-30); Chloride 104 mmol/L (98-107); Glucose 105 mg/dl (70-99); Sodium 135 mmol/L (135-145); Total Bilirubin 0.5 mg/dl (0.2-1.3); Total Protein 5.9 g/dl (6.3-8.2); eGFR 48.63
[2024-03-31 12:56] LABS: INR 1.77; PT 20.5 Sec (11.4-14.6)
[2024-03-31 12:57] LABS: APTT 37.7 Sec (23.4-35.0)
== END 2024-03-31 15:20 | disposition home or self-care (01) ==
LOC: EMR 11:50
PROVIDERS: Physician Assistant Medical; EMERGENCY PHYSICIAN Emergency Medicine; FAMILY PHYSICIAN Family Medicine
DX: R55 Syncope and collapse (principal); I48.0 Paroxysmal atrial fibrillation; I35.0 Nonrheumatic aortic (valve) stenosis; I12.9 Hypertensive chronic kidney disease with stage 1 through stage 4 chronic kidney disease, or unspecified chronic kidney disease; N18.9 Chronic kidney disease, unspecified; K21.9 Gastro-esophageal reflux disease without esophagitis; E78.00 Pure hypercholesterolemia, unspecified; E03.9 Hypothyroidism, unspecified; K55.20 Angiodysplasia of colon without hemorrhage; Z86.73 Personal history of transient ischemic attack (TIA), and cerebral infarction without residual deficits; Z90.49 Acquired absence of other specified parts of digestive tract; Z95.0 Presence of cardiac pacemaker; Z95.2 Presence of prosthetic heart valve; Z96.653 Presence of artificial knee joint, bilateral; Z98.84 Bariatric surgery status
CPT/HCPCS: 99283; 80053; 83735; 85025; 85610; 85730; 86850; 86900; 86901; 93005

== ENCOUNTER → 2024-04-04 13:36 | Outpatient (REF) | payer OTHER, SELFPAY ==
[2024-04-04 14:11] LABS: % Basophils 0.7 % (0-2); % Eosinophils 2.9 % (0-6); % Immature Granulocytes 0.5 % (0-0.5); % Lymphocytes 23.5 % (20.5-51.1); % Monocytes 9.4 % (1.7-9.3); Absolute Eosinophils 0.2 10^3/uL (0-0.7); Absolute Lymphocytes 1.3 10^3/uL (1.2-3.4); Absolute Monocytes 0.5 10^3/uL (0.1-0.6); Absolute Neutrophils 3.5 10^3/uL (1.4-6.5); Hematocrit 21.4 % (37.0-47.0); Mean Corp Hgb Conc. 32.7 g/dL (33.0-37.0); Mean Corpuscular Hgb 29.9 pg (27.0-31.0); Mean Corpuscular Volume 91.5 fL (81.0-99.0); Nucleated Red Blood Cells % 0 %; Platelet Count 225 10^3/uL (130-400); Red Blood Cell Count 2.34 10^6/uL (4.20-5.40); Red Cell Dist. Width 17.9 % (11.5-14.5); White Blood Cell Count 5.6 10^3/uL (4.8-10.8)
== END ==
LOC: RAD 13:36
PROVIDERS: ATTENDING PHYSICIAN Family Medicine
DX: S40.012A Contusion of left shoulder, initial encounter (principal)
CPT/HCPCS: 36415; 73030; 85025

== ENCOUNTER 2024-04-04 20:27 | Inpatient (IN) | payer OTHER, SELFPAY ==
[2024-04-04] VITALS (16 sets, daily range): BP systolic 96–148; BP diastolic 49–105; BMI 30.5; BMI 28.1
--- NOTE | 2024-04-04 16:33 | ED.GENMED ---
History of Present Illness
General
Chief Complaint: Abnormal Lab Value
Source: patient and family (Daughter)
Exam Limitations: none
Time Seen by Provider: 04/04/24 15:41
Nursing documentation reviewed up to this point in time: agreed with
History of Present Illness
History of Present Illness:
88-year-old female with past medical history as documented notable for A-fib on Eliquis who presents to the emergency room sent in by her PCP for evaluation of anemia and bloody stools. Patient was notably seen in this emergency room and admitted
03/17/2024 until 03/26/2024 for melena and acute blood loss anemia requiring transfusion. During that admission she underwent EGD 03/19/2024 with no clear source of bleeding identified. Anticoagulant had been held and then resumed anticoagulant she
once again had GI bleeding and so she was prepped and had colonoscopy 03/22/2024; noted to have 3 nonbleeding angiectasia's as well as diverticulosis. There was discussion about potential transfer to [place] for capsule endoscopy to assess for
small bowel bleeding but hemoglobin ultimately stabilized and she was discharged. She returned to the emergency room 03/31/2024 after syncopal event; she had acceptable hemoglobin at that time ultimately discharged. Today she had a follow-up
appoint with her primary care physician had repeat blood work drawn which showed another drop in her hemoglobin with hemoglobin of 7 today (decreased from 8.5 four days ago). She was referred back to the emergency room. Patient has noted
occasional dark stools since discharge but nothing consistent; today she did have some bright red blood mixed in with her stool but stool was mostly brown. She reports fatigue denies any shortness of breath or dizziness. Denies any chest pain.
She is still on Eliquis.
Past History
Past History
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
ED Past Surgical History: Bowel resection (Gastric bypass), Cardiac (TAVR), Cholecystectomy, Orthopedic (Bilateral knee replacement, ) and Other (Cataracts, Gastric bypas)
Social History
Tobacco: Non-smoker
Alcohol: None
Drug: None
Personal:
Living: with family (Resides with son)
Employment: Retired
Family History
Family History: Other (reviewed and Noncontributory)
Review of Systems
Review of Systems
All Other Systems: ROS reviewed and negative except as documented in HPI and ROS
Constitutional: Reports fatigue; Denies fever or chills
Respiratory: Denies cough or trouble breathing
Cardiac: Denies chest pain, palpitations or syncope
ABD/GI: Reports bloody stools and black stools; Denies abdominal pain, nausea, vomiting or diarrhea
: Denies flank pain
Musculoskeletal: Denies neck pain or back pain
Neurological: Denies dizzy or headache
Phy Exam
Physical Exam
Physical Exam:
General: Awake, alert, oriented x3; no acute distress
Head: Normocephalic, atraumatic
Eyes: Conjunctiva normal
Throat: Airway intact, handling secretions
Neck: Trachea midline
Lungs: Clear to auscultation bilaterally, no wheezing, rales, rhonchi
Heart: Regular rate and rhythm, systolic murmur
Abd: Soft, non distended, nontender
Rectal: Brown stool no bright red blood noted, Hemoccult negative
Neuro: No gross deficit
Skin: Somewhat pale, sacral wound
Extremities: Bilateral lower extremity edema, extremities are warm and well-perfused
Scores
Heart Failure Risk
Heart Failure Risk Score: Not Applicable
Heart Score for Chest Pain Patients
STEMI patient?: Not applicable
Withdrawal Assessment of Alcohol
Withdrawal Assessment Completed?: Not applicable
Course
Orders/Labs/Results
Orders:
Orders
04/04/24 16:10
* Blood Bank Products Urgent
Blood Bank Products: *Packed RBC Leuko(PRBC's)
Quantity: 2
Transfuse Today: Yes
Reason: Anemia
04/04/24 16:37
Type+Screen Urgent
Complete Blood Count/With Diff Urgent
Comprehensive Metabolic Panel Urgent
PTT Urgent
Prothrombin Time Urgent
04/04/24 17:12
Pantoprazole [Protonix IV] 80 mg IV NOW STA
Abnormal Lab Results
04/04/24
16:37
RBC 2.28 L 10^6/uL
(4.20-5.40)
Hgb 6.8 L* g/dL
(12.0-16.0)
Hct 21.0 L %
(37.0-47.0)
MCHC 32.4 L g/dL
(33.0-37.0)
RDW 17.8 H %
(11.5-14.5)
Absolute Monos (auto) 0.7 H 10^3/uL
(0.1-0.6)
Monocytes % 11.1 H %
(1.7-9.3)
PT 19.4 H Sec
(11.4-14.6)
APTT 44.0 H Sec
(23.4-35.0)
BUN 37 H mg/dl
(7-17)
Creatinine 1.1 H mg/dL
(0.6-1.0)
Glucose 115 H mg/dl
(70-99)
Calcium 8.0 L mg/dl
(8.4-10.2)
AST 74 H U/L
(14-36)
ALT 52 H U/L
(0-35)
Total Protein 5.9 L g/dl
(6.3-8.2)
Albumin 3.0 L g/dl
(3.5-5.0)
Crossmatch IS Only See Detail
04/04/24 16:37
08/14/24 16:37
Vital Signs
Initial and Last Documented VS:
Initial Vital Signs
Temp Pulse Resp BP Pulse Ox
37.1 C 71 16 125/49 99
04/04/24 14:54 04/04/24 14:54 04/04/24 14:54 04/04/24 14:54 04/04/24 14:54
Last Documented Vital Signs
Temp Pulse Resp BP Pulse Ox
36.7 C 70 18 107/60 98
04/04/24 18:46 04/04/24 18:46 04/04/24 18:46 04/04/24 18:46 04/04/24 18:46
MDM/Problems Addressed
Differential Diagnosis Includes:
Upper GI bleed, lower GI bleed
MDM/Problems Addressed:
88-year-old female returns to the emergency room with anemia�had recent admission for GI bleeding and anemia requiring multiple blood transfusions; EGD and colonoscopy at that time nondiagnostic ultimately hemoglobin stabilized and was discharged
home but has had intermittent bleeding since and once again drop in hemoglobin today. Vital signs normal. Exam as above�notably brown stool on rectal today Hemoccult was negative. Plan to place an IV check labs including a CBC and a CMP, type and
screen, coags. Transfuse PRBCs as needed�patient consented. With stable hemodynamics and no blood on rectal at present we will hold on anticoagulant reversal with Kcentra but would be prudent to hold patient's Eliquis for the time being. Will
discuss case with GI pending initial evaluation--previously there were plans for transfer to [place] for capsule endoscopy.
Labs reviewed: CBC shows hemoglobin 6.8. CMP shows mild CASSY with creatinine 1.1, elevated BUN of 37. Marginal transaminitis. Ordered for 2 units of PRBCs. Will treat with PPI. Case discussed with GI and recommended discussion with [place] for
transfer for possible video capsule endoscopy given continued drop in hemoglobin.
Discussed case with transfer center at [place] and discussed directly with GI physician. They feel patient warrants repeat endoscopy/colonoscopy here at [place] prior to transferring for video capsule endoscopy. I called [facility]
and discussed with the GI physician there who also felt at least colonoscopy warrants a repeat given prior finding of angioectasias. Updated GI. Will admit here for transfusion and trending of hemoglobins and GI consultation. Case discussed with
hospitalist for admission.
Chronic conditions affecting care:
A-fib on Eliquis complicates GI bleeding
*Pulse Oximetry
Patient hypoxic: no
*Critical Care Note
Total Time (30-74mins, 75-104mins- exclusive of procedures): Not Applicable
Data Reviewed
Review of Other/Old Records Reveals: Labs, Records, Testing and Discharge Summary
Source: patient, records and family
Prescriptions/Medications Considered But Not Given:
Considered treating with Génesis as above
Patient Management
Discussion with other providers: Hospitalist (Discussed with hospitalist) and Solutions Consultant (Discussed with GI)
Escalation/DeEscalation of care consider admission/obs:
Admission indicated
ED Attending Note
-
Portions of this chart may have been created with voice recognition software.� Occasional wrong word or��sound alike� substitutions may have occurred due to the inherent limitations of voice recognition software.
Discharge Plan
Departure
Patient Disposition: Admit
Date of Disposition: 04/04/24
Time of Disposition: 19:29
Admit to doctor: Gavin
Presentation/result/management discussed w/ accepting MD/DO: Hospitalist
Discharge Problem:
Acute blood loss anemia
Prescriptions:
No Action
cyanocobalamin (vitamin B-12) 1,000 MCG tablet
1,000 mcg PO DAILY
oxybutynin chloride 5 mg Tablet
5 mg PO BID
gabapentin 300 mg capsule
300 mg PO BID
calcium carbonate-vitamin D3 [Calcium 600 + D(3)] 600 mg-10 mcg (400 unit) Tablet
1 tab PO DAILY Qty: 0
docusate sodium 100 mg capsule
100 mg PO BID
levothyroxine 150 MCG tablet
150 mcg PO DAILY Qty: 0 0RF
atorvastatin 40 mg Tablet
40 mg PO HS
sennosides [senna] 8.6 mg Tablet
8.6 mg PO HS
therapeutic multivitamin Tablet
1 tab PO DAILY
flaxseed oil 1,000 mg Capsule
1,000 mg PO HS
furosemide 20 mg Tablet
20 mg PO DAILY
omega 2-kfd-pll-fish oil [Fish Oil] 1,200 (144-216) mg Capsule
1 cap PO BID
Eliquis 5 mg Tablet
5 mg PO BID
pantoprazole 40 mg Tablet,Delayed Release (Dr/Ec)
40 mg PO DAILY Qty: 60 0RF
Referrals:
Dima Maldonado MD [Family Provider] -
Interventions
Interventions:
*Risk Screen - Suicide Last Done: 04/04/24 14:54
*General Assessment Last Done: 04/04/24 16:51
*Neglect/Abuse Screening Last Done: 04/04/24 14:54
ED- Fall Risk Assessment Last Done: 04/04/24 14:54
*ED COVID-19 Vaccine History Last Done: 04/04/24 16:51
Discharge Date and Time
Print Language: ZAMBIAN
[2024-04-04 17:02] LABS: % Basophils 0.3 % (0-2); % Eosinophils 3.8 % (0-6); % Immature Granulocytes 0.2 % (0-0.5); % Lymphocytes 24.5 % (20.5-51.1); % Monocytes 11.1 % (1.7-9.3); % Neutrophils 60.1 % (42.2-75.2); Absolute Eosinophils 0.2 10^3/uL (0-0.7); Absolute Lymphocytes 1.4 10^3/uL (1.2-3.4); Absolute Monocytes 0.7 10^3/uL (0.1-0.6); Absolute Neutrophils 3.5 10^3/uL (1.4-6.5); Hemoglobin 6.8 g/dL (12.0-16.0); Mean Corp Hgb Conc. 32.4 g/dL (33.0-37.0); Mean Corpuscular Hgb 29.8 pg (27.0-31.0); Mean Corpuscular Volume 92.1 fL (81.0-99.0); Mean Platelet Volume 10.2 fL (7.4-10.4); Nucleated Red Blood Cells % 0 %; Platelet Count 221 10^3/uL (130-400); Red Blood Cell Count 2.28 10^6/uL (4.20-5.40); Red Cell Dist. Width 17.8 % (11.5-14.5); White Blood Cell Count 5.8 10^3/uL (4.8-10.8)
[2024-04-04 17:05] LABS: INR 1.62; PT 19.4 Sec (11.4-14.6)
[2024-04-04 17:12] LABS: ALT (SGPT) 52 U/L (0-35); AST (SGOT) 74 U/L (14-36); Alkaline Phosphatase 80 U/L (38-126); Blood Urea Nitrogen 37 mg/dl (7-17); Carbon Dioxide 26 mmol/L (22-30); Chloride 105 mmol/L (98-107); Estimated Creatinine Clearance 34 ml/min; Glucose 115 mg/dl (70-99); Potassium 4.3 mmol/L (3.5-5.1); Sodium 136 mmol/L (135-145); Total Bilirubin 0.6 mg/dl (0.2-1.3); Total Protein 5.9 g/dl (6.3-8.2); eGFR 48.63
[2024-04-04] MEDS: PROTONIX IV 80 MG IV (17:32)
--- NOTE | 2024-04-04 20:01 | HPS.HSE ---
Family Physician
-
Family Physician: Dima Maldonado
Chief Complaint
-
Anemia
History of Present Illness
Patient is an 88y F with PMH significant for paroxysmal A-Fib, prior CVA, hypertension and recent issues with GI blood loss and anemia who presents to ED for evaluation of worsened anemia. Patient was hospitalized at from 03/17 - 03/26 for
anemia and GI bleeding. Colonoscopy done 03/22 showed 3 non-bleeding angioectasias. EGD done 03/19 showed Traci-en-Y anatomy with normal mucosa. There was discussion for possible capsule endoscopy for further evaluation. Luisa was of course held
during that admission.
Patient was seen again here at the ED on Tuesday after a syncopal event at home. She was found to have lost consciousness while family was helping her into the shower. Son notes that she had had a large, dark BM earlier that day. Patient was
evaluated in the ED where Hgb appeared stable and she was asymptomatic. She was discharged to home and states that she has been feeling fairly well since that time.
Today she was seen in follow-up by her PCP and her Hgb was 7 - decreased from discharged value of 8.5.
Patient was referred to the ED for further evaluation.
Patient denies any complaints at present. Son states that she had only a that single dark stool on Tuesday. BM since then have been brown and formed.
Yesterday her aid noted some streaks of red blood along outside of the stools.
Medical History
Past Medical History
Past Medical History: Reports Other
Additional Past Medical History:
Right Distal Femur Fracture
Pneumonia with Parapneumonic Effusion requiring Thoracentesis
Hemorrhagic Pericardial effusion with Tamponade s/p Pericardiocentesis in January 2023
Paroxysmal Atrial Fibrillation
Bradycardia/Heart Block s/p Pacemaker
Aortic Stenosis s/p TAVR
Syncope
Chronic Hypotension
CKD Stage III
Chronic Anemia
Hypothyroidism
Recurrent GI Bleeding
Obesity s/p Gastric Bypass
CVA (2020)
Past Surgical History: Reports Other
Additional Past Surgical History:
Right Femur ORIF
Bilateral Total Knee Replacement
TAVR
Gastric Bypass
Social History
Tobacco: Non-smoker
Drug: None
Personal: Single
Living: With Family
Employment: Retired
Family History
Family History: Not pertinent
Allergies / Home Medications
Allergies reflects when Allergies were last updated in [facility].
Home Medications with original date entered in [facility]
Allergy/Medication List:
Allergies
Allergy/AdvReac Type Severity Reaction Status Date / Time
erythromycin base Allergy Unknown Verified 04/04/24 14:54
Penicillins Allergy skin rxn Verified 04/04/24 14:54
after
'shots';Tolerated
cephalosporins,
Amoxicillin
Home Medications
cyanocobalamin (vitamin B-12) 1,000 mcg tablet 1,000 mcg PO DAILY Supplement 07/25/21
oxybutynin chloride 5 mg tablet 5 mg PO BID Urinary issue 04/28/22
calcium carbonate 600 mg-vitamin D3 10 mcg (400 unit) tablet (Calcium 600 + D(3)) 1 tab PO DAILY Supplement ##0 02/11/23
gabapentin 300 mg capsule 300 mg PO BID Pain 02/11/23
docusate sodium 100 mg capsule 100 mg PO BID Constipation 02/24/23
levothyroxine 150 mcg tablet 150 mcg PO DAILY Thyroid #0 tabs 03/03/23
apixaban 5 mg tablet (Eliquis) 5 mg PO BID Blood Clot Prevention/Tx 03/17/24
atorvastatin 40 mg tablet 40 mg PO HS High Cholesterol 03/17/24
flaxseed oil 1,000 mg capsule 1,000 mg PO HS Supplement 03/17/24
furosemide 20 mg tablet 20 mg PO DAILY Fluid Retention/Swelling 03/17/24
omega 2-bmo-ywu-fish oil 1,200 mg (144 mg-216 mg) capsule (Fish Oil) 1 cap PO BID Supplement 03/17/24
sennosides 8.6 mg tablet (senna) 8.6 mg PO DAILY Constipation 03/17/24
therapeutic multivitamin 1 tab PO DAILY Supplement 03/17/24
pantoprazole 40 mg tablet,delayed release 40 mg PO HS 04/04/24
Review of Systems
-
History Source: Patient
A 12 point ROS was completed and negative except as noted: Yes
Constitutional: Denies Fever, Fatigue or Chills
Respiratory: Denies Cough or Trouble Breathing
Cardiac: Denies Chest Pain or Palpitations
Abdomen/GI: Reports Bloody Stools and Black Stools; Denies Abdominal Pain, Nausea, Vomiting or Diarrhea
: Denies Dysuria, Frequency or Flank Pain
Musculoskeletal: Reports Edema; Denies Joint Pain
Neurological: Denies Dizzy or Headache
Psych: Denies Depression or Anxiety
Physical Exam
Vital Signs
Vital Signs
Temp Pulse Resp BP Pulse Ox
98.0 F 70 12 126/60 99
04/04/24 18:46 04/04/24 19:30 04/04/24 19:30 04/04/24 19:00 04/04/24 19:30
Physical Exam
General: Other (88y F in no acute distress. )
HEENT: Moist mucous membranes and PERRLA
Respiratory: Clear; No Wheezes, Rales or Rhonchi
Cardiac: S1/S2, Regular Rhythm and Murmur (II/ CAROLINE)
GI: Soft, Non Tender, Non Distended and Normal Bowel Sounds
Musculoskeletal: No Clubbing, No Cyanosis and Other (Chronic LE lymphedema and stasis skin changes. No pitting edema or induration.)
Neuro: AO x 3
Laboratory Results
-
04/04/24 16:37
04/04/24 16:37
Laboratory Results
PT 19.4 Sec (11.4-14.6) H 04/04/24 16:37
INR 1.62 04/04/24 16:37
APTT 44.0 Sec (23.4-35.0) H 04/04/24 16:37
Total Bilirubin 0.6 mg/dl (0.2-1.3) 04/04/24 16:37
AST 74 U/L (14-36) H 04/04/24 16:37
ALT 52 U/L (0-35) H 04/04/24 16:37
Alkaline Phosphatase 80 U/L (38-126) 04/04/24 16:37
Impression/Plan
-
A/P: Patient is an 88y F with PMH significant for PA-Fib, HTN, chronic anemia and recent GI bleeding who presents to ED for evaluation of worsened anemia.
Acute Blood Loss Anemia on Chronic Anemia
GI Bleeding
- Admit to monitored bed for further evaluation and treatment.
- Hold Eliquis again.
- Transfusion ordered in the ED.
- Follow H&H and provide additional PRBCs as needed.
- GI re-evaluation.
- Patient will likely ultimately require VCE as no evident source has been discovered on endoscopic examinations thus far.
- Currently hemodynamically stable.
Paroxysmal Atrial Fibrillation
Prior CVA
- Paced rhythm at present.
- Patient does report prior history of stroke, making Eliquis issue all the more difficult.
- Hold for now. If no clear source of bleeding can be discovered, may need to consider cessation altogether.
CKD III
- Stable. SCr is at / near known baseline.
- Follow for any changes.
Chronic Lymphedema
- Stable. Continue compression / SCDs.
- Continue current Lasix dosing.
Hypothyroidism
- Stable. Continue current T4 supplementation.
Aortic Stenosis s/p TAVR
LBBB
- Stable. No acute issues.
DVT Prophylaxis: SCDs
Code Status: Full
[2024-04-04] MEDS: LIPITOR 40 MG PO (22:25)
[2024-04-04] MEDS: NEURONTIN 300 MG PO (22:25)
[2024-04-04 23:19] LABS: Hematocrit 22.9 % (37.0-47.0); Hemoglobin 7.8 g/dL (12.0-16.0)
[2024-04-05] VITALS (9 sets, daily range): BP systolic 110–139; BP diastolic 49–61; PULSE 74–76; O2SAT 96–97; BMI 28.1
[2024-04-05 06:20] LABS: Hematocrit 26.2 % (37.0-47.0); Hemoglobin 9.1 g/dL (12.0-16.0); Mean Corp Hgb Conc. 34.7 g/dL (33.0-37.0); Mean Corpuscular Volume 89.1 fL (81.0-99.0); Mean Platelet Volume 9.7 fL (7.4-10.4); Platelet Count 197 10^3/uL (130-400); Red Blood Cell Count 2.94 10^6/uL (4.20-5.40); Red Cell Dist. Width 17.2 % (11.5-14.5); White Blood Cell Count 5.7 10^3/uL (4.8-10.8)
[2024-04-05] MEDS: SYNTHROID 150 MCG PO (06:22)
[2024-04-05 06:41] LABS: Blood Urea Nitrogen 31 mg/dl (7-17); Calcium 8.1 mg/dl (8.4-10.2); Carbon Dioxide 27 mmol/L (22-30); Chloride 106 mmol/L (98-107); Estimated Creatinine Clearance 36 ml/min; Glucose 84 mg/dl (70-99); Sodium 136 mmol/L (135-145); eGFR 54.53
--- NOTE | 2024-04-05 07:13 | CON.GI ---
Addendum entered and electronically signed by Camryn Mcnair MD 04/05/24 15:55:
I saw and examined the patient.
The DIE TRIMMER's note was reviewed and I agree with the note.
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
recently admitted from 03/17-03/26 for acute blood loss anemia with GI bleed she had an enteroscopy and colonoscopy with Dr. Mitchell enteroscopy was unremarkable with no evidence of anastomotic ulcers and colonoscopy showed 3 nonbleeding colonic
angioectasias in the ascending colon which were treated diverticulosis also noted. She had a hemoglobin of 8.5 on 03/31 now presents with a hemoglobin of 6.8 and had an episode of syncope on Tuesday and melena on Tuesday and presented to the ER
but since she had no further bleeding and hemoglobin was stable she was discharged home she then had outpatient labs and her hemoglobin yesterday was 6.8 and she was referred to the ER. At discharge during her recent admission plan was to send her
to [place] for a capsule endoscopy or double-balloon enteroscopy to treat small bowel angioectasias if she rebled. Unfortunately [facility] had not accepted her in transfer last night Dr. Dimas also tried calling [facility] and they also did not accept
her in transfer and wanted her to get repeat endoscopic workup here prior to transfer. Hemoglobin has improved status post 2 units to 9.1 and she has not had any further episodes of melena today.
Assessment and plan recurrent GI bleed (melena on Tuesday none since then) with acute blood loss anemia most likely related to known small bowel angioectasias and also colonic angioectasias. Hemoglobin responded appropriately to 2 units of packed
red blood cells, hold Eliquis. unfortunately patient was not accepted in transfer last night when the ER Dr. Dimas called [facility] and [facility]. If she does rebleed would get a stat CT angiogram and consider repeat enteroscopy with Dr. North here to
possibly treat the jejunal angioectasias and if that also does not control the bleeding then may need repeat colonoscopy to treat her colonic angioectasias. She also had multiple small polyps seen throughout the colon on recent colonoscopy but
polypectomy was not attempted given acute GI bleed and given her age and comorbidities would hold off on repeat colonoscopy for polypectomy at this time.
Addendum entered and electronically signed by CURT Stokes 04/05/24 10:24:
Pt also with some chronic AST/ALT elevation etiology fatty liver vs other-- US 08/2023 with fatty liver, prior becky, will check hepatitis panel-
Original Note:
Consultation
-
Date/Time Consultation Requested: 04/04/242044
Date/Time Consultation Performed: 04/05/24 0800
Requesting Provider: Selwyn Alonso DO
Performing Provider: CURT Mario, Camryn Mcnair MD
Reason for Consultation: GI bleed
Medical History
Chief Complaint / HPI
Chief Complaint: GI bleed
History of Present Illness:
Pt is an 88-year-old female with past medical history of CKD, jaime n y for obesity, aortic valve replacement, left bundle branch block following aortic valve replacement, pacemaker, anemia of chronic disease, prior GI bleeding 2017 required single
balloon antrograde balloon for treatment of jejunal AVM and noted ulceration , paroxysmal A-fib on Eliquis, hypothyroidism hemorrhagic pericardial effusion with tamponade status post pericardiocentesis, sacral decubitus ulcer, hyperlipidemia,
history of CVA, history of GI bleeding with recent admission 03/17 til 03/26 with GI bleeding. she complete 03/19 SB enteroscopy with stable jaime n y gastrojejunostomy with healthy anastomosis and 03/22 colonoscopy with 3 non bleeding colon angiectasias
treated with monopolar probe, diverticulosis and stool in colon. She was discharged 03/26 with hbg 8.5 but note with period of syncope last Tuesday and further drop of hbg to 6.8 and asked to evaluate. In reviewing with granddaughter noted with
brown stools with streaks of blood. She is also noted with progressive weakness since discharged.
she currently admits to occasional diarrhea but denies odynophagia, dysphagia, GERD, nausea, vomiting, abdominal pain, constipation or black stools.
Past Medical History
Past Medical History: Other (CVA, afib, AVR, sacral decubitus ulcer, GI bleeding, Anemia, pericardia effusion, hypothyroidism)
Past Surgical History: Other (pericardiocentesis, RYGB)
Social History
Tobacco: Non-Smoker
Alcohol: None
Drug: None
Living: With Family
Family History
Family History: Reviewed & Not Pertinent
Allergies / Home Medications
Allergy/AdvReac Type Severity Reaction Status Date / Time
erythromycin base Allergy Unknown Verified 04/04/24 14:54
Penicillins Allergy skin rxn Verified 04/04/24 14:54
after
'shots';Tolerated
cephalosporins,
Amoxicillin
�Medication �Instructions �Recorded
cyanocobalamin (vitamin B-12) 1,000 mcg PO DAILY Supplement 07/25/21
1,000 mcg tablet
oxybutynin chloride 5 mg tablet 5 mg PO BID Urinary issue 04/28/22
calcium carbonate 600 mg-vitamin 1 tab PO DAILY Supplement ##0 02/11/23
D3 10 mcg (400 unit) tablet
(Calcium 600 + D(3))
gabapentin 300 mg capsule 300 mg PO BID Pain 02/11/23
docusate sodium 100 mg capsule 100 mg PO BID Constipation 02/24/23
levothyroxine 150 mcg tablet 150 mcg PO DAILY Thyroid #0 tabs 03/03/23
apixaban 5 mg tablet (Eliquis) 5 mg PO BID Blood Clot 03/17/24
Prevention/Tx
atorvastatin 40 mg tablet 40 mg PO HS High Cholesterol 03/17/24
flaxseed oil 1,000 mg capsule 1,000 mg PO HS Supplement 03/17/24
furosemide 20 mg tablet 20 mg PO DAILY Fluid 03/17/24
Retention/Swelling
omega 9-hjs-wmq-fish oil 1,200 mg 1 cap PO BID Supplement 03/17/24
(144 mg-216 mg) capsule (Fish Oil)
sennosides 8.6 mg tablet (senna) 8.6 mg PO DAILY Constipation 03/17/24
therapeutic multivitamin 1 tab PO DAILY Supplement 03/17/24
pantoprazole 40 mg tablet,delayed 40 mg PO HS 04/04/24
release
Review of Systems
-
History Source: Patient and Family
Constitutional: Reports Weight Loss (few lbs )
EENT: Reports No Symptoms
Respiratory: Reports No Symptoms
Cardiac: Reports Syncope
Abdomen/GI: Reports Bloody Stools (brown with streaks of blood)
: Reports No Symptoms
Musculoskeletal: Reports No Symptoms
Skin: Reports No Symptoms
Neurological: Reports Weakness
Hematologic/Lymphatic: Reports Bleeding
Vital Signs
Temp Pulse Resp BP Pulse Ox
98.6 F 71 16 139/57 98
04/05/24 03:13 04/05/24 03:13 04/05/24 03:13 04/05/24 03:13 04/05/24 03:13
Physical Exam
Exam
General: Well Developed, Well Nourished and No Apparent Distress
HEENT: Normocephalic and Anicteric
Respiratory: Clear
Cardiac: Regular Rhythm
GI: Soft, Non Tender and Non Distended
Musculoskeletal: No Clubbing and No Cyanosis
Skin: Warm and Dry
Neuro: Awake, Alert and AO x 3
Psych: Calm
Results
WBC 5.7 10^3/uL (4.8-10.8) 04/05/24 05:39
Hgb 9.1 g/dL (12.0-16.0) L 04/05/24 05:39
Hct 26.2 % (37.0-47.0) L 04/05/24 05:39
MCV 89.1 fL (81.0-99.0) 04/05/24 05:39
Plt Count 197 10^3/uL (130-400) 04/05/24 05:39
Absolute Neuts (auto) 3.5 10^3/uL (1.4-6.5) 04/04/24 16:37
PT 19.4 Sec (11.4-14.6) H 04/04/24 16:37
INR 1.62 04/04/24 16:37
APTT 44.0 Sec (23.4-35.0) H 04/04/24 16:37
Sodium 136 mmol/L (135-145) 04/05/24 05:39
Potassium 4.0 mmol/L (3.5-5.1) 04/05/24 05:39
Chloride 106 mmol/L (98-107) 04/05/24 05:39
Carbon Dioxide 27 mmol/L (22-30) 04/05/24 05:39
BUN 31 mg/dl (7-17) H 04/05/24 05:39
Creatinine 1.0 mg/dL (0.6-1.0) 04/05/24 05:39
Calcium 8.1 mg/dl (8.4-10.2) L 04/05/24 05:39
Total Bilirubin 0.6 mg/dl (0.2-1.3) 04/04/24 16:37
AST 74 U/L (14-36) H 04/04/24 16:37
ALT 52 U/L (0-35) H 04/04/24 16:37
Alkaline Phosphatase 80 U/L (38-126) 04/04/24 16:37
Diagnostic Image Results:
Prior GI Procedures:
EGD: 03/19/2024 Mitchell - Normal esophagus.
- Jaime-en-Y gastrojejunostomy with gastrojejunal
anastomosis characterized by healthy appearing mucosa.
- No specimens collected.
Colonoscopy: 03/22/2024 Morteza - Three non-bleeding colonic angioectasias. Treated
with a monopolar probe.
- Diverticulosis in the sigmoid colon.
- Stool in the entire examined colon.
- No specimens collected.
-EGD 11/24/2016: Normal esophagus. Evidence of Jaime-en-Y gastric bypass.
-Colonoscopy 11/24/2016: Sigmoid diverticulosis. Internal hemorrhoids.
-EGD 04/05/2017, Dr. Fernandes: Evidence of Jaime-en-Y gastrojejunostomy. The pouch appeared healthy. Patch to jejunum limb was characterized by healthy-appearing mucosa. The blind loop was also healthy. No blood or inflammation seen anywhere during
the EGD.
-Single balloon enteroscopy (03/2017)�antegrade: Evidence of previous Jaime-en-Y gastric bypass was seen, normal gastric pouch. A single angioectasia was seen in the mid jejunum, treated with APC erythema and ulceration of the mucosa with no
evidence of bleeding was found in the mid jejunum, 1 Endo Clip was applied to the mid jejunum. Gifty ink tattoo was applied to the most distal point of intubation in the jejunum.
Assessment / Plan
-
Pt is an 88-year-old female with past medical history of CKD, jaime n y for obesity, aortic valve replacement, left bundle branch block following aortic valve replacement, pacemaker, anemia of chronic disease, prior GI bleeding 2017 required single
balloon antrograde balloon for treatment of jejunal AVM and noted ulceration , paroxysmal A-fib on Eliquis, hypothyroidism hemorrhagic pericardial effusion with tamponade status post pericardiocentesis, sacral decubitus ulcer, hyperlipidemia,
history of CVA, history of GI bleeding with recent admission 03/17 til 03/26 with GI bleeding. she complete 03/19 SB enteroscopy with stable jaime n y gastrojejunostomy with healthy anastomosis and 03/22 colonoscopy with 3 non bleeding colon angiectasias
treated with monopolar probe, diverticulosis and stool in colon. She was discharged 03/26 with hbg 8.5 but note with period of syncope last Tuesday and further drop of hbg to 6.8 and asked to evaluate. In reviewing with granddaughter noted with
brown stools with streaks of blood. She is also noted with progressive weakness since discharged.
-symptomatic anemia
-recent admission with melena- GI bleeding enteroscopy and colon as noted
-hx GI bleed 2017 required single balloon for jejunal AVM's
-afib on Eliquis
-hx Jaime en for obesity
other med problems
CKD
AVR
left BBB
pacer
-hypothyroidism
-hemorrhagic pericardial effusion with prior tamponade
-CVA
-sacral decub
PLAN:
etiology of bleeding related to SB bleeding vs other with recent melena and now further drop in hbg
may also have multi factorial bleeding with hx bypass and CKD
s/p transfusion up to 9.1 today
cont to trend
cont PPI
ok for clear diet for now
s/p EGD/enteroscopy 03/19 and colonoscopy 03/22
reviewed with granddaughter recent brown stool with streak blood but concern for worsening weakness and syncope
I spoke with [facility] transfer center await call back to confirm if can be transferred
s/p IV iron last admission
Eliquis hold last dose 04/04 AM-- I discussed with granddaughter other option of holding Eliquis but would need to review risk/benefit with cards for continuing
TT Dr. Mcnair and Dr. Means with updates
-
-
Thank you for consultation and allowing me to participate in the patient's care. Please call the literacy education professor GI physician during the after hours with any questions or concerns.
--- NOTE | 2024-04-05 07:30 | W.PN.HOSP.TC ---
Today's Communication/Plan
-
Monitor Hb. Start CLD. GI eval
Assessment / Plan
Assessment / Plan
Physical exam:
General: Well Developed, Well Nourished and No Apparent Distress
HEENT: Normocephalic, Atraumatic and Moist Mucous Membranes
Respiratory: Clear to Auscultation; Negative Wheezes, Rales or Rhonchi
Cardiac: Regular Rhythm and S1/S2
GI: Soft, Nontender and Nondistended
Musculoskeletal: Sacral ulcer decubitus. No Clubbing, No Cyanosis and No Edema
Neuro: Awake, Alert and Oriented, no gross neuro-deficits
Psych: Calm
A/P:
Acute Blood Loss Anemia on Chronic Anemia
GI Bleeding
- Admitted to monitored bed for further evaluation and treatment. Besides GI bleed other etiologies contemplated.
- Hold Eliquis again.
- Transfusion ordered in the ED.
- Follow H&H and provide additional PRBCs as needed. Upon admission Hb 6.8. Hemoglobin 9.1 this morning
- GI consult appreciated. Started on clear liquid diet per GI
- Patient will likely ultimately require VCE as no evident source has been discovered on endoscopic examinations thus far. GI is reaching out to [place] to see if she could be transferred.
- Currently hemodynamically stable.
Paroxysmal Atrial Fibrillation
Prior CVA
- Paced rhythm at present.
- Patient does report prior history of stroke, making Eliquis issue all the more difficult.
- Hold for now. If no clear source of bleeding can be discovered, may need to consider cessation altogether. On the other hand, Watchman procedure also will be contemplated.
Sacral decubital ulcer:
Wound care consult
She had various organisms growing in the past. She is afebrile and normal white count at this point.
Will ask ID for evaluation to see if needs antibiotics
CKD III
- Stable. SCr is at / near known baseline.
- Follow for any changes.
Chronic Lymphedema
- Stable. Continue compression / SCDs.
- Continue current Lasix dosing.
Hypothyroidism
- Stable. Continue current T4 supplementation.
Aortic Stenosis s/p TAVR
LBBB
- Stable. No acute issues.
DVT Prophylaxis: SCDs
Code Status: Full
Anticipated Discharge: 24 - 48 hours
Subjective/Interval History
-
Date of Service: April 05, 2024
Patient had a normal bowel movement today. Denies abdominal pain nausea or vomiting. Afebrile
Objective Data
-
Labs:
Laboratory Results
04/04/24 04/05/24 04/05/24
23:14 02:47 05:39
WBC 5.7
Hgb 7.8 L Cancelled 9.1 L
Hct 22.9 L Cancelled 26.2 L
Plt Count 197
Sodium 136
Potassium 4.0
Chloride 106
Carbon Dioxide 27
BUN 31 H
Creatinine 1.0
Glucose 84
Calcium 8.1 L
04/05/24 04/05/24
08:47 14:47
WBC
Hgb Pending Pending
Hct Pending Pending
Plt Count
Sodium
Potassium
Chloride
Carbon Dioxide
BUN
Creatinine
Glucose
Calcium
Vital Signs:
Vital Signs
Temp Pulse Resp BP Pulse Ox
98.6 F 71 16 139/57 98
04/05/24 03:13 04/05/24 03:13 04/05/24 03:13 04/05/24 03:13 04/05/24 03:13
I&O
04/04/24 04/05/24 04/06/24
06:59 06:59 06:59
Intake Total 500 / 500
Balance 500 / 500
--- NOTE | 2024-04-05 08:09 | VNURNOTE ---
Patient is current with [facility] nursing, PT. Will continue to follow hospital course.
[2024-04-05] MEDS: NEURONTIN 300 MG PO ×2 (08:13→20:10)
[2024-04-05] MEDS: LASIX 20 MG PO (08:13)
[2024-04-05] MEDS: NSS (PRESERVATIVE FREE) 10 ML IV ×2 (08:13→20:10)
[2024-04-05] MEDS: PROTONIX IV 40 MG IV ×2 (08:14→20:10)
--- NOTE | 2024-04-05 11:02 | WOUNDNOTE ---
EUSEBIO RN note: Patient admitted with anemia/GI blled
See H&P for complete history.
PMH: recent pacer, recent R femur ORIF for fracture, a fib, aortic stenosis, TAVR, syncope, CKD3, anemia, bilateral TKR, gastric bypass, venous stasis, sacral stage 4 PI, follows at [facility]. Recent admission for GI bleed 03/16-03/26.
Wound Location and type/assessment: Patient admitted with Sacral stage 4 PI and stage 1 bilateral heels. Reviewed medical record of previous admission and wound care center. Currently using Mesalt packing with foam dressing at home. Recent MRI
showed mild osteomyelitis. Patient has DT VN and grand daughter performs daily wound care. Gluteal cleft with blanchable redness, mild MASD. Patient incontinent of stool, skin care given. Heels with adhesive foams in use. Chronic lymphedema of
legs and pneumatic compression ordered.
Appetite: Good, but on clears since admission.
Pressure redistribution devices in place: Static air overlay applied to bed. Pillows under calves.
Plan: Mesalt ribbon packed into wound, cover with silicone foam daily. Barrier cream to gluteal cleft daily and prn stool. Offload heels and change foams q 2-3 days. Plan is for possible transfer to [place]. Will confirm orders with hospitalist
and update RN. Care plan to be updated and will follow as needed.
Note to case management of equipment requested for discharge: Patient has VN and air overlay at home. Continue to follow up with Dr. Chung.
--- NOTE | 2024-04-05 11:10 | CON.ID ---
Consultation
-
Date/Time Consultation Requested: April 05, 2024 0734
Date/Time Consultation Performed: April 05, 2024 1111
Requesting Provider: Dr. Yon Means
Performing Provider: Dr. Tyra Durham
Reason for Consultation: Sacral wound osteo
Chief Complaint / Past History
Chief Complaint
Anemia
History of Present Illness
88-year-old female with atrial fibrillation on anticoagulation, history of TAVR, pacemaker placement, lymphedema, chronic stage IV sacral decubitus who presented to the hospital 04/04 with drop in hemoglobin. She was recently hospitalized from February
to March 26 with hypertension, melena. She underwent colonoscopy and found to have nonbleeding angioectasia which were treated. GI recommended transfer to [place] if she has recurrence of bleeding. Patient was stabilized. Pelvic MRI ordered
on March 21 for stage IV sacral wound with which showed mild osteomyelitis. Wound was clean. Patient was discharged to home on March 26. On March 31, she presented to the ER after a syncopal episode. Patient had episode of black bowel
movement. H/H was stable and patient was discharged home. She had follow-up with her PCP who ordered follow-up labs. Her hemoglobin dropped to 7.0. She was sent to the ER April 04. ER hemoglobin 6.8. She has blood streaked stools. GI
recommends transfer to [place]. In the meantime Infectious Disease has been consulted for the stage IV sacral decubitus. Patient reports she goes to [facility] wound care center. Outpt 02/20/24 pelvis MRI showed mild osteo. Her
granddaughter packs the wound which is improving.
Past History
Additional Past Medical History:
hx Hemorrhagic pericardial effusion with tamponade
Paroxysmal A-fib
Bradycardia s/p PPM
Aortic stenosis s/p TAVR
Syncope
Hypotension
CKD stage III
Chronic anemia
Hypothyroidism
CVA (07/2021)
ZARIA
Lymphedema
Pericardiocentesis
Thoracentesis
Right ORIF
Bilateral total knee replacement
Gastric bypass
IVC filter
Allergy History:
erythromycin base Allergy (Verified 04/04/24 14:54)
Unknown
Penicillins Allergy (Verified 04/04/24 14:54)
skin rxn after 'shots';Tolerated cephalosporins, Amoxicillin
Medications Reviewed: Yes
Current Antibiotics:
none
Social History
Tobacco: Non-Smoker
Alcohol: None
Drug: None
Living: With Family
Family History
Family History: Not Pertinent
Review of Systems
Review of Systems
General: Negative Fever, Chills or Change in Appetite
Respiratory: Negative Dyspnea or Cough
Gasteroenterology: Other (no diarrhea); Negative Nausea or Vomiting
Genital / Urological: Negative Dysuria or Flank Pain
Endocrine: Weakness
Neurological: Negative Headache
All systems: All other systems were reviewed and were negative
Vital Signs
Temp Pulse Resp BP Pulse Ox
98.3 F 73 16 118/49 96
04/05/24 07:30 04/05/24 08:13 04/05/24 07:30 04/05/24 08:13 04/05/24 07:30
Physical Exam
Physical Exam
Constitutional: No Acute Distress and Comfortable
Cardiovascular: Regular Rate and S1/S2
Pulmonary: Clear
Gastrointestinal: Soft, Non Tender and Non Distended
Extremities: Edema (BLE lymphedema)
Wound: Other (Reviewed wound note: sacral wound now much smaller 1x2x1.5cm now compared to prior photos, no pus, no surrounding erythema. Per wound nurse, probes to bone.)
Neurological: AO x 3
Lab / Diagnostic Study Results
04/05/24 14:47
04/05/24 05:39
Abs Immat Gran (auto) 0.0 10^3/uL (0-0.05) 04/04/24 16:37
Absolute Neuts (auto) 3.5 10^3/uL (1.4-6.5) 04/04/24 16:37
Absolute Lymphs (auto) 1.4 10^3/uL (1.2-3.4) 04/04/24 16:37
Absolute Monos (auto) 0.7 10^3/uL (0.1-0.6) H 04/04/24 16:37
Absolute Basos (auto) 0.0 10^3/uL (0-0.2) 04/04/24 16:37
Immature Gran % 0.2 % (0-0.5) 04/04/24 16:37
Neutrophils % 60.1 % (42.2-75.2) 04/04/24 16:37
Lymphocytes % 24.5 % (20.5-51.1) 04/04/24 16:37
Monocytes % 11.1 % (1.7-9.3) H 04/04/24 16:37
Eosinophils % 3.8 % (0-6) 04/04/24 16:37
Basophils % 0.3 % (0-2) 04/04/24 16:37
PT 19.4 Sec (11.4-14.6) H 04/04/24 16:37
INR 1.62 04/04/24 16:37
Microbiology Results
Micro:
04/05/24 09:16 MRSA Screen - Pending
Nose
02/20/24 Pelvis MRI: Mild osteomyelitis at the sacrococcygeal junction deep to the sacral decubitus ulcer.
Assessment / Plan
# Chronic stage IV sacral decubitus ulcer
# Chronic sacral osteo
- Currently, wound is clean without acute infection at this time.
- Wound is smaller and improving.
- There is no benefit in treating chronic osteo with mcfp antibiotic.
- The indication for antibiotic use is when the wound deteriorates with acute infection
- Recommend continue wound care and observe off abx for now.
# Recurrent GI bleed
# Acute blood loss anemia
-Awaiting transfer to [facility].
ID will will sign off.
--- NOTE | 2024-04-05 12:08 | WOUNDNOTE ---
LOWER BACK/SACRAL PI
--- NOTE | 2024-04-05 12:56 | CM ---
CM met with pt at bedside
Pt reports she lives in a ranch style home with her grand-daughter and her family
Grand-daughter is caterpillar mechanic and assists with adl's as needed, does hog ribber. Ambulates with rolling walker
DME - cane, rolling walker, air mattress,hospital bed, wheel chair
SNF - [facility] in past
HH - Current with [facility]
Has ride at d/c
PCP - Dr Dima Maldonado
Pharm - [facility]
CM will be available for discharge needs
Plan - TBD pending needs
--- NOTE | 2024-04-05 15:43 | W.PN.UPDATE ---
Update Note
Progress Note Update
updated daughter with review with [facility] this am but no return call from [facility] for potential transfer.
[2024-04-05 16:31] LABS: Glucose - Point of Care 157 mg/dl (70-99)
[2024-04-05] MEDS: FLUSH (NSS) 2 FLUSH IV (20:10)
[2024-04-05] MEDS: LIPITOR 40 MG PO (21:39)
[2024-04-06] VITALS (7 sets, daily range): BP systolic 107–141; BP diastolic 48–72; PULSE 71; BMI 27.9
[2024-04-06] MEDS: SYNTHROID 150 MCG PO (05:43)
[2024-04-06 07:07] LABS: % Basophils 0.5 % (0-2); % Eosinophils 4.9 % (0-6); % Immature Granulocytes 0.5 % (0-0.5); % Lymphocytes 29.7 % (20.5-51.1); % Monocytes 8.4 % (1.7-9.3); Absolute Eosinophils 0.3 10^3/uL (0-0.7); Absolute Lymphocytes 1.8 10^3/uL (1.2-3.4); Absolute Monocytes 0.5 10^3/uL (0.1-0.6); Absolute Neutrophils 3.4 10^3/uL (1.4-6.5); Hematocrit 28.2 % (37.0-47.0); Hemoglobin 9.7 g/dL (12.0-16.0); Mean Corp Hgb Conc. 34.4 g/dL (33.0-37.0); Mean Corpuscular Volume 90.1 fL (81.0-99.0); Mean Platelet Volume 9.4 fL (7.4-10.4); Nucleated Red Blood Cells % 0 %; Platelet Count 230 10^3/uL (130-400); Red Blood Cell Count 3.13 10^6/uL (4.20-5.40); Red Cell Dist. Width 17.4 % (11.5-14.5); White Blood Cell Count 6.1 10^3/uL (4.8-10.8)
[2024-04-06 08:01] LABS: ALT (SGPT) 43 U/L (0-35); AST (SGOT) 52 U/L (14-36); Albumin 2.7 g/dl (3.5-5.0); Alkaline Phosphatase 83 U/L (38-126); Blood Urea Nitrogen 26 mg/dl (7-17); Carbon Dioxide 31 mmol/L (22-30); Chloride 100 mmol/L (98-107); Direct Bilirubin 0.2 mg/dl (0.0-0.4); Estimated Creatinine Clearance 36 ml/min; Glucose 79 mg/dl (70-99); Potassium 3.9 mmol/L (3.5-5.1); Sodium 136 mmol/L (135-145); Total Bilirubin 1.3 mg/dl (0.2-1.3); Total Protein 5.6 g/dl (6.3-8.2); eGFR 54.53
[2024-04-06] MEDS: NSS (PRESERVATIVE FREE) 10 ML IV ×2 (08:14→19:50)
[2024-04-06] MEDS: LASIX 20 MG PO (08:14)
[2024-04-06] MEDS: NEURONTIN 300 MG PO ×2 (08:14→19:50)
[2024-04-06] MEDS: PROTONIX IV 40 MG IV ×2 (08:15→19:51)
[2024-04-06 08:17] LABS: Hepatitis B Surface Antigen Negative (Negative)
--- NOTE | 2024-04-06 08:27 | W.PN.HOSP.TC ---
Addendum entered and electronically signed by Yon Means MD 04/06/24 13:36:
Stage 1 bilateral heel pressure injury, POA
Original Note:
Today's Communication/Plan
-
Monitor hemoglobin. Cardiology consult.
Assessment / Plan
Assessment / Plan
Physical exam:
General: Well Developed, Well Nourished and No Apparent Distress
HEENT: Normocephalic, Atraumatic and Moist Mucous Membranes
Respiratory: Clear to Auscultation; Negative Wheezes, Rales or Rhonchi
Cardiac: Regular Rhythm and S1/S2
GI: Soft, Nontender and Nondistended
Musculoskeletal: Sacral ulcer decubitus. No Clubbing, No Cyanosis and No Edema
Neuro: Awake, Alert and Oriented, no gross neuro-deficits
Psych: Calm
A/P:
Acute Blood Loss Anemia on Chronic Anemia
GI Bleeding
- Discussed with transfer line today from [place], Dr Neo Blair. Later on GI also discussed with transfer center and they are not accepting her at this point. Discussed with family today, granddaughter and son.
- Hold Eliquis again. GI requested cardiology evaluation regarding anticoagulation--> cardiology consulted today.
- Transfusion given already.
- Follow H&H and provide additional PRBCs as needed. Upon admission Hb 6.8. Hemoglobin 9.7 this morning
- GI consult appreciated. GI recommends advance diet today-will advance to cholesterol-lowering diet.
- Patient will likely ultimately require VCE as no evident source has been discovered on endoscopic examinations thus far. It appears that this might have been outpatient unless patient rebleeds in the hospital.
- Currently hemodynamically stable.
Paroxysmal Atrial Fibrillation
Prior CVA
- Paced rhythm at present.
- Patient does report prior history of stroke, making Eliquis issue all the more difficult.
- Hold for now. If no clear source of bleeding can be discovered, may need to consider cessation altogether. On the other hand, Watchman procedure also will be contemplated.
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
Wound care consult appreciated
She had various organisms growing in the past. She is afebrile and normal white count at this point.
ID consult appreciated and recommended no need for antibiotics
CKD III
- Stable. SCr is at / near known baseline.
- Follow for any changes.
Chronic Lymphedema
- Stable. Continue compression / SCDs.
- Continue current Lasix dosing.
Hypothyroidism
- Stable. Continue current T4 supplementation.
Aortic Stenosis s/p TAVR
LBBB
- Stable. No acute issues.
DVT Prophylaxis: SCDs
Code Status: Full
Anticipated Discharge: 24 - 48 hours
Subjective/Interval History
-
Date of Service: April 06, 2024
Patient denies abdominal pain nausea or vomiting. No bowel movement today. Denies chest pain or shortness of breath.
Objective Data
-
Labs:
Laboratory Results
04/06/24
06:28
WBC 6.1
Hgb 9.7 L
Hct 28.2 L
Plt Count 230
Sodium 136
Potassium 3.9
Chloride 100
Carbon Dioxide 31 H
BUN 26 H
Creatinine 1.0
Glucose 79
Calcium 8.0 L
Total Bilirubin 1.3
AST 52 H
ALT 43 H
Alkaline Phosphatase 83
Vital Signs:
Vital Signs
Temp Pulse Resp BP Pulse Ox
97.7 F 80 17 118/48 96
04/06/24 07:42 04/06/24 08:14 04/06/24 07:42 04/06/24 08:14 04/06/24 07:42
I&O
04/05/24 04/06/24 04/07/24
06:59 06:59 06:59
Intake Total 500 / 500 990 / 990
Output Total 400 / 400
Balance 500 / 500 590 / 590
[2024-04-06 08:34] LABS: Hepatitis B Core Ab, Total Negative (Negative); Hepatitis B Surface Antibody Negative; Hepatitis C Antibody Negative (Negative)
[2024-04-06 08:46] LABS: Hepatitis A Antibody, Total Negative (Negative)
--- NOTE | 2024-04-06 09:48 | PN.CDI ---
CDI
- -
CDI:
Physician Documentation Request
Admit Date: 04/04/24 20:27
Dear Doctor Means,
Please review the following and provide your response in the progress notes.
Clinical Indicators:
- 04/05 Wound note indicates Stage 1 bilateral heel pressure injury, POA
Physician documentation of the type and location of wounds is required for compliant documentation. Based on the above clinical findings and your assessment, please provide the following in your progress note:
1. Location of the ulcer/wound, including laterality.
2. Type (etiology) of ulcer/wound:
- Diabetic ulcer
- Arterial (ischemic) ulcer
- Traumatic wound
- Venous stasis ulcer
- Pressure (decubitus) ulcer
- Non-healing surgical wound
- Other
- Unable to determine
Use of terms such as suspected, likely, concern for, or probable (associated with a specific diagnosis that is being evaluated, monitored, or treated as if it exists) are acceptable and can be coded in the inpatient setting, when documented at the
time of discharge.
Thank you,
Benja Osuna RN
CDI Specialist
Please use your independent medical judgment in providing your response.
*Source: National Pressure Ulcer Advisory Panel (NPUAP)
--- NOTE | 2024-04-06 10:57 | CON.CAR ---
Addendum entered and electronically signed by Phillip Najera MD 04/06/24 19:35:
88-year-old woman with history of recurrent GI bleeding TAVR, pacemaker, and paroxysmal atrial fibrillation. She had been hospitalized March 17 with syncope and GI bleeding necessitating treatment with fusion. Eliquis was held on more than one
occasion. Endoscopically was unremarkable, colonoscopy showed nonbleeding ectasias and anticoagulation was restarted at discharge. She was seen in the emergency department with syncope on March 31. Hemoglobin was 8.5. She was discharged on
Eliquis and then sent back to the department on April 04 after outpatient hemoglobin was 6.86. She was having hematochezia. Initial plans were for transfer to [place]. She received an additional 2 units of packed cells. She is now off
Eliquis. Now, considered for outpatient capsule study.
PMH/PSH: GI bleeding, gastric ulcer 2016, with recurrent GI bleeding February 2024, syncope, orthostatic hypotension, 23 mm Aquino ELVIS 3 TAVR 2021, left bundle branch block, [facility] dual chamber pacer February 2023, tamponade requiring
pericardiocentesis February 2023, PAF, right distal periprosthetic femoral fracture 2022, CVA 2020 sleep apnea, obesity with gastric bypass, IVC filter, bilateral total knee arthroplasty, spinal stenosis
SH: Non-smoker, no alcohol, lives with family.
FH: Noncontributory
Allergies: Reviewed
Meds reviewed
ROS negative except as above
107/55, pulse 71, respirate 16, afebrile problem, head neck exam unremarkable, lungs are clear, soft systolic murmur at base, JVD okay, abdomen benign extremities without substantial edema, neuro nonfocal
Hemoglobin 9.7, 230, BUN/creatinine 26 and 1.0, AST/ALT 32/43
ECG AV paced
Plan:
She is in sinus rhythm, with a pacemaker, and has had recurrent GI bleeding requiring multiple units of packed cells.
At this point, risk-benefit clearly favors holding Eliquis until GI status is stable. Would not begin anticoagulation prior to capsule study, and would at that point only if identifiable source of bleeding is seen in treated.
We can monitor for A-fib using [facility] which may reduce stroke risk. If A-fib recurs, could consider anticoagulation. If she has intermittent A-fib we could consider amiodarone therapy to suppress A-fib and stroke risk in the absence of
anticoagulation.
If patient stabilizes sufficiently she could be considered for Watchman, though this would require a period of anticoagulation.
We will arrange for outpatient cardiac follow-up.
Please call if further questions.
Original Note:
Consultation
Consultation Request
Date/Time Consultation Requested: 04/06/2024
Date/Time Consultation Performed: 04/06/2024
Requesting Provider: Dr. Means
Performing Provider: Dr. DAMIÁN Najera
Reason for Consultation: GIB on Eliquis
Medical History
-
Chief Complaint: Syncope
History of Present Illness:
HPI: Kianna is an 88-year-old female with past medical history of recurrent GI bleed, syncope, orthostatic hypotension, TAVR, permanent pacemaker implantation, pericardial effusion, paroxysmal atrial fibrillation, CVA, ZARIA, hypertension,
hyperlipidemia, and spinal stenosis. She presents to ER for evaluation of recurrent GI bleed and acute blood loss anemia. She was recently hospitalized at 03/17/2024 to 03/26/2024 with syncope and GI bleed. She required multiple transfusions
in her Eliquis needed to be held multiple times throughout hospitalization due to recurrent anemia and bleeding. She had endoscopy 03/19 which was unremarkable and colonoscopy 03/22/2024 which showed 3 nonbleeding colonic angioectasias. She was
resumed on anticoagulation at discharge, but then presented back to ER 03/31/2024 with syncope while getting into the shower. Hemoglobin at that time was down to 7.0. She then was seen by her PCP and had repeat lab work 04/04/2024 which revealed
hemoglobin down to 6.8. She was sent to ER for further evaluation. [facility]. She was admitted and again Eliquis has been placed on hold. GI is following. No plans for repeat endoscopy/colonoscopy, however
there is consideration for transfer to tertiary care facility for video capsule endoscopy. Hemoglobin has improved following 2 additional units PRBCs 04/04/2024. Hemoglobin up to 9.7 and a of 04/06/2024. Cardiology consulted given recurrent GI
bleeding on Eliquis with history of paroxysmal atrial fibrillation and prior CVA.
PMH:
h/o recurrent GI bleed
Gastric ulcer, transfused 6 units of packed red blood cells, transferred to [facility] 2016
Recent hospitalization 03/17/24 - 03/26/24 w/ syncope, GIB
History of Syncope
previous admission 04/17/2023 with syncope after getting out of car shortly after discharge 04/16/2023
previous admission 04/11/2023 with syncope/unresponsive episode while in the shower
seen in [facility] 03/31/2024 with syncope while getting into shower.
Orthostatic hypotension
TAVR 23mm Aquino ELVIS 3 on 07/01/22
LBBB following TAVR
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
s/p DC [facility]/Murphy PPM placement 03/01/23
Pericardial effusion with tamponade
status post pericardiocentesis 02/11/2023 for 650 mL of bloody fluid, drain removed 02/13/2023
Paroxysmal atrial fibrillation
Chronic Eliquis OAC
Right distal periprosthetic femoral fracture 02/11/23, s/p ORIF 02/16/2023
CVA 07/2021
Obstructive sleep apnea
Chronic Lymphedema
Hypertension
Dyslipidemia
Morbid obesity/gastric bypass 2005
IVC filter was prophylactically placed at the time of her gastric bypass
Bilateral TKA
Spinal stenosis/peripheral neuropathy
Ambulatory dysfunction
h/o UTIs
Past Medical History
Past Medical History: Other (see HPI)
Past Surgical History: Other (gastric bypass 2005, DTH 2016, breast bx, IVCF, TKR , TAVR 06/2022, pericardiocentesis 2022)
Social History
Tobacco: Non-Smoker
Alcohol: None
Drug: None
Living: With Family
Family History
Family History: Cancer and Hypertension
Allergies / Home Medications
Allergy/AdvReac Type Severity Reaction Status Date / Time
erythromycin base Allergy Unknown Verified 04/04/24 14:54
Penicillins Allergy skin rxn Verified 04/04/24 14:54
after
'shots';Tolerated
cephalosporins,
Amoxicillin
�Medication �Instructions �Recorded �Confirmed �Type
cyanocobalamin (vitamin B-12) 1,000 mcg PO DAILY Supplement 07/25/21 04/04/24 History
1,000 mcg tablet
oxybutynin chloride 5 mg tablet 5 mg PO BID Urinary issue 04/28/22 04/04/24 History
calcium carbonate 600 mg-vitamin 1 tab PO DAILY Supplement ##0 02/11/23 04/04/24 History
D3 10 mcg (400 unit) tablet
(Calcium 600 + D(3))
gabapentin 300 mg capsule 300 mg PO BID Pain 02/11/23 04/04/24 History
docusate sodium 100 mg capsule 100 mg PO BID Constipation 02/24/23 04/04/24 History
levothyroxine 150 mcg tablet 150 mcg PO DAILY Thyroid #0 tabs 03/03/23 04/04/24 Rx
apixaban 5 mg tablet (Eliquis) 5 mg PO BID Blood Clot 03/17/24 04/04/24 History
Prevention/Tx
atorvastatin 40 mg tablet 40 mg PO HS High Cholesterol 03/17/24 04/04/24 History
flaxseed oil 1,000 mg capsule 1,000 mg PO HS Supplement 03/17/24 04/04/24 History
furosemide 20 mg tablet 20 mg PO DAILY Fluid 03/17/24 04/04/24 History
Retention/Swelling
omega 7-udj-mje-fish oil 1,200 mg 1 cap PO BID Supplement 03/17/24 04/04/24 History
(144 mg-216 mg) capsule (Fish Oil)
sennosides 8.6 mg tablet (senna) 8.6 mg PO DAILY Constipation 03/17/24 04/04/24 History
therapeutic multivitamin 1 tab PO DAILY Supplement 03/17/24 04/04/24 History
pantoprazole 40 mg tablet,delayed 40 mg PO HS Gastrointestinal Issue 04/04/24 04/04/24 History
release
Review of Systems
-
History Source: Patient
All other systems: Negative unless noted
Physical Exam
Vital Signs
Temp Pulse Resp BP Pulse Ox
97.7 F 80 17 118/48 96
04/06/24 07:42 04/06/24 08:14 04/06/24 07:42 04/06/24 08:14 04/06/24 07:42
Lab Results
04/06/24 06:28
04/06/24 06:28
Physical Exam
General: Well Developed, Well Nourished and No Apparent Distress
Respiratory: Non Labored Respirations
Cardiac: Regular Rhythm
Musculoskeletal: No Clubbing and No Cyanosis
Neuro: AO x 3
Psych: Calm
Impression / Plan
-
PCP:Family Physician:� Dima Maldonado
Director Of Fundraising: Dr. Sales
Impression:
Presented with anemia and bloody stool
Acute blood loss anemia
Sacral decubital ulcer
h/o recurrent GI bleed
Gastric ulcer, transfused 6 units of packed red blood cells, transferred to [facility] 2017
Recent hospitalization 03/17/24 - 03/26/24 w/ syncope, GIB
History of syncope
previous admission 04/17/2023 with syncope after getting out of car shortly after discharge 04/16/2023
previous admission 04/11/2023 with syncope/unresponsive episode while in the shower
seen in [facility] 03/31/2024 with syncope while getting into shower.
Orthostatic hypotension
TAVR 23mm Aquino ELVIS 3 on 07/01/22
LBBB following TAVR
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
s/p DC [facility]/Murphy PPM placement 03/01/23
Pericardial effusion with tamponade
status post pericardiocentesis 02/11/2023 for 650 mL of bloody fluid, drain removed 02/13/2023
Paroxysmal atrial fibrillation
Chronic Eliquis OAC
Right distal periprosthetic femoral fracture 02/11/23, s/p ORIF 02/16/2023
CVA 07/2021
Obstructive sleep apnea
Chronic Lymphedema
Hypertension
Dyslipidemia
Morbid obesity/gastric bypass 2005
IVC filter was prophylactically placed at the time of her gastric bypass
Bilateral TKA
Spinal stenosis/peripheral neuropathy
Ambulatory dysfunction
h/o UTIs
Echo 11/15/2022: Ejection fraction 50 to 55%, status post TAVR mean gradient of 12 mmHg
Echo 02/12/23:�Large pericardial effusion with cardiac tamponade.� LVEF estimated at 45% with no focal wall motion abnormality.� Echocardiogram obtained as a follow-up with resolution of pericardial effusion and pericardial tamponade then
demonstrates normal LV systolic function with LVEF estimated at approximately 55%.� Stable TAVR gradients
Echo February 14 2023:�EF 55% with mild LVH, AVR with peak/mean gradients of 30/13 mmHg, mil to mod TR with PASP 29 mmHg, small pericardial effusion without hemodynamic compromise.
Echo 02/21/23:�EF 55%, trivial pericardial effusion
ECHO 04/12/23: EF 55-60%, mild MR, mild TR, trace pericardial effusion, no significant change compared to prior
Echo 03/19/24: EF 55-60% mild LVH, mild MR, well-seated TAVR, Aquino Elvis 23. Peak/mean gradients are 25/11mmHg. Mild AR, mild TR with PASP 25-30mmHg
Plan:
-Presented with recurrent GIB and acute blood loss anemia.
-Hgb 6.8 on arrival 04/04, up to 9.7 in AM 04/06. s/p 2 units PRBCs 04/04.
-Eliquis remains on hold. With multiple recent episodes of GIB as well as recurrent syncope as recently as 03/31, it seems as though risk of bleeding outweighs risk of stroke at this time.
-This was discussed with patient and she is agreeable to hold anticoagulation.
-Would continue to hold anticoagulation for now. Eventually if she remains stable without recurrent bleeding, would possibly consider Watchman as OP, however unclear if she would be able to tolerate even short term anticoagulation.
-Continue to follow hemoglobin. Workup otherwise per GI.
-Appears euvolemic. Weight stable. Continue PO lasix 20mg daily.
-Echo 03/19/24 with preserved EF adn stable TAVR. No need to repeat at this time.
-Follow for recurrences of afib w/ PPM.
-Will arrange follow up.
HPI: Kianna is an 88-year-old female with past medical history of recurrent GI bleed, syncope, orthostatic hypotension, TAVR, permanent pacemaker implantation, pericardial effusion, paroxysmal atrial fibrillation, CVA, ZARIA, hypertension,
hyperlipidemia, and spinal stenosis. She presents to ER for evaluation of recurrent GI bleed and acute blood loss anemia. She was recently hospitalized at 03/17/2024 to 03/26/2024 with syncope and GI bleed. She required multiple transfusions
in her Eliquis needed to be held multiple times throughout hospitalization due to recurrent anemia and bleeding. She had endoscopy 03/19 which was unremarkable and colonoscopy 03/22/2024 which showed 3 nonbleeding colonic angioectasias. She was
resumed on anticoagulation at discharge, but then presented back to ER 03/31/2024 with syncope while getting into the shower. Hemoglobin at that time was down to 7.0. She then was seen by her PCP and had repeat lab work 04/04/2024 which revealed
hemoglobin down to 6.8. She was sent to ER for further evaluation. She admitted to bloody stools at the time. She was admitted and again Eliquis has been placed on hold. GI is following. No plans for repeat endoscopy/colonoscopy, however
there is consideration for transfer to tertiary care facility for video capsule endoscopy. Hemoglobin has improved following 2 additional units PRBCs 04/04/2024. Hemoglobin up to 9.7 and a of 04/06/2024. Cardiology consulted given recurrent GI
bleeding on Eliquis with history of paroxysmal atrial fibrillation and prior CVA.
Data Reviewed
-
Labs: Labs Reviewed by me
Old Records: Reviewed
--- NOTE | 2024-04-06 11:21 | W.PN.UPDATE ---
Update Note
Progress Note Update
I spoke with Dr. Blair at [facility] regarding the patient in detail . He does not think patient benefits inpatient transfer at this point with no overt GI bleeding/stable Hb. He recommends outpatient video capsule prior to referral for
balloon enteroscopy. Discussed this with hospital/patient's family in detail. Would recommend cardiology opinion on holding anticoagulation with recurrent GI bleeding. If patient is to be discharged we will arrange outpatient video capsule in our
office
--- NOTE | 2024-04-06 13:21 | W.PN.GI.CBS2 ---
Addendum entered and electronically signed by Afshin Novak MD 04/07/24 08:55:
No further recommendation from GI stand point. will s/o.
Original Note:
Today's Communication / Plan
-
Video capsule endoscopy as outpatient as recommended by [facility]
Continue monitor H&H
Cardio eval-regarding long-term anticoagulation-benefit versus risks
Assessment / Plan
-
Pt is an 88-year-old female with past medical history of CKD, traci n y for obesity, aortic valve replacement, left bundle branch block following aortic valve replacement, pacemaker, anemia of chronic disease, prior GI bleeding 2016 required single
balloon antrograde balloon for treatment of jejunal AVM and noted ulceration , paroxysmal A-fib on Eliquis, hypothyroidism hemorrhagic pericardial effusion with tamponade status post pericardiocentesis, sacral decubitus ulcer, hyperlipidemia,
history of CVA, history of GI bleeding with recent admission 03/17 til 03/26 with GI bleeding. she complete 03/19 SB enteroscopy with stable traci n y gastrojejunostomy with healthy anastomosis and 03/22 colonoscopy with 3 non bleeding colon angiectasias
treated with monopolar probe, diverticulosis and stool in colon. She was discharged 03/26 with hbg 8.5 but note with period of syncope last Tuesday and further drop of hbg to 6.8 and asked to evaluate. In reviewing with granddaughter noted with
brown stools with streaks of blood. She is also noted with progressive weakness since discharged.
-symptomatic anemia
-recent admission with melena- GI bleeding enteroscopy and colon as noted
-hx GI bleed 2017 required single balloon for jejunal AVM's
-afib on Eliquis
-hx Traci en for obesity
other med problems
CKD
AVR
left BBB
pacer
-hypothyroidism
-hemorrhagic pericardial effusion with prior tamponade
-CVA
-sacral decub
PLAN:
No further overt GI bleeding. Hemoglobin stable. I discussed again this morning with [facility]-Dr. Blair. He does not think patient benefits inpatient transfer at this point with no overt GI bleeding/stable Hb. He recommends outpatient video
capsule prior to referral for balloon enteroscopy. Discussed this with hospital/patient's family in detail.
Would recommend cardiology opinion on holding anticoagulation with recurrent GI bleeding.
Continue monitor Hb. Transfuse as needed
If patient is to be discharged we will arrange outpatient video capsule in our office next week then referral to [facility]. Message sent to the office
If patient has any active GI bleeding in the hospital will recommend bleeding scan versus CTA
I also recommend family to follow-up with GI at [facility] as outpatient
Total Time Spent with Patient (in minutes): 35
Subjective
Subjective
Date of Service: April 06, 2024
Denies any GI bleeding/GI symptoms tolerating liquid diet.
Objective
Data Reviewed
Laboratory Data:
Laboratory Results
04/06/24 06:28
04/06/24 06:28
Laboratory Results
PT 19.4 Sec (11.4-14.6) H 04/04/24 16:37
INR 1.62 04/04/24 16:37
APTT 44.0 Sec (23.4-35.0) H 04/04/24 16:37
Total Bilirubin 1.3 mg/dl (0.2-1.3) 04/06/24 06:28
AST 52 U/L (14-36) H 04/06/24 06:28
ALT 43 U/L (0-35) H 04/06/24 06:28
Alkaline Phosphatase 83 U/L (38-126) 04/06/24 06:28
Vital Signs and I&O:
Vital Signs
Temp Pulse Resp BP Pulse Ox
98.2 F 80 17 141/72 98
04/06/24 11:02 04/06/24 11:02 04/06/24 11:02 04/06/24 11:02 04/06/24 11:02
I&O
04/05/24 04/06/24 04/07/24
06:59 06:59 06:59
Intake Total 500 / 500 990 / 990
Output Total 400 / 400
Balance 500 / 500 590 / 590
Physical Exam
Physical Exam
GI: Soft, Non Distended and Non Tender
--- NOTE | 2024-04-06 15:13 | CM ---
Case management following for discharge teaching
Chart reviewed
Video capsule endoscopy as outpatient as recommended by [facility]
Continue monitor H&H
PT recs - HH - [facility] aware and referral sent
CM available for d/c needs
Plan - anticipate home with [facility]
--- NOTE | 2024-04-06 16:11 | VNURNOTE ---
Chart reviewed. Resumption referral in [facility] to resume w/[facility].
[2024-04-06] MEDS: LIPITOR 40 MG PO (19:50)
[2024-04-07 03:00] VITALS: BP 109/53
[2024-04-07 03:37] VITALS: BP 109/53
[2024-04-07 05:36] VITALS: BMI 28.3
[2024-04-07] MEDS: SYNTHROID 150 MCG PO (05:55)
[2024-04-07 06:00] VITALS: BMI 28.3
[2024-04-07 07:32] LABS: Hematocrit 29.4 % (37.0-47.0); Hemoglobin 9.7 g/dL (12.0-16.0); Mean Corpuscular Hgb 30.6 pg (27.0-31.0); Mean Corpuscular Volume 92.7 fL (81.0-99.0); Mean Platelet Volume 9.4 fL (7.4-10.4); Platelet Count 241 10^3/uL (130-400); Red Blood Cell Count 3.17 10^6/uL (4.20-5.40); Red Cell Dist. Width 17.3 % (11.5-14.5)
[2024-04-07 07:54] LABS: Blood Urea Nitrogen 28 mg/dl (7-17); Carbon Dioxide 32 mmol/L (22-30); Chloride 100 mmol/L (98-107); Estimated Creatinine Clearance 36 ml/min; Glucose 83 mg/dl (70-99); Potassium 3.6 mmol/L (3.5-5.1); Sodium 135 mmol/L (135-145); eGFR 54.53
[2024-04-07 08:00] VITALS: BP 115/63
[2024-04-07] MEDS: NEURONTIN 300 MG PO (08:12)
[2024-04-07] MEDS: LASIX 20 MG PO (08:12)
[2024-04-07] MEDS: NSS (PRESERVATIVE FREE) 10 ML IV (08:13)
[2024-04-07] MEDS: PROTONIX IV 40 MG IV (08:13)
--- NOTE | 2024-04-07 09:54 | W.PN.HOSP.TC ---
Today's Communication/Plan
-
Discharge planning today.
Assessment / Plan
Assessment / Plan
Physical exam:
General: Chronically ill and No Apparent Distress
HEENT: Normocephalic, Atraumatic and Moist Mucous Membranes
Respiratory: Clear to Auscultation; Negative Wheezes, Rales or Rhonchi
Cardiac: Regular Rhythm and S1/S2
GI: Soft, Nontender and Nondistended
Musculoskeletal: Sacral ulcer decubitus. No Clubbing, No Cyanosis and No Edema
Neuro: Awake, Alert and Oriented, no gross neuro-deficits
Psych: Calm
A/P:
Acute Blood Loss Anemia on Chronic Anemia
GI Bleeding
-No further GI bleeding.
- Discussed with transfer line today from [facility], Dr Neo Blair. Later on GI also discussed with transfer center and they are not accepting her at this point. She will have follow-up as outpatient for capsule endoscopy. Discussed with
granddaughter today. Hemoglobin stable at 9.7. Stable for discharge today. Discussed about rehab but patient and family kindly refused.
- Hold Eliquis again. GI requested cardiology evaluation regarding anticoagulation--> cardiology consulted and recommended to continue holding anticoagulation.
- Transfusion given already.
- Follow H&H and provide additional PRBCs as needed. Upon admission Hb 6.8. Hemoglobin 9.7 this morning
- GI consult appreciated. GI recommends advance diet today-will advance to cholesterol-lowering diet.
- Patient will likely ultimately require VCE as no evident source has been discovered on endoscopic examinations thus far. It appears that this might have been outpatient unless patient rebleeds in the hospital.
- Currently hemodynamically stable.
Paroxysmal Atrial Fibrillation
Prior CVA
- Paced rhythm at present.
- Patient does report prior history of stroke, making Eliquis issue all the more difficult.
- Hold for now. If no clear source of bleeding can be discovered, may need to consider cessation altogether. On the other hand, Watchman procedure also will be contemplated. Cardiology okay to continue hold anticoagulation upon discharge.
Patient and family understands risk of stroke in the setting of lack of anticoagulation but would like to hold off on any further GI outpatient workup for further discussion if restarting anticoagulation at the time.
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
Wound care consult appreciated
She had various organisms growing in the past. She is afebrile and normal white count at this point.
ID consult appreciated and recommended no need for antibiotics
CKD III
- Stable. SCr is at / near known baseline.
- Follow for any changes.
Chronic Lymphedema
- Stable. Continue compression / SCDs.
- Continue current Lasix dosing.
Hypothyroidism
- Stable. Continue current T4 supplementation.
Aortic Stenosis s/p TAVR
LBBB
- Stable. No acute issues.
DVT Prophylaxis: SCDs
Code Status: Full
Anticipated Discharge: Today
Subjective/Interval History
-
Date of Service: April 07, 2024
Patient denies any new complaints. No abdominal pain nausea vomiting. Normal bowel movement. No focal deficits or chest pain or shortness of breath.
Objective Data
-
Labs:
Laboratory Results
04/07/24
06:48
WBC 6.0
Hgb 9.7 L
Hct 29.4 L
Plt Count 241
Sodium 135
Potassium 3.6
Chloride 100
Carbon Dioxide 32 H
BUN 28 H
Creatinine 1.0
Glucose 83
Calcium 8.0 L
Vital Signs:
Vital Signs
Temp Pulse Resp BP Pulse Ox
97.8 F 77 18 115/63 99
04/07/24 08:00 04/07/24 08:00 04/07/24 08:00 04/07/24 08:00 04/07/24 08:00
I&O
04/06/24 04/07/24 04/08/24
06:59 06:59 06:59
Intake Total 990 / 990 570 / 570
Output Total 400 / 400 1300 / 1300
Balance 590 / 590 -730 / -730
[2024-04-07 11:00] VITALS: BP 110/54
--- NOTE | 2024-04-07 14:36 | W.DCSUMMARY ---
Discharge Summary
Discharge Data
Date of Admission: 04/04/24
Date of Discharge: 04/07/24
-
Pending Results: No
Hospital Course
Patient 88 years old female history of recurrent GI bleed, TAVR in the past, pacemaker, paroxysmal atrial fibrillation came into the hospital with recurrent anemia and concerns for recurrent GI bleed while on anticoagulation with Eliquis. Patient
had blood transfusions. Patient Eliquis was held. GI consulted. Patient after transfusion hemoglobin remained stable. GI discussed with transfer center at [facility] with GI group and they felt that there was no need for inpatient transfer but
they would like to see her as outpatient for outpatient capsule endoscopy. Cardiology was also consulted. Cardiology agreed to stop Eliquis and they will reevaluate as outpatient understanding risk of stroke and they will also consider Watchman
procedure down the road after GI workup completed. Patient also was evaluated by ID for her chronic sacral osteomyelitis and ID did not feel she needed any antibiotics. Patient otherwise remained hemodynamically stable, afebrile. Hemoglobin upon
discharge 9.7. She has had normal colored stools on her bowel movements and abdominal exam have been unremarkable. We also discussed the possibility rehab but patient and family adamant of going home. No other events were noticed. Patient will
be discharged in stable condition today.
Discharge duration: 35 minutes
Discharge Plan
-
Patient Disposition: Home with Home Care
Discharge Diagnosis/Procedures: Recurrent anemia. Recurrent gastrointestinal bleed. Paroxysmal atrial fibrillation.
Diet: Low Cholesterol
Activity: As tolerated
Blood Work: Please PCP to order CBC, BMP within 1 week
Activity Restrictions/Additional Instructions:
Wound Care Instructions Wound Care Instructions
Sacrum: clean with saline, skin prep periwound, Mesalt ribbon packed into
wound, cover with silicone foam daily.
Heels: skin prep and adhesive foam change q 2-3 days offload with pillow
under calves
air mattress
Follow up at wound care center call for an appointment.
Referrals:
Dima Maldonado MD [Family Provider] - in less than 1 week
Afshin Novak MD [Active] - in less than 1 week
Phillip Najera MD [Active] - in two to three weeks
Prescriptions:
Continued
cyanocobalamin (vitamin B-12) 1,000 MCG tablet
1,000 mcg PO DAILY
oxybutynin chloride 5 mg Tablet
5 mg PO BID
gabapentin 300 mg capsule
300 mg PO BID
calcium carbonate-vitamin D3 [Calcium 600 + D(3)] 600 mg-10 mcg (400 unit) Tablet
1 tab PO DAILY Qty: 0
docusate sodium 100 mg capsule
100 mg PO BID
levothyroxine 150 MCG tablet
150 mcg PO DAILY Qty: 0 0RF
atorvastatin 40 mg Tablet
40 mg PO HS
sennosides [senna] 8.6 mg Tablet
8.6 mg PO DAILY
therapeutic multivitamin Tablet
1 tab PO DAILY
flaxseed oil 1,000 mg Capsule
1,000 mg PO HS
furosemide 20 mg Tablet
20 mg PO DAILY
omega 0-wnt-nlz-fish oil [Fish Oil] 1,200 (144-216) mg Capsule
1 cap PO BID
pantoprazole 40 mg tablet,delayed release (DR/EC)
40 mg PO HS
Discontinued
Eliquis 5 mg Tablet
5 mg PO BID
Discharge Orders:
Discharge Patient (As Directed); Ordered 04/07/24
Ordered By: Yon Means
Discharge Date and Time
Discharge Date/Time: 04/07/24 17:04
Print Language: KAZAKH
--- NOTE | 2024-04-07 15:00 | CM ---
Pt for discharge today
[facility] to follow
Has ride home with son
Discussed IMM
Plan - home with [facility]
[2024-04-07 15:45] VITALS: BP 103/55
== END 2024-04-07 17:04 | disposition home health service (06) | DRG 377 ==
LOC: 3 WEST ACU 20:27
PROVIDERS: Nurse Practitioner Adult Health; ADMITTING PHYSICIAN Hospitalist; ATTENDING PHYSICIAN Hospitalist; CONSULT PHYSICIAN Internal Medicine Cardiovascular Disease; CONSULT PHYSICIAN Internal Medicine Gastroenterology; CONSULT PHYSICIAN Internal Medicine Infectious Disease; EMERGENCY PHYSICIAN Emergency Medicine; FAMILY PHYSICIAN Family Medicine
PROC: 30233N1 Transfusion of Nonautologous Red Blood Cells into Peripheral Vein, Percutaneous Approach (ICD-10-PCS; 2024-04-04)
DX: K55.21 Angiodysplasia of colon with hemorrhage (principal); L89.154 Pressure ulcer of sacral region, stage 4; D62 Acute posthemorrhagic anemia; M46.28 Osteomyelitis of vertebra, sacral and sacrococcygeal region; K76.0 Fatty (change of) liver, not elsewhere classified; E03.9 Hypothyroidism, unspecified; E66.01 Morbid (severe) obesity due to excess calories; Z68.30 Body mass index [BMI] 30.0-30.9, adult; I12.9 Hypertensive chronic kidney disease with stage 1 through stage 4 chronic kidney disease, or unspecified chronic kidney disease; Z95.2 Presence of prosthetic heart valve; N18.30 Chronic kidney disease, stage 3 unspecified; D63.1 Anemia in chronic kidney disease; I44.1 Atrioventricular block, second degree; I95.1 Orthostatic hypotension; G57.90 Unspecified mononeuropathy of unspecified lower limb; E78.00 Pure hypercholesterolemia, unspecified; G47.33 Obstructive sleep apnea (adult) (pediatric); K64.8 Other hemorrhoids; I44.7 Left bundle-branch block, unspecified; I48.0 Paroxysmal atrial fibrillation; I89.0 Lymphedema, not elsewhere classified; K21.9 Gastro-esophageal reflux disease without esophagitis; K57.30 Diverticulosis of large intestine without perforation or abscess without bleeding; K59.00 Constipation, unspecified; Z96.653 Presence of artificial knee joint, bilateral; Z79.890 Hormone replacement therapy; Z79.899 Other long term (current) drug therapy; Z87.440 Personal history of urinary (tract) infections; Z87.11 Personal history of peptic ulcer disease; Z87.81 Personal history of (healed) traumatic fracture; Z86.73 Personal history of transient ischemic attack (TIA), and cerebral infarction without residual deficits; Z86.79 Personal history of other diseases of the circulatory system; Z95.0 Presence of cardiac pacemaker; Z98.84 Bariatric surgery status; Z88.0 Allergy status to penicillin; Z88.1 Allergy status to other antibiotic agents
CPT/HCPCS: 36430; 80048; 80053; 82248; 82962; 85014; 85018; 85025; 85027; 85610; 85730; 86140; 86704; 86706; 86708; 86803; 86850; 86900; 86901; 86920; 87070; 87340; 96374; 97162; 97166; 97530; 99285; P9016

== ENCOUNTER → 2024-04-17 13:42 | Outpatient (REF) | payer OTHER, SELFPAY ==
[2024-04-17 14:54] LABS: % Basophils 0.6 % (0-2); % Eosinophils 4.2 % (0-6); % Immature Granulocytes 0.4 % (0-0.5); % Lymphocytes 29.9 % (20.5-51.1); % Monocytes 8.8 % (1.7-9.3); % Neutrophils 56.1 % (42.2-75.2); Absolute Eosinophils 0.2 10^3/uL (0-0.7); Absolute Lymphocytes 1.5 10^3/uL (1.2-3.4); Absolute Monocytes 0.4 10^3/uL (0.1-0.6); Absolute Neutrophils 2.8 10^3/uL (1.4-6.5); Hematocrit 32.5 % (37.0-47.0); Hemoglobin 10.3 g/dL (12.0-16.0); Mean Corp Hgb Conc. 31.7 g/dL (33.0-37.0); Mean Corpuscular Hgb 29.8 pg (27.0-31.0); Mean Corpuscular Volume 93.9 fL (81.0-99.0); Mean Platelet Volume 9.5 fL (7.4-10.4); Nucleated Red Blood Cells % 0 %; Platelet Count 217 10^3/uL (130-400); Red Blood Cell Count 3.46 10^6/uL (4.20-5.40); Red Cell Dist. Width 17.2 % (11.5-14.5)
== END ==
LOC: OIDL 13:42
PROVIDERS: ATTENDING PHYSICIAN Internal Medicine Hematology & Oncology
DX: D50.9 Iron deficiency anemia, unspecified (principal)
CPT/HCPCS: 85025

== ENCOUNTER → 2024-04-19 13:58 | Outpatient (REF) | payer OTHER, SELFPAY | LOC: WOUND 13:58 | PROVIDERS: ATTENDING PHYSICIAN Surgery; FAMILY PHYSICIAN Family Medicine | DX: L89.154 Pressure ulcer of sacral region, stage 4 (principal); I87.2 Venous insufficiency (chronic) (peripheral); N18.32 Chronic kidney disease, stage 3b; I89.0 Lymphedema, not elsewhere classified; I12.9 Hypertensive chronic kidney disease with stage 1 through stage 4 chronic kidney disease, or unspecified chronic kidney disease; G89.4 Chronic pain syndrome | CPT/HCPCS: 99213 ==

== ENCOUNTER → 2024-05-31 13:54 | Outpatient (REF) | payer OTHER, SELFPAY | LOC: WOUND 13:54 | PROVIDERS: ATTENDING PHYSICIAN Surgery; FAMILY PHYSICIAN Family Medicine | DX: I87.2 Venous insufficiency (chronic) (peripheral) (principal); I10 Essential (primary) hypertension; N18.32 Chronic kidney disease, stage 3b; I89.0 Lymphedema, not elsewhere classified; I12.9 Hypertensive chronic kidney disease with stage 1 through stage 4 chronic kidney disease, or unspecified chronic kidney disease; G89.4 Chronic pain syndrome | CPT/HCPCS: 99213 ==

== ENCOUNTER → 2024-07-02 11:17 | Outpatient (REF) | payer OTHER, SELFPAY | LOC: WOUND 11:17 | PROVIDERS: ATTENDING PHYSICIAN Surgery; FAMILY PHYSICIAN Family Medicine | DX: L89.154 Pressure ulcer of sacral region, stage 4 (principal); I87.2 Venous insufficiency (chronic) (peripheral); N18.32 Chronic kidney disease, stage 3b; I89.0 Lymphedema, not elsewhere classified; I12.9 Hypertensive chronic kidney disease with stage 1 through stage 4 chronic kidney disease, or unspecified chronic kidney disease; G89.4 Chronic pain syndrome | CPT/HCPCS: 99213 ==

== ENCOUNTER 2024-07-06 06:09 | Day surgery (SDC) | payer OTHER, SELFPAY ==
[2024-06-22 12:51] VITALS: BMI 31.1
[2024-06-22 14:19] LABS: Hemoglobin 11.1 g/dL (12.0-16.0); Mean Corp Hgb Conc. 33.6 g/dL (33.0-37.0); Mean Corpuscular Hgb 29.9 pg (27.0-31.0); Mean Corpuscular Volume 88.9 fL (81.0-99.0); Mean Platelet Volume 10.1 fL (7.4-10.4); Platelet Count 176 10^3/uL (130-400); Red Blood Cell Count 3.71 10^6/uL (4.20-5.40); Red Cell Dist. Width 15.2 % (11.5-14.5)
[2024-06-22 14:40] LABS: ALT (SGPT) 49 U/L (0-35); AST (SGOT) 55 U/L (14-36); Albumin 3.5 g/dl (3.5-5.0); Alkaline Phosphatase 119 U/L (38-126); Blood Urea Nitrogen 33 mg/dl (7-17); Calcium 8.6 mg/dl (8.4-10.2); Carbon Dioxide 28 mmol/L (22-30); Chloride 95 mmol/L (98-107); Estimated Creatinine Clearance 42 ml/min; Glucose 86 mg/dl (70-99); Potassium 4.4 mmol/L (3.5-5.1); Sodium 133 mmol/L (135-145); Total Bilirubin 0.4 mg/dl (0.2-1.3); eGFR > 60.00
[2024-06-22 14:46] LABS: Prealbumin (Transthyretin) 12.4 mg/dl (17.6-36.0)
[2024-06-22 14:59] LABS: Vitamin D, 25-OH*** 73.3 ng/mL (30-80)
[2024-07-06] MEDS: VANCOCIN 200 IV (07:05)
[2024-07-06 07:06] VITALS: BMI 31.1
[2024-07-06 07:07] VITALS: BP 149/70
[2024-07-06] MEDS: TYLENOL 1000 MG PO (07:09)
[2024-07-06 08:21] VITALS: BP 110/62
[2024-07-06 08:30] VITALS: BP 120/98
[2024-07-06 08:45] VITALS: BP 117/92
[2024-07-06 08:56] VITALS: BP 102/64
== END 2024-07-06 09:17 | disposition home or self-care (01) ==
LOC: SDS 06:09
PROVIDERS: ATTENDING PHYSICIAN Surgery; FAMILY PHYSICIAN Family Medicine; OTHER PHYSICIAN Internal Medicine Cardiovascular Disease
DX: N61.20 Granulomatous mastitis, unspecified breast (principal); N64.52 Nipple discharge; N63.25 Unspecified lump in the left breast, overlapping quadrants
CPT/HCPCS: 19120; 88305; 88312; 36415; 80053; 82306; 84134; 85027; 87070; 88341; 88342; L8000

== ENCOUNTER → 2024-07-30 14:02 | Outpatient (REF) | payer OTHER, SELFPAY | LOC: WOUND 14:02 | PROVIDERS: ATTENDING PHYSICIAN Surgery; FAMILY PHYSICIAN Family Medicine | DX: L89.154 Pressure ulcer of sacral region, stage 4 (principal); I87.2 Venous insufficiency (chronic) (peripheral); I10 Essential (primary) hypertension; N18.32 Chronic kidney disease, stage 3b; I89.0 Lymphedema, not elsewhere classified; I12.9 Hypertensive chronic kidney disease with stage 1 through stage 4 chronic kidney disease, or unspecified chronic kidney disease; G89.4 Chronic pain syndrome | CPT/HCPCS: 99212 ==

== ENCOUNTER → 2025-03-26 14:00 | Outpatient (REF) | payer OTHER, SELFPAY ==
[2025-03-26 15:56] LABS: Urine Character Clear (Clear)
[2025-03-26 16:11] LABS: Urine Red Blood Cell 0-2 /HPF (0-2); Urine Squamous Cell 0-2 /LPF (Few); Urine White Cell 0-2 /HPF (0-5)
== END ==
LOC: OIDL 14:00
PROVIDERS: ATTENDING PHYSICIAN Internal Medicine Hematology & Oncology
DX: D50.9 Iron deficiency anemia, unspecified (principal); K90.9 Intestinal malabsorption, unspecified; D63.1 Anemia in chronic kidney disease; N18.30 Chronic kidney disease, stage 3 unspecified; D50.0 Iron deficiency anemia secondary to blood loss (chronic)
CPT/HCPCS: 81003; 81015; 87086

== ENCOUNTER 2025-04-15 14:18 | Inpatient (IN) | payer OTHER, SELFPAY ==
[2025-04-15] VITALS (9 sets, daily range): BP systolic 132–159; BP diastolic 62–113; BMI 25.7
[2025-04-15 11:20] LABS: Hematocrit 39.0 % (37.0-47.0); Hemoglobin 12.7 g/dL (12.0-16.0); Mean Corp Hgb Conc. 32.6 g/dL (33.0-37.0); Mean Corpuscular Volume 81.3 fL (81.0-99.0); Nucleated Red Blood Cells % 0 %; Platelet Count 212 10^3/uL (130-400); Red Cell Dist. Width 15.4 % (11.5-14.5)
--- NOTE | 2025-04-15 11:35 | ED.GENMED ---
History of Present Illness
<Lauryn Goodman MD, Resident - Last Filed: 04/15/25 13:29>
General
Chief Complaint: Hallucinations
Source: patient and family
Exam Limitations: altered mental status
Time Seen by Provider: 04/15/25 11:00
History of Present Illness
History of Present Illness:
Patient is a 89-year-old woman who presents to the emergency department with ongoing hallucinations had episodes of difficulty finding words/slurred speech. Patient is a poor historian so history obtained from son and granddaughter who are at the
bedside. She has a past medical history of CKD stage IIIb, hypertension, TIA, aortic stenosis, coronary artery disease, pacemaker status, hypothyroidism and lymphedema. Family states that the patient started to have change in mental status around
4 to 5 days ago prior to presentation. They stated that the patient had episodes of slurred speech with difficulty finding words. she has been seeing things that are not there and is aware that those visual hallucinations are not real. That she
is consistently seeing ants crawling on objects and on people. In the emergency department she stated that the patient's family had ants on them. She recognized that these and found them amusing. She is aware to person, place, and time. She has
had reduced oral intake since the beginning of her altered mental status. She has not had any nausea, diarrhea, vomiting. She has not had any new urine or in her stools. She has not had any recent falls or illnesses. She lives with her family
Past History
<Lauryn Goodman MD, Resident - Last Filed: 04/15/25 13:29>
Past History
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
ED Past Surgical History: Bowel resection (Gastric bypass), Cardiac (TAVR), Cholecystectomy, Orthopedic (Bilateral knee replacement, ) and Other (Cataracts, Gastric bypas)
Social History
Tobacco: Non-smoker
Alcohol: None
Drug: None
Personal:
Living: with family (Resides with son)
Employment: Retired
Family History
Family History: Other (reviewed and Noncontributory)
Phy Exam
<Lauryn Goodman MD, Resident - Last Filed: 04/15/25 13:29>
General Physical Exam
General Presentation: no apparent distress
General age: appears stated age
General Skin: warm and dry
General Habitus: normal, elderly and frail
General Mental: confused ( oriented to person place and time yet has visual hallucinations)
Musculoskeletal Exam
Musculoskeletal Exam: edema (Lymphedema of the lower limbs bilaterally)
Psychiatric Exam
Psychiatric Exam: normal mood/affect and hallucination ( patient actively having visual hallucinations that she sees ants on objects and on people.)
Course
<Lauryn Goodman MD, Resident - Last Filed: 04/15/25 13:29>
Orders/Labs/Results
Orders:
Orders
04/15/25 11:13
CMP [Comprehensive Metabolic Panel] Urgent
Complete Blood Count/With Diff Urgent
Serum Osmolality Urgent
Comment: ADD ON
04/15/25 11:29
CT Head W/o Iv Contrast Urgent
Comment:
Reason For Exam: Altered Mental Status
04/15/25 11:33
Straight cath- Treatment ONCE
04/15/25 11:59
Osmolality, Random Urine Urgent
Date Specimen was Collected: 04/15/25
Time Specimen was Collected: 11:38
Comment: ADD ON
Urinalysis Reflex To Culture Urgent
Date Specimen was Collected: 04/15/25
Time Specimen was Collected: 11:38
Urine Microscopic Reflex Cult Urgent
Urine Sodium Urgent
Date Specimen was Collected: 04/15/25
Time Specimen was Collected: 11:38
Comment: ADD ON
Urine Culture Urgent
DAWSON Source: U
Specimen Description:
Date Specimen was Collected: 04/15/25
Time Specimen was Collected: 11:38
04/15/25 13:01
Add On- LAB Urgent
Tests Added?: serum osm, urine osm, urine sodium
04/15/25 13:35
Admit/Transfer Patient As Directed
Co-Sign Provider:
Level of Care: Inpatient admission
Assign to:: Telemetry
Physician / Group: anh
Diagnosis: hyponatremia vs CVA
Reason for Telemetry: Arrhythmia
Date to Stop Telemetry: 04/18/25
Time to Stop Telemetry: 11:00
Reason for Hospitalization: hyponatremia vs CVA
Expected length of stay greater than two midnights?: Yes
ELOS- Estimated Length of Stay in days: 2
I certify the patient meets the requirements for IP care: Yes
04/15/25 13:36
Code Status As Directed
Resuscitation Status: Full Code
PRN Pain Medication Management As Directed
May give lesser potent ordered pain med per pt: Yes
preference::
Protocol:: Medication orders for pain may be administered in a
manner that supports deferring to patient preference
when the pt is:
- Requesting an ordered lesser potent pain medication.
Least to most potent pain medications are defined
as: acetaminophen < NSAID < tramadol < opioids
(morphine, oxycodone, hydromorphone).
- Requesting a lesser dose of the same medication IF
ORDERED.
- Requesting a less intrusive route of administration
if both routes are prescribed by the provider (PO <
IV).
04/18/25 11:00
DC Protocol for Telemetry ONCE
Abnormal Lab Results
04/15/25 04/15/25
11:13 11:59
MCH 26.5 L pg
(27.0-31.0)
MCHC 32.6 L g/dL
(33.0-37.0)
RDW 15.4 H %
(11.5-14.5)
Sodium 125 L mmol/L
(135-145)
Chloride 95 L mmol/L
(98-107)
BUN 23 H mg/dl
(7-17)
Serum Osmolality 272 L mOsm/kg
(275-300)
Calcium 8.3 L mg/dl
(8.4-10.2)
Ur Occult Blood Reflex 2+ A
(Negative)
Leukocyte Esterase Rfl 1+ A
(Negative)
Urine Bacteria (Reflex) Few A
(Negative)
Urine Albumin (Reflex) 3+ A
(Neg - Trace)
04/15/25 11:13
04/15/25 11:13
Vital Signs
Initial and Last Documented VS:
Initial Vital Signs
Temp Pulse Resp BP Pulse Ox
36.9 C 70 20 155/81 96
04/15/25 10:39 04/15/25 10:39 04/15/25 10:39 04/15/25 10:39 04/15/25 10:39
Last Documented Vital Signs
Temp Pulse Resp BP Pulse Ox
36.9 C 70 13 132/93 96
04/15/25 10:39 04/15/25 13:15 04/15/25 13:15 04/15/25 13:03 04/15/25 11:39
<Jl Urbina, DO - Last Filed: 04/15/25 14:18>
Orders/Labs/Results
Orders:
Orders
04/15/25 11:13
CMP [Comprehensive Metabolic Panel] Urgent
Complete Blood Count/With Diff Urgent
Serum Osmolality Urgent
Comment: ADD ON
04/15/25 11:29
CT Head W/o Iv Contrast Urgent
Comment:
Reason For Exam: Altered Mental Status
04/15/25 11:33
Straight cath- Treatment ONCE
04/15/25 11:59
Osmolality, Random Urine Urgent
Date Specimen was Collected: 04/15/25
Time Specimen was Collected: 11:38
Comment: ADD ON
Urinalysis Reflex To Culture Urgent
Date Specimen was Collected: 04/15/25
Time Specimen was Collected: 11:38
Urine Microscopic Reflex Cult Urgent
Urine Sodium Urgent
Date Specimen was Collected: 04/15/25
Time Specimen was Collected: 11:38
Comment: ADD ON
Urine Culture Urgent
DAWSON Source: U
Specimen Description:
Date Specimen was Collected: 04/15/25
Time Specimen was Collected: 11:38
04/15/25 13:01
Add On- LAB Urgent
Tests Added?: serum osm, urine osm, urine sodium
04/15/25 13:35
Admit/Transfer Patient As Directed
Co-Sign Provider:
Level of Care: Inpatient admission
Assign to:: Telemetry
Physician / Group: anh
Diagnosis: hyponatremia vs CVA
Reason for Telemetry: Arrhythmia
Date to Stop Telemetry: 04/18/25
Time to Stop Telemetry: 11:00
Reason for Hospitalization: hyponatremia vs CVA
Expected length of stay greater than two midnights?: Yes
ELOS- Estimated Length of Stay in days: 2
I certify the patient meets the requirements for IP care: Yes
04/15/25 13:36
Code Status As Directed
Resuscitation Status: Full Code
PRN Pain Medication Management As Directed
May give lesser potent ordered pain med per pt: Yes
preference::
Protocol:: Medication orders for pain may be administered in a
manner that supports deferring to patient preference
when the pt is:
- Requesting an ordered lesser potent pain medication.
Least to most potent pain medications are defined
as: acetaminophen < NSAID < tramadol < opioids
(morphine, oxycodone, hydromorphone).
- Requesting a lesser dose of the same medication IF
ORDERED.
- Requesting a less intrusive route of administration
if both routes are prescribed by the provider (PO <
IV).
04/18/25 11:00
DC Protocol for Telemetry ONCE
Abnormal Lab Results
04/15/25 04/15/25
11:13 11:59
MCH 26.5 L pg
(27.0-31.0)
MCHC 32.6 L g/dL
(33.0-37.0)
RDW 15.4 H %
(11.5-14.5)
Sodium 125 L mmol/L
(135-145)
Chloride 95 L mmol/L
(98-107)
BUN 23 H mg/dl
(7-17)
Serum Osmolality 272 L mOsm/kg
(275-300)
Calcium 8.3 L mg/dl
(8.4-10.2)
Ur Occult Blood Reflex 2+ A
(Negative)
Leukocyte Esterase Rfl 1+ A
(Negative)
Urine Bacteria (Reflex) Few A
(Negative)
Urine Albumin (Reflex) 3+ A
(Neg - Trace)
04/15/25 11:13
04/15/25 11:13
Vital Signs
Initial and Last Documented VS:
Initial Vital Signs
Temp Pulse Resp BP Pulse Ox
36.9 C 70 20 155/81 96
04/15/25 10:39 04/15/25 10:39 04/15/25 10:39 04/15/25 10:39 04/15/25 10:39
Last Documented Vital Signs
Temp Pulse Resp BP Pulse Ox
36.9 C 70 13 132/93 96
04/15/25 10:39 04/15/25 13:15 04/15/25 13:15 04/15/25 13:03 04/15/25 11:39
<Lauryn Goodman MD, Resident - Last Filed: 04/15/25 13:29>
*Pulse Oximetry
SaO2: 96
Oxygen Mode of Delivery: Room air
Patient hypoxic: no
*Critical Care Note
Total Time (30-74mins, 75-104mins- exclusive of procedures): 60
<Lauryn Goodman MD, Resident - Last Filed: 04/15/25 13:29>
Update Note
Update Note:
Problem List:
Acute Hyponatremia
Altered mental status
Visual hallucinations
Plan:
CBC and CMP ordered
CT head ordered
Patient straight cathed for clean urine analysis
nephrology consulted for acute hyponatremia
Differential Diagnoses:
Acute hyponatremia
Metabolic encephalopathy
UTI
Radiology:
-Head CT conducted on 04/15/2025:
No acute intracranial abnormality
EKG:
not applicable
Labs:
CBC unremarkable, BMP has sodium at 125 signifying acute hyponatremia
Updates:
BMP found sodium at 125. Nephrology consulted for acute hyponatremia. Patient to be admitted to the hospitalist service for acute hyponatremia
ED Attending Note
<Lauryn Goodman MD, Resident - Last Filed: 04/15/25 13:29>
-
Portions of this chart may have been created with voice recognition software.� Occasional wrong word or��sound alike� substitutions may have occurred due to the inherent limitations of voice recognition software.
<Jl Urbina, DO - Last Filed: 04/15/25 14:18>
ED Attending Note
Patient seen and examined by attending physician: Yes
I performed the substantive portion of visit, reviewed & personally made and approve the management plan that is documented in note by myself or LORNE.: Yes
ED Attending Note:
I evaluated patient at bedside. Worsening hallucinations described as seeing ants as well as some questionable slurred speech. CAT scan brain shows no acute abnormality, no UTI however the sodium is only 125 which is acute. Will plan to keep in
the hospital for further management
Discharge Plan
Departure
Patient Disposition: Admit
Date of Disposition: 04/15/25
Time of Disposition: 13:07
Presentation/result/management discussed w/ accepting MD/DO: Hospitalist
Patient with high blood pressure during this ER visit?: Yes
Discharge Problem:
Acute hyponatremia
Prescriptions:
No Action
atorvastatin 40 mg Tablet
40 mg PO HS
therapeutic multivitamin Tablet
1 tab PO DAILY
omega 3-tfz-pui-fish oil [Fish Oil] 1,200 (144-216) mg Capsule
1 cap PO BID
levothyroxine [Synthroid] 100 mcg Tablet
100 mcg PO DAILY
gabapentin 300 mg Capsule
300 mg PO BID
furosemide [Lasix] 40 mg Tablet
40 mg PO DAILY
acetaminophen [Tylenol] 325 mg Tablet
650 mg PO Q6HPRN PRN (Reason: mild pain)
docusate sodium [Colace] 100 mg Capsule
100 mg PO DAILY
vitamin B complex [B Complete] Tablet
1 tab PO DAILY
calcium carbonate [Calcium 600] 600 mg calcium (1,500 mg) Tablet
600 mg PO DAILY
Referrals:
Dima Maldonado MD [Family Provider, Family Practice]
Interventions
Interventions:
*Risk Screen - Suicide Last Done: 04/15/25 10:39
*General Assessment Last Done: 04/15/25 11:19
*Neglect/Abuse Screening Last Done: 04/15/25 10:39
ED- Neurological Assessment Last Done: 04/15/25 11:16
ED-Psychological Assessment Last Done: 04/15/25 13:21
Discharge Date and Time
Print Language: ROMANIAN
[2025-04-15 11:47] LABS: ALT (SGPT) 17 U/L (0-35); AST (SGOT) 29 U/L (14-36); Albumin 4.1 g/dl (3.5-5.0); Alkaline Phosphatase 113 U/L (38-126); Blood Urea Nitrogen 23 mg/dl (7-17); Calcium 8.3 mg/dl (8.4-10.2); Carbon Dioxide 23 mmol/L (22-30); Chloride 95 mmol/L (98-107); Glucose 99 mg/dl (70-99); Potassium 4.9 mmol/L (3.5-5.1); Sodium 125 mmol/L (135-145); Total Protein 7.9 g/dl (6.3-8.2); eGFR > 60.00
[2025-04-15 12:24] LABS: Urine Character Clear (Clear)
[2025-04-15 12:38] LABS: Urine Red Blood Cell 0-2 /HPF (0-2)
--- NOTE | 2025-04-15 13:44 | HPS.HSE ---
Family Physician
-
Family Physician: Dima Maldonado
Chief Complaint
-
hallucinations
History of Present Illness
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
lymphedema, hypothyroidism, history of hemorrhagic pericardial effusion and prior tamponade, Traci-en-Y gastric bypass, presenting with ongoing hallucinations and episodes of difficulty finding words and slurred speech. Around 4 days ago she started
having word finding difficulty slurred speech with intermittent confusion and generalized weakness. She also had headache. No nausea or vomiting or abdominal pain or diarrhea. No neurological symptoms such as facial droop, focal weakness,
numbness or tingling. Daughter thought she was having UTI which she has had before.
Particular over the past 1 to 2 days she developed visual hallucinations with ants crawling on objects and on people. She is aware that she is having hallucinations.
She drinks four 16 ounce water bottles per day maximum, which her daughter encourages her to take.
She had a stroke in the past with no residual symptoms. She is not on any aspirin due to history of GI bleeding.
No new medications recently started.
She does not smoke or drink alcohol.
Medical History
Past Medical History
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
hypothyroidism, history of hemorrhagic pericardial effusion and prior tamponade, Traci-en)
Past Surgical History: Reports None
Social History
Tobacco: Non-smoker
Alcohol: None
Drug: None
Family History
Family History: Not pertinent
Allergies / Home Medications
Allergies reflects when Allergies were last updated in [facility].
Home Medications with original date entered in [facility]
Allergy/Medication List:
Allergies
Allergy/AdvReac Type Severity Reaction Status Date / Time
erythromycin base Allergy Unknown Verified 07/06/24 06:56
Penicillins Allergy skin rxn Verified 07/06/24 06:56
after
'shots';Tolerated
cephalosporins,
Amoxicillin
Home Medications
atorvastatin 40 mg tablet 40 mg PO HS High Cholesterol 03/17/24
omega 1-fte-ada-fish oil 1,200 mg (144 mg-216 mg) capsule (Fish Oil) 1 cap PO BID Supplement 03/17/24
therapeutic multivitamin 1 tab PO DAILY Supplement 03/17/24
acetaminophen 325 mg tablet (Tylenol) 650 mg PO Q6HPRN PRN mild pain 04/15/25
calcium carbonate (Calcium 600) 600 mg PO DAILY 04/15/25
docusate sodium 100 mg capsule (Colace) 100 mg PO DAILY 04/15/25
furosemide 40 mg tablet (Lasix) 40 mg PO DAILY 04/15/25
gabapentin 300 mg capsule 300 mg PO BID 04/15/25
levothyroxine 100 mcg tablet (Synthroid) 100 mcg PO DAILY 04/15/25
vitamin B complex 1 tab PO DAILY 04/15/25
Review of Systems
-
Constitutional: Reports No Symptoms
EENT: Reports No Symptoms
Respiratory: Reports No Symptoms
Cardiac: Reports No Symptoms
Abdomen/GI: Reports No Symptoms
: Reports No Symptoms
Musculoskeletal: Reports No Symptoms
Skin: Reports No Symptoms
Neurological: Reports No Symptoms
Endocrine: Reports No Symptoms
Hematologic/Lymphatic: Reports No Symptoms
Psych: Reports No Symptoms
Physical Exam
Vital Signs
Vital Signs
Temp Pulse Resp BP Pulse Ox
98.4 F 70 13 132/93 96
04/15/25 10:39 04/15/25 13:15 04/15/25 13:15 04/15/25 13:03 04/15/25 11:39
Physical Exam
General: Well Developed, Well Nourished and No Apparent Distress
HEENT: NormoCephalic, Moist mucous membranes and Atraumatic
Respiratory: Clear
Cardiac: S1/S2 and Regular Rhythm; No Murmur or Rub
GI: Soft, Non Tender, Non Distended and Normal Bowel Sounds; No Organomegaly
Rectal: Deferred by Provider
Musculoskeletal: No Clubbing, No Cyanosis and No Edema
Skin: No Rash
Neuro: Nonfocal/grossly intact
Laboratory Results
-
04/15/25 11:13
04/15/25 11:13
Laboratory Results
Total Bilirubin 0.6 mg/dl (0.2-1.3) 04/15/25 11:13
AST 29 U/L (14-36) 04/15/25 11:13
ALT 17 U/L (0-35) 04/15/25 11:13
Alkaline Phosphatase 113 U/L (38-126) 04/15/25 11:13
Data Reviewed
-
Lab Data: Labs Reviewed by me
Old Records: Reviewed
Impression/Plan
-
IMPRESSION:
PLAN:
# Acute metabolic encephalopathy possibly secondary to symptomatic hyponatremia versus CVA
# Hyponatremia likely secondary to SIADH
-Urinalysis negative
-CT head shows no acute abnormality
-Sodium 125
- Check urine sodium, osmolality
-Check TSH
-If no improvement with treatment of hyponatremia will need to consider MRI brain to evaluate for CVA, out of window for any TNK and symptoms mild
-Daughter will obtain information regarding Murphy pacemaker, which needs to be turned off by rep before potential MRI
- Continue Lasix
-Fluid restriction 40 ounces
- Nephrology consulted
History of GI bleeding
Severe aortic stenosis status post TAVR
Paroxysmal atrial fibrillation with pacemaker
Chronic left bundle branch block
Chronic anemia
- Hemoglobin stable
Prior CVA
- Continue statin
Orthostatic hypotension
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
CKD 3
- Renal function at baseline
Chronic lymphedema
-stable
- Continue Lasix
Hypothyroidism
-Continue levothyroxine
Chronic neuropathy
- Continue gabapentin
History of hemorrhagic pericardial effusion with prior tamponade
Obesity status post Traci-en-Y gastric bypass
Full code
DVT prophylaxis�SCDs
Regular diet
--- NOTE | 2025-04-15 14:52 | W.CON.NEPH ---
Consultation
-
Date/Time Consultation Requested: 04/15/2025 1 PM
Date/Time Consultation Performed: 04/15/2025 3 PM
Requesting Provider: Dr. Hoffman
Performing Provider: Dr. Reyna
Reason for Consultation: Hyponatremia
Medical History
-
Chief Complaint: Hyponatremia
History of Present Illness:
This is an 89-year-old female who has hypothyroidism controlled with Synthroid replacement, chronic lymphedema lower extremity edema controlled with daily Lasix and hyperlipidemia controlled on statin therapy. About 4 days ago she had had some
slight decrease intake though not severe. Yesterday her children noticed that she was somewhat more confused. They did not note any issues with ambulation though she does always use a walker. Drop off he had very little to eat but drink only 1.5
L of fluid. This occurred again today but today was complicated by the addition of visual hallucinations. She was aware of these hallucinations. Because of this they brought her to the hospital. Her sodium level was noted to be at she had blood
work 3 days ago drawn by [facility]. The results are not yet known.
Past Medical History
TAVR
Stroke
Pacemaker
Paroxysmal atrial fibrillation
Decubitus ulcers
Hypothyroidism
Hemorrhagic pericardial effusion/tamponade
Traci-en-Y surgery
CKD 3A
sacral osteomyelitis
Social History
Tobacco: Non-Smoker
Alcohol: None
Family History
Family History: Not Pertinent
Allergies / Home Medications
Allergy/AdvReac Type Severity Reaction Status Date / Time
erythromycin base Allergy Unknown Verified 07/06/24 06:56
Penicillins Allergy skin rxn Verified 07/06/24 06:56
after
'shots';Tolerated
cephalosporins,
Amoxicillin
�Medication �Instructions �Recorded �Confirmed �Type
atorvastatin 40 mg tablet 40 mg PO HS High Cholesterol 03/17/24 04/15/25 History
omega 2-xgu-qsj-fish oil 1,200 mg 1 cap PO BID Supplement 03/17/24 04/15/25 History
(144 mg-216 mg) capsule (Fish Oil)
therapeutic multivitamin 1 tab PO DAILY Supplement 03/17/24 04/15/25 History
acetaminophen 325 mg tablet 650 mg PO Q6HPRN PRN mild pain 04/15/25 04/15/25 History
(Tylenol)
calcium carbonate (Calcium 600) 600 mg PO DAILY 04/15/25 04/15/25 History
docusate sodium 100 mg capsule 100 mg PO DAILY 04/15/25 04/15/25 History
(Colace)
furosemide 40 mg tablet (Lasix) 40 mg PO DAILY 04/15/25 04/15/25 History
gabapentin 300 mg capsule 300 mg PO BID 04/15/25 04/15/25 History
levothyroxine 100 mcg tablet 100 mcg PO DAILY 04/15/25 04/15/25 History
(Synthroid)
vitamin B complex 1 tab PO DAILY 04/15/25 04/15/25 History
Review of Systems
-
No chest pain or shortness of breath. Oriented to only year. On repeated questioning she became oriented to month and year
All other systems: Negative unless noted
Physical Exam
Vital Signs
Vital Signs
Temp Pulse Resp BP Pulse Ox
98.4 F 70 13 132/93 96
04/15/25 10:39 04/15/25 13:15 04/15/25 13:15 04/15/25 13:03 04/15/25 11:39
Lab Results
WBC 5.4 10^3/uL (4.8-10.8) 04/15/25 11:13
RBC 4.80 10^6/uL (4.20-5.40) 04/15/25 11:13
Hgb 12.7 g/dL (12.0-16.0) 04/15/25 11:13
Hct 39.0 % (37.0-47.0) 04/15/25 11:13
Plt Count 212 10^3/uL (130-400) 04/15/25 11:13
Sodium 125 mmol/L (135-145) L 04/15/25 11:13
Potassium 4.9 mmol/L (3.5-5.1) 04/15/25 11:13
Chloride 95 mmol/L (98-107) L 04/15/25 11:13
Carbon Dioxide 23 mmol/L (22-30) 04/15/25 11:13
BUN 23 mg/dl (7-17) H 04/15/25 11:13
Creatinine 0.9 mg/dL (0.6-1.0) 04/15/25 11:13
eGFR > 60.00 04/15/25 11:13
Glucose 99 mg/dl (70-99) 04/15/25 11:13
Calcium 8.3 mg/dl (8.4-10.2) L 04/15/25 11:13
Albumin 4.1 g/dl (3.5-5.0) 04/15/25 11:13
Laboratory Tests
04/15/25
11:59
Urine Osmolality 514
Urine Sodium 83
CT head 04/15/2025 no acute disease
Physical Exam
Patient is awake alert oriented and in no distress. Mood and affect were pleasant, insight and judgment were good. Pupils are equal round and reactive to light, extraocular movements are intact, sclera were anicteric. Hearing was normal, ears and
nose are intact. Oropharynx was clear. Neck was supple with trachea midline and no thyromegaly. Heart was regular rate and rhythm without rubs. Lower extremities without edema. Lungs were clear to auscultation bilaterally and with normal
excursion. Abdomen was soft, nontender, with normal active bowel sounds, and no hepatosplenomegaly. Skin was without rash and with normal turgor.
Data Reviewed
-
CT Scan: Report Reviewed by me
Medical Tests (Nuc Med, Echo etc): Report Reviewed by me (Echocardiogram 03/19/2024 EF 55% concentric LVH, mild MR, mild AR, mild TR)
Labs: Labs Reviewed by me
Old Records: Requested
Assessment/Plan
-
Assessment
Hyponatremia
Hallucinations
hypothyroid
Paroxysmal atrial fibrillation
Plan
Hypertonic saline
serial BMP
She appears to have excess ADH though cause is uncertain
Check chest x-ray
Discussed with family
--- NOTE | 2025-04-15 15:27 | CM ---
Met with patient, patient's son; and granddaughter, Mi, who lives with her and is her primary caregiver
Pharmacy verified: [facility] [id number] [facility]
Lives in [place] w/ basement; Ramp to enter and between levels in the house. Bathroom has walk-in stall shower; shower chair
PLOF: granddaughter reported that patient ambulated w/ rolling walker; dressed self; needed assistance w/ toileting on commode and bathing; granddaughter performed other ADLs needed
DME: Hospital Bed w/ air mattress
Family will provide transport home
SNF stay @ [place] 2022; HH/VN 2022 w/ [facility]
Discharge plan to be determined; Case Management will monitor and support needs if/when identified
[2025-04-15] MEDS: SODIUM CHLORIDE 3% 250 IV (16:30)
[2025-04-15] MEDS: NEURONTIN 300 MG PO (20:35)
[2025-04-15 20:59] LABS: Blood Urea Nitrogen 25 mg/dl (7-17); Calcium 8.1 mg/dl (8.4-10.2); Carbon Dioxide 22 mmol/L (22-30); Chloride 99 mmol/L (98-107); Estimated Creatinine Clearance 46 ml/min; Glucose 159 mg/dl (70-99); Potassium 4.5 mmol/L (3.5-5.1); Sodium 127 mmol/L (135-145); eGFR > 60.00
[2025-04-15] MEDS: LIPITOR 40 MG PO (22:10)
[2025-04-16] VITALS (7 sets, daily range): BP systolic 115–196; BP diastolic 66–103; BMI 24.6
[2025-04-16 05:56] LABS: Hematocrit 38.5 % (37.0-47.0); Hemoglobin 12.4 g/dL (12.0-16.0); Mean Corp Hgb Conc. 32.2 g/dL (33.0-37.0); Mean Corpuscular Volume 81.9 fL (81.0-99.0); Nucleated Red Blood Cells % 0 %; Platelet Count 233 10^3/uL (130-400); Red Cell Dist. Width 15.1 % (11.5-14.5)
[2025-04-16] MEDS: SYNTHROID PO (06:14)
[2025-04-16 06:21] LABS: ALT (SGPT) 17 U/L (0-35); AST (SGOT) 34 U/L (14-36); Albumin 3.8 g/dl (3.5-5.0); Alkaline Phosphatase 111 U/L (38-126); Blood Urea Nitrogen 23 mg/dl (7-17); Calcium 8.2 mg/dl (8.4-10.2); Carbon Dioxide 24 mmol/L (22-30); Chloride 101 mmol/L (98-107); Estimated Creatinine Clearance 52 ml/min; Glucose 83 mg/dl (70-99); Potassium 4.2 mmol/L (3.5-5.1); Sodium 131 mmol/L (135-145); Total Protein 7.5 g/dl (6.3-8.2); eGFR > 60.00
[2025-04-16] MEDS: THERAGRAN 1 TABLET PO (08:14)
[2025-04-16] MEDS: NEURONTIN 300 MG PO (08:14)
[2025-04-16] MEDS: COLACE 100 MG PO (08:14)
[2025-04-16] MEDS: LASIX 40 MG PO (08:14)
[2025-04-16] MEDS: OSCAL CAL 500 500 MG PO (08:18)
[2025-04-16] MEDS: B COMPLEX w/VITAMIN C 1 CAPLET PO (08:18)
--- NOTE | 2025-04-16 12:17 | W.PN.NEPH.PH ---
Today's Communication / Plan
-
Samsca
Assessment/Plan
-
Assessment
Hyponatremia
Hallucinations
hypothyroid
Paroxysmal atrial fibrillation
Plan
Low-dose Samsca today
Follow BMP
She appears to have excess ADH though cause is uncertain
Chest x-ray was clear
Discussed with daughter
-
-
Date of Service: April 16, 2025
CC / HPI / ROS
-
Chief Complaint:
Hyponatremia
History of Present Illness:
Sodium up to 131 with hypertonic saline
BP stable
More hallucinations per daughter
Review of Systems: .
No chest pain or shortness of breath
Ate some breakfast this morning
Labs
-
Labs:
WBC 7.4 10^3/uL (4.8-10.8) 04/16/25 05:13
RBC 4.70 10^6/uL (4.20-5.40) 04/16/25 05:13
Hgb 12.4 g/dL (12.0-16.0) 04/16/25 05:13
Hct 38.5 % (37.0-47.0) 04/16/25 05:13
Plt Count 233 10^3/uL (130-400) 04/16/25 05:13
Sodium 131 mmol/L (135-145) L 04/16/25 05:13
Potassium 4.2 mmol/L (3.5-5.1) 04/16/25 05:13
Chloride 101 mmol/L (98-107) 04/16/25 05:13
Carbon Dioxide 24 mmol/L (22-30) 04/16/25 05:13
BUN 23 mg/dl (7-17) H 04/16/25 05:13
Creatinine 0.7 mg/dL (0.6-1.0) 04/16/25 05:13
eGFR > 60.00 04/16/25 05:13
Glucose 83 mg/dl (70-99) 04/16/25 05:13
Calcium 8.2 mg/dl (8.4-10.2) L 04/16/25 05:13
Albumin 3.8 g/dl (3.5-5.0) 04/16/25 05:13
Physical Exam
-
Vital Signs:
Vital Signs
Temp Pulse Resp BP Pulse Ox
97.6 F 76 14 115/66 98
04/16/25 11:27 04/16/25 11:27 04/16/25 11:27 04/16/25 11:27 04/16/25 11:27
Cardiovascular:: Regular rate and rhythm
Respiratory:: Bilateral: Coarse
Lung Excursion:: Normal
Abdomen:: Nontender and Soft
Bowel Sounds:: Normal
Extremity Edema:: None: Bilateral:
[2025-04-16] MEDS: SAMSCA 7.5 MG PO (13:22)
--- NOTE | 2025-04-16 13:36 | W.PN.HOSP.TC ---
Today's Communication/Plan
-
tolvaptan
initiate abx
f/u cultures
Assessment / Plan
Assessment / Plan
Physical Exam
General: Well Developed, Well Nourished and No Apparent Distress
HEENT: NormoCephalic, Moist mucous membranes and Atraumatic
Respiratory: Clear
Cardiac: S1/S2 and Regular Rhythm; No Murmur or Rub
GI: Soft, Non Tender, Non Distended and Normal Bowel Sounds; No Organomegaly
Rectal: Deferred by Provider
Musculoskeletal: No Clubbing, No Cyanosis and No Edema
Skin: No Rash
Neuro: Nonfocal/grossly intact
# Acute metabolic encephalopathy possibly secondary to UTI
#UTI
-abx
-f/u cultures
# Hyponatremia likely secondary to SIADH
-Renal following
-S/p hypertonic saline
-Samsca today
-FWR
-Improving
History of GI bleeding
Severe aortic stenosis status post TAVR
Paroxysmal atrial fibrillation with pacemaker
Chronic left bundle branch block
Chronic anemia
- Hemoglobin stable
Prior CVA
- Continue statin
Orthostatic hypotension
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
CKD 3
- Renal function at baseline
Chronic lymphedema
-stable
- Continue Lasix
Hypothyroidism
-Continue levothyroxine
Chronic neuropathy
- Continue gabapentin
History of hemorrhagic pericardial effusion with prior tamponade
Obesity status post Traci-en-Y gastric bypass
Full code
DVT prophylaxis�SCDs
Regular diet
Anticipated Discharge: Within 24 hours
Subjective/Interval History
-
Date of Service: April 16, 2025
Still hallucinating, worse than yesterday
Objective Data
-
Labs:
Laboratory Results
04/16/25
05:13
WBC 7.4
Hgb 12.4
Hct 38.5
Plt Count 233
Sodium 131 L
Potassium 4.2
Chloride 101
Carbon Dioxide 24
BUN 23 H
Creatinine 0.7
Glucose 83
Calcium 8.2 L
Total Bilirubin 0.6
AST 34
ALT 17
Alkaline Phosphatase 111
Vital Signs:
Vital Signs
Temp Pulse Resp BP Pulse Ox
97.6 F 76 14 115/66 98
04/16/25 11:27 04/16/25 11:27 04/16/25 11:27 04/16/25 11:27 04/16/25 11:27
I&O
04/15/25 04/16/25 04/17/25
06:59 06:59 06:59
Intake Total 240 / 240
Balance 240 / 240
Review of Systems
-
History Source: Patient and Family (reviewed with dwayne dgt)
Data Reviewed
-
Total Time Spent with Patient (in minutes): 45
Diagnostic Radiology: Report Reviewed by me
CT Scan: Report Reviewed by me (Nothing acute seen on head CT)
Labs: Labs Reviewed by me
[2025-04-16] MEDS: ROCEPHIN 1000 MG IV (13:55)
[2025-04-16] MEDS: STERILE WATER FOR INJECTION 10 ML IV (13:55)
[2025-04-16] MEDS: HEPARIN 5000 UNITS SC (16:45)
[2025-04-16] MEDS: LIPITOR 40 MG PO (22:39)
[2025-04-16] MEDS: MELATONIN 3 MG PO (23:55)
[2025-04-17] VITALS (7 sets, daily range): BP systolic 123–162; BP diastolic 61–90; PULSE 72; O2SAT 95; BMI 24.6
[2025-04-17] MEDS: HEPARIN 5000 UNITS SC ×4 (00:58→23:04)
[2025-04-17 05:58] LABS: Hematocrit 36.3 % (37.0-47.0); Hemoglobin 11.7 g/dL (12.0-16.0); Mean Corp Hgb Conc. 32.2 g/dL (33.0-37.0); Mean Corpuscular Volume 81.9 fL (81.0-99.0); Platelet Count 187 10^3/uL (130-400); Red Cell Dist. Width 15.4 % (11.5-14.5)
[2025-04-17 06:13] LABS: Blood Urea Nitrogen 25 mg/dl (7-17); Calcium 7.7 mg/dl (8.4-10.2); Carbon Dioxide 27 mmol/L (22-30); Chloride 104 mmol/L (98-107); Estimated Creatinine Clearance 40 ml/min; Glucose 87 mg/dl (70-99); Potassium 4.3 mmol/L (3.5-5.1); Sodium 134 mmol/L (135-145); eGFR > 60.00
[2025-04-17] MEDS: COLACE 100 MG PO (09:43)
[2025-04-17] MEDS: THERAGRAN 1 TABLET PO (09:43)
[2025-04-17] MEDS: OSCAL CAL 500 500 MG PO (09:43)
[2025-04-17] MEDS: LASIX 40 MG PO (09:43)
[2025-04-17] MEDS: B COMPLEX w/VITAMIN C 1 CAPLET PO (09:43)
[2025-04-17] MEDS: SYNTHROID 100 MCG PO (09:46)
--- NOTE | 2025-04-17 13:02 | W.PN.NEPH.PH ---
Today's Communication / Plan
-
AM labs no need for tolvaptan today
Assessment/Plan
-
Assessment
Hyponatremia
Hallucinations
hypothyroid
Paroxysmal atrial fibrillation
Plan
Sodium 134 status post [facility] 04/16
Follow BMP
Klebsiella urine= antibiotics
-
-
Date of Service: April 17, 2025
CC / HPI / ROS
-
Chief Complaint:
Hyponatremia
History of Present Illness:
Sodium improved
BP stable
More hallucinations per daughter
Review of Systems: .
No chest pain or shortness of breath
Patient no hallucination
Labs
-
Labs:
WBC 8.6 10^3/uL (4.8-10.8) 04/17/25 05:11
RBC 4.43 10^6/uL (4.20-5.40) 04/17/25 05:11
Hgb 11.7 g/dL (12.0-16.0) L 04/17/25 05:11
Hct 36.3 % (37.0-47.0) L 04/17/25 05:11
Plt Count 187 10^3/uL (130-400) 04/17/25 05:11
Sodium 134 mmol/L (135-145) L 04/17/25 05:11
Potassium 4.3 mmol/L (3.5-5.1) 04/17/25 05:11
Chloride 104 mmol/L (98-107) 04/17/25 05:11
Carbon Dioxide 27 mmol/L (22-30) 04/17/25 05:11
BUN 25 mg/dl (7-17) H 04/17/25 05:11
Creatinine 0.9 mg/dL (0.6-1.0) 04/17/25 05:11
eGFR > 60.00 04/17/25 05:11
Glucose 87 mg/dl (70-99) 04/17/25 05:11
Calcium 7.7 mg/dl (8.4-10.2) L 04/17/25 05:11
Albumin 3.8 g/dl (3.5-5.0) 04/16/25 05:13
Physical Exam
-
Vital Signs:
Vital Signs
Temp Pulse Resp BP Pulse Ox
97.8 F 74 18 123/61 99
04/17/25 11:00 04/17/25 11:00 04/17/25 11:00 04/17/25 11:00 04/17/25 11:00
Cardiovascular:: Regular rate and rhythm
Respiratory:: Bilateral: Coarse
Lung Excursion:: Normal
Abdomen:: Nontender and Soft
Bowel Sounds:: Normal
Extremity Edema:: None: Bilateral:
--- NOTE | 2025-04-17 13:06 | W.PN.HOSP.TC ---
Today's Communication/Plan
-
Cefdinir to complete total abx course of 10 days
F/u BMP in 3 days with PCP
F/u PCP, Nephro outpt
Assessment / Plan
Assessment / Plan
Physical Exam
General: Well Developed, Well Nourished and No Apparent Distress
HEENT: NormoCephalic, Moist mucous membranes and Atraumatic
Respiratory: Clear
Cardiac: S1/S2 and Regular Rhythm; No Murmur or Rub
GI: Soft, Non Tender, Non Distended and Normal Bowel Sounds; No Organomegaly
Rectal: Deferred by Provider
Musculoskeletal: No Clubbing, No Cyanosis and No Edema
Skin: No Rash
Neuro: Nonfocal/grossly intact
# Acute metabolic encephalopathy possibly secondary to UTI
#UTI, Klebsiella
-abx - improving on Ceftriaxone
-f/u cultures
-Transition to Cefdinir to complete 10 day course
# Hyponatremia likely secondary to SIADH
-Renal following
-S/p hypertonic saline
-Samsca 04/16
-FWR
-Improving
-F/u BMP in 3 days with PCP
-F/u Renal outpt
History of GI bleeding
Severe aortic stenosis status post TAVR
Paroxysmal atrial fibrillation with pacemaker
Chronic left bundle branch block
Chronic anemia
- Hemoglobin stable
Prior CVA
- Continue statin
Orthostatic hypotension
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
CKD 3
- Renal function at baseline
Chronic lymphedema
-stable
- Continue Lasix
Hypothyroidism
-Continue levothyroxine
Chronic neuropathy
- Continue gabapentin
History of hemorrhagic pericardial effusion with prior tamponade
Obesity status post Traci-en-Y gastric bypass
Full code
DVT prophylaxis�SCDs
Regular diet
More than 30 minutes spent in discharge including
Final examination of the patient
Summarizing hospital stay
Instructions for continuing care to all relevant caregivers
Preparation of discharge records, prescriptions, and referral forms
Total time spent (in minutes): 36
Anticipated Discharge: Today
Subjective/Interval History
-
Date of Service: April 17, 2025
no acute events overnight
Objective Data
-
Labs:
Laboratory Results
04/17/25
05:11
WBC 8.6
Hgb 11.7 L
Hct 36.3 L
Plt Count 187
Sodium 134 L
Potassium 4.3
Chloride 104
Carbon Dioxide 27
BUN 25 H
Creatinine 0.9
Glucose 87
Calcium 7.7 L
Vital Signs:
Vital Signs
Temp Pulse Resp BP Pulse Ox
97.8 F 74 18 123/61 99
04/17/25 11:00 04/17/25 11:00 04/17/25 11:00 04/17/25 11:00 04/17/25 11:00
I&O
04/16/25 04/17/25 04/18/25
06:59 06:59 06:59
Intake Total 240 / 240
Balance 240 / 240
Review of Systems
-
History Source: Patient
All other systems: Not reviewed unless documented
Physical Exam
-
General: Well Developed
HEENT: Normocephalic
Respiratory: Clear to Auscultation
Cardiac: Regular Rhythm
GI: Soft and Nontender
Musculoskeletal: Normal Gait & Station
Skin: Warm
Neuro: Awake, Alert and Oriented
Psych: Calm
Data Reviewed
-
Total Time Spent with Patient (in minutes): 45
Diagnostic Radiology: Report Reviewed by me
CT Scan: Report Reviewed by me (Nothing acute seen on head CT)
Labs: Labs Reviewed by me
--- NOTE | 2025-04-17 13:09 | W.DS.TRANS ---
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
-
Discharge Instructions:
Discharge Diagnosis/Procedures UTI
Encephalopathy
Hyponatremia
Diet Restrict fluids to 48 oz,Low Cholesterol,Low Fat
Blood Work CBC and BMP in 3 days with PCP
Instructions:
Stand-Alone Forms:
Changes to Home Medications: Yes
Discharge Medications:
DC Medications w/original date entered in [facility]
atorvastatin 40 mg tablet 40 mg PO HS High Cholesterol 03/17/24
omega 4-dsu-ypd-fish oil 1,200 mg (144 mg-216 mg) capsule (Fish Oil) 1 cap PO BID Supplement 03/17/24
therapeutic multivitamin 1 tab PO DAILY Supplement 03/17/24
acetaminophen 325 mg tablet (Tylenol) 650 mg PO Q6HPRN PRN mild pain 04/15/25
calcium carbonate (Calcium 600) 600 mg PO DAILY 04/15/25
docusate sodium 100 mg capsule (Colace) 100 mg PO DAILY 04/15/25
furosemide 40 mg tablet (Lasix) 40 mg PO DAILY 04/15/25
gabapentin 300 mg capsule 300 mg PO BID 04/15/25
levothyroxine 100 mcg tablet (Synthroid) 100 mcg PO DAILY 04/15/25
vitamin B complex 1 tab PO DAILY 04/15/25
cefdinir 300 mg capsule 300 mg PO Q12H 8 days #16 caps 04/17/25
Home Medication Changes
cefdinir 300 mg capsule 300 mg PO Q12H 8 days #16 caps 04/17/25
Pending Results: No
[2025-04-17] MEDS: STERILE WATER FOR INJECTION 10 ML IV (15:22)
[2025-04-17] MEDS: ROCEPHIN 1000 MG IV (15:25)
--- NOTE | 2025-04-17 16:23 | CM ---
CM met with Kianna and her granddaughter to discuss discharge planning needs. Therapies evaluated and have concerns about Kianna's family ability to provide the care she needs at this time due to decreased endurance and increased personal care
needs (toileting and bathing). Kianna has been cleared for discharge today, however family is now balking at discharge due to higher care needs.
IMM provided during our initial conversation, and I returned later in the day to discuss the pt/family ability to appeal the discharge.
[2025-04-17] MEDS: LIPITOR 40 MG PO (22:11)
[2025-04-17] MEDS: MELATONIN 3 MG PO (23:04)
[2025-04-18 03:00] VITALS: BP 126/72
[2025-04-18] MEDS: SYNTHROID 100 MCG PO (05:20)
[2025-04-18 05:52] LABS: Blood Urea Nitrogen 30 mg/dl (7-17); Calcium 8.0 mg/dl (8.4-10.2); Carbon Dioxide 26 mmol/L (22-30); Chloride 105 mmol/L (98-107); Estimated Creatinine Clearance 40 ml/min; Glucose 87 mg/dl (70-99); Potassium 4.0 mmol/L (3.5-5.1); Sodium 135 mmol/L (135-145); eGFR > 60.00
[2025-04-18 06:00] VITALS: BMI 24.1
[2025-04-18 07:00] VITALS: BP 113/78
[2025-04-18] MEDS: LASIX 40 MG PO (08:33)
[2025-04-18] MEDS: HEPARIN 5000 UNITS SC (08:33)
[2025-04-18] MEDS: OSCAL CAL 500 500 MG PO (08:34)
[2025-04-18] MEDS: B COMPLEX w/VITAMIN C 1 CAPLET PO (08:34)
[2025-04-18] MEDS: COLACE 100 MG PO (08:34)
[2025-04-18] MEDS: THERAGRAN 1 TABLET PO (08:34)
[2025-04-18 10:53] VITALS: BP 122/71
--- NOTE | 2025-04-18 11:09 | W.PN.HOSP.TC ---
Addendum entered and electronically signed by Judd Cordova MD 04/18/25 17:34:
[id number]
Addendum entered and electronically signed by Judd Cordova MD 04/18/25 15:12:
#Acute metabolic encephalopathy secondary UTI
#Hallucinations
� Resolved with antibiotics
Original Note:
Today's Communication/Plan
-
Cefdinir to complete total abx course of 10 days
F/u BMP in 3 days with PCP
F/u PCP, Nephro outpt
Assessment / Plan
Assessment / Plan
Physical Exam
General: Well Developed, Well Nourished and No Apparent Distress
HEENT: NormoCephalic, Moist mucous membranes and Atraumatic
Respiratory: Clear
Cardiac: S1/S2 and Regular Rhythm; No Murmur or Rub
GI: Soft, Non Tender, Non Distended and Normal Bowel Sounds; No Organomegaly
Rectal: Deferred by Provider
Musculoskeletal: No Clubbing, No Cyanosis and No Edema
Skin: No Rash
Neuro: Nonfocal/grossly intact
# Acute metabolic encephalopathy possibly secondary to UTI
#UTI, Klebsiella
-abx - improving on Ceftriaxone
-f/u cultures
-Transition to Cefdinir to complete 10 day course
# Hyponatremia likely secondary to SIADH
-Renal following
-S/p hypertonic saline
-Samsca 04/16
-FWR
-Improving
-F/u BMP in 3 days with PCP
-F/u Renal outpt
History of GI bleeding
Severe aortic stenosis status post TAVR
Paroxysmal atrial fibrillation with pacemaker
Chronic left bundle branch block
Chronic anemia
- Hemoglobin stable
Prior CVA
- Continue statin
Orthostatic hypotension
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
CKD 3
- Renal function at baseline
Chronic lymphedema
-stable
- Continue Lasix
Hypothyroidism
-Continue levothyroxine
Chronic neuropathy
- Continue gabapentin
History of hemorrhagic pericardial effusion with prior tamponade
Obesity status post Traci-en-Y gastric bypass
Full code
DVT prophylaxis�SCDs
Regular diet
More than 30 minutes spent in discharge including
Final examination of the patient
Summarizing hospital stay
Instructions for continuing care to all relevant caregivers
Preparation of discharge records, prescriptions, and referral forms
Total time spent (in minutes): 36
Anticipated Discharge: Today
Subjective/Interval History
-
Date of Service: April 18, 2025
no acute events overnight
Objective Data
-
Labs:
Laboratory Results
04/18/25
05:14
Sodium 135
Potassium 4.0
Chloride 105
Carbon Dioxide 26
BUN 30 H
Creatinine 0.9
Glucose 87
Calcium 8.0 L
Vital Signs:
Vital Signs
Temp Pulse Resp BP Pulse Ox
97.5 F 80 17 122/71 99
04/18/25 10:53 04/18/25 10:53 04/18/25 10:53 04/18/25 10:53 04/18/25 10:53
I&O
04/17/25 04/18/25 04/19/25
06:59 06:59 06:59
Intake Total 600 / 600 240 / 240
Balance 600 / 600 240 / 240
Review of Systems
-
History Source: Patient
All other systems: Not reviewed unless documented
Physical Exam
-
General: Well Developed
HEENT: Normocephalic
Respiratory: Clear to Auscultation
Cardiac: Regular Rhythm
GI: Soft and Nontender
Musculoskeletal: Normal Gait & Station
Skin: Warm
Neuro: Awake, Alert and Oriented
Psych: Calm
Data Reviewed
-
Total Time Spent with Patient (in minutes): 45
Diagnostic Radiology: Report Reviewed by me
CT Scan: Report Reviewed by me (Nothing acute seen on head CT)
Labs: Labs Reviewed by me
--- NOTE | 2025-04-18 11:22 | W.DS.TRANS ---
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
-
Discharge Instructions:
Discharge Diagnosis/Procedures UTI
Encephalopathy
Hyponatremia
Diet Restrict fluids to 48 oz,Low Cholesterol,Low Fat
Blood Work CBC and BMP in 3 days with PCP
Instructions:
Stand-Alone Forms:
Changes to Home Medications: Yes
Discharge Medications:
DC Medications w/original date entered in [facility]
atorvastatin 40 mg tablet 40 mg PO HS High Cholesterol 03/17/24
omega 2-wbz-[id number]-fish oil 1,200 mg (144 mg-216 mg) capsule (Fish Oil) 1 cap PO BID Supplement 03/17/24
therapeutic multivitamin 1 tab PO DAILY Supplement 03/17/24
acetaminophen 325 mg tablet (Tylenol) 650 mg PO Q6HPRN PRN mild pain 04/15/25
calcium carbonate (Calcium 600) 600 mg PO DAILY 04/15/25
docusate sodium 100 mg capsule (Colace) 100 mg PO DAILY 04/15/25
furosemide 40 mg tablet (Lasix) 40 mg PO DAILY 04/15/25
gabapentin 300 mg capsule 300 mg PO BID 04/15/25
levothyroxine 100 mcg tablet (Synthroid) 100 mcg PO DAILY 04/15/25
vitamin B complex 1 tab PO DAILY 04/15/25
cefdinir 300 mg capsule 300 mg PO Q12H 8 days #16 caps 04/17/25
Home Medication Changes
cefdinir 300 mg capsule 300 mg PO Q12H 8 days #16 caps 04/17/25
Pending Results: No
== END 2025-04-18 12:15 | disposition home health service (06) | DRG 643 ==
LOC: 3 WEST ACU 14:18
PROVIDERS: ADMITTING PHYSICIAN Hospitalist; ATTENDING PHYSICIAN Internal Medicine; CONSULT PHYSICIAN Specialist; EMERGENCY PHYSICIAN Emergency Medicine; FAMILY PHYSICIAN Family Medicine
DX: E22.2 Syndrome of inappropriate secretion of antidiuretic hormone (principal); G93.41 Metabolic encephalopathy; N39.0 Urinary tract infection, site not specified; M46.28 Osteomyelitis of vertebra, sacral and sacrococcygeal region; B96.1 Klebsiella pneumoniae [K. pneumoniae] as the cause of diseases classified elsewhere; E78.00 Pure hypercholesterolemia, unspecified; Z86.73 Personal history of transient ischemic attack (TIA), and cerebral infarction without residual deficits; Z95.2 Presence of prosthetic heart valve; Z95.0 Presence of cardiac pacemaker; I48.0 Paroxysmal atrial fibrillation; D64.9 Anemia, unspecified; L89.159 Pressure ulcer of sacral region, unspecified stage; N18.32 Chronic kidney disease, stage 3b; I89.0 Lymphedema, not elsewhere classified; E03.9 Hypothyroidism, unspecified; Z88.0 Allergy status to penicillin; Z79.890 Hormone replacement therapy; I44.7 Left bundle-branch block, unspecified; I95.1 Orthostatic hypotension; G57.90 Unspecified mononeuropathy of unspecified lower limb; Z98.84 Bariatric surgery status; I12.9 Hypertensive chronic kidney disease with stage 1 through stage 4 chronic kidney disease, or unspecified chronic kidney disease; I25.10 Atherosclerotic heart disease of native coronary artery without angina pectoris; K21.9 Gastro-esophageal reflux disease without esophagitis; M54.30 Sciatica, unspecified side; R54 Age-related physical debility; Z79.899 Other long term (current) drug therapy; Z96.653 Presence of artificial knee joint, bilateral
CPT/HCPCS: 70450; 71046; 80048; 80053; 81003; 81015; 83930; 83935; 84300; 84439; 84443; 85025; 85027; 87077; 87086; 87186; 97163; 99291

== ENCOUNTER → 2025-07-03 12:13 | Outpatient (REF) | payer OTHER, SELFPAY ==
[2025-07-03 12:24] LABS: Hematocrit 29.9 % (37.0-47.0); Hemoglobin 9.6 g/dL (12.0-16.0); Mean Corp Hgb Conc. 32.1 g/dL (33.0-37.0); Mean Corpuscular Volume 87.4 fL (81.0-99.0); Platelet Count 203 10^3/uL (130-400); Red Cell Dist. Width 22.1 % (11.5-14.5)
== END ==
LOC: OIDL 12:13
PROVIDERS: ATTENDING PHYSICIAN Internal Medicine Hematology & Oncology; FAMILY PHYSICIAN Family Medicine
DX: D50.9 Iron deficiency anemia, unspecified (principal); K90.9 Intestinal malabsorption, unspecified; D63.1 Anemia in chronic kidney disease; N18.30 Chronic kidney disease, stage 3 unspecified; D50.0 Iron deficiency anemia secondary to blood loss (chronic)
CPT/HCPCS: 36415; 85025